=== PATIENT | male | born 1965 | race Caucasian/White ===

== ENCOUNTER 2019-07-12 01:32 | Emergency (ER) | payer SELFPAY ==
[2019-07-12 01:42] VITALS: BP 140/105; PULSE 98; RESP 16; TEMP 36.6; O2SAT 96; BMI 32.9
--- NOTE | 2019-07-12 01:46 | ED_ITS ---
Entered by Le Metzger, acting as scribe for NilsValeriyestefanía Tipton DO Jul 12, 2019 01:32 HPI - Fall General: Chief Complaint: Fall Stated Complaint: FALL Time Seen by Provider: 07/12/19 01:43 Source: patient and family Mode of arrival: wheelchair History of Present Illness: HPI Narrative: 54 y/o male presents to the ED with complaint of pain post fall. states he has had low grade fever, body aches, JAIMES, and cough since Saturday. Tonight he had a syncopal episode and fell in the floor. He was sitting on a bar stool eating a sandwich, when this occurred. states she found him laying on the hardwood floor. Since the fall he reports sharp pains in his left chest that are worsened with deep breaths/ movement. He states he has had broken ribs in the past and this pain feels similar to that. MD complaint: fall Fall from: chair Place fall occurred: home Loss of consciousness: Yes Context: recent illness Location of injury: chest Severity: moderate Quality: sharp Associated symptoms-after fall: Reports chest pain, headache(s) and neck pain; Denies confusion, hematuria or vertigo Review of Systems Const: Reports: fever, chills and body aches Eyes: Denies: change in vision or blurry vision ENMT: Reports: painful swallowing; Denies: swelling of lips/tongue, bleeding gums, dental pain, Change in hearing, nose bleeds, post nasal drip or facial/sinus pain Card: Reports: chest pain; Denies: palpitations, irregular heart rhythm, edema, swelling of feet/ankles or shortness of breath when lying down Resp: Reports: non-productive cough; Denies: productive cough or wheezing GI: Denies: nausea, vomiting, rectal pain, blood in stool or black tarry stool : Denies: difficulty urinating, painful urination, urinary frequency, urinary urgency or blood in urine Musc: Reports: neck pain; Denies: redness or joint warmth Skin/Breast: Denies: rash, itching or redness Neuro: Reports: headache; Denies: dizziness, vertigo, confusion or seizure-like activity Psych: Denies: anxiety, visual hallucinations or auditory hallucinations PFS ED PFSH: Social History Smoking and tobacco status: current every day smoker Physical Exam Const: COMMON NORMALS: alert GENERAL APPEARANCE: well developed ORIENTATION/CONSCIOUSNESS: Yes awake, Yes oriented to person, Yes oriented to place and Yes oriented to time HENMT: COMMON NORMALS: normocephalic, external ears normal, external nose normal and moist oral mucous membranes HEAD & SCALP: normocephalic; no scalp tenderness FACE & SINUS: normal facial exam NOSE: external nose normal and no nasal discharge EXTERNAL EAR: Yes external ears normal MOUTH: tongue normal THROAT: posterior oropharynx not normal and no peritonsillar mass Eye: COMMON NORMALS: PERRL, EOMs intact bilaterally and conjunctivae normal EYELID: eyelids normal CONJUNCTIVA: Yes conjunctivae normal PUPIL: Yes PERRL Neck/C-Spine: COMMON NORMALS: full ROM CERVICAL SPINE: Yes normal cervical lordosis and No cervical spine tenderness Chest: CHEST: Yes tenderness (left) rib Resp: EFFORT & INSPECTION: No tachypneic, No respiratory distress, No retractions, No uses accessory muscles and No tracheal deviation AUSCULTATION: no rhonchi, no wheezes and diminished lung sounds (mild in the bases) Cardio: COMMON NORMALS: regular rate and regular rhythm RATE: regular rate RHYTHM: regular rhythm HEART SOUNDS: no murmurs PERIPHERAL PULSES: radial pulses present GI: INSPECTION: No abdominal distension AUSCULTATION: No hyperactive bowel sounds and No hypoactive bowel sounds PALPATION: No tender, No guarding and No rigid PERCUSSION: no dullness to percussion and no tympanic to percussion : COMMON NORMALS: Yes no CVA tenderness BLADDER/KIDNEY EXAM: Yes no CVA tenderness Back/Pelvis: COMMON NORMALS: no CVA tenderness Neuro: SENSORIUM/ORIENTATION: Yes alert, Yes oriented to person, Yes oriented to place and Yes oriented to time Psych: COMMON NORMALS: mental status grossly normal and speech normal SPEECH: Yes normal speech Skin: COMMON NORMALS: no rashes or lesions noted GENERAL SKIN EXAM: no rashes or lesions noted Course Vital Signs: Vital signs: Vital Signs Temperature 98.4 F 07/12/19 04:44 Pulse Rate 98 07/12/19 04:44 Respiratory Rate 16 07/12/19 04:44 Blood Pressure 102/62 07/12/19 04:44 Pulse Oximetry 98 07/12/19 04:44 MDM - Fall MDM Narrative: Medical decision making narrative: Small anterior rib fracture without displacement. No other lung findings. No leukocytosis. Bicarbonate level was low. Head CT is negative. He is flu a positive. He is feeling much better after 1.5 L of fluid. Lab Data: Labs: Lab Results 07/12/19 07/12/19 07/12/19 Range/Units 02:14 02:14 02:14 WBC 5.1 (4.0-10.0) 10^3/ uL RBC 5.20 (4.1-5.3) 10^6/u L Hgb 15.3 (11.7-16.6) g/dL Hct 46.5 (42.0-52.0) % MCV 89.4 (80-94) fL MCH 29.4 (28.0-34.0) pg MCHC 32.9 (30.0-36.0) g/dL RDW 13.5 (12.1-15.1) % Plt Count 150 (130-400) 10^3/c mm MPV 11.7 H (7.4-10.4) fL Neut % (Auto) 64.1 % Lymph % (Auto) 22.3 % [place] % (Auto) 12.6 % Eos % (Auto) 0.6 % Baso % (Auto) 0.2 % Neut # (Auto) 3.3 (1.8-7.7) 10^3/u L Lymph # (Auto) 1.1 (0.8-4.8) 10^3/u L [place] # (Auto) 0.6 (0.2-0.9) 10^3/u L Eos # (Auto) 0.0 (0.0-0.8) 10^3/u L Baso # (Auto) 0.0 (0.0-0.1) 10^3/u L Nucleated RBC % (a uto) 0 % Nucleated RBCs # 0.0 /100WBC Sodium 129 L (136-145) mmol/L Potassium 4.0 (3.5-5.1) mmol/L Chloride 94 L (98-107) mmol/L Carbon Dioxide 19 L (22-29) mmol/L Anion Gap 20.0 H (5-19) BUN 14 (6-20) mg/dL Creatinine 1.0 (0.7-1.2) mg/dL GFR Calculation 78.2 L (90-130) mL/min Glucose 116 H (65-115) mg/dL Calcium 9.5 (8.5-10.5) mg/dL Magnesium 1.9 (1.7-2.3) mg/dL Total Bilirubin 0.2 (0.15-1.2) mg/dL AST 29 (0-40) U/L ALT 26 (0-41) U/L Alkaline Phosphata se 61 (40-130) IU/L Creatine Kinase 467 H* (39-308) U/L Troponin T Baselin e 7 (0-15) ng/mL Troponin T 120 Min [place] (0-15) ng/mL Delta Troponin T (0-10) ABS# Total Protein 7.4 (6.6-8.7) g/dL Albumin 4.2 (3.5-5.2) g/dL Globulin 3.2 (1.3-4.6) g/dL Influenza Type A A g (Negative) POC Influenza B Ag (Negative) 07/12/19 07/12/19 Range/Units 02: 04:09 WBC (4.0-10.0) 10^3/ uL RBC (4.1-5.3) 10^6/u L Hgb (11.7-16.6) g/dL Hct (42.0-52.0) % MCV (80-94) fL MCH (28.0-34.0) pg MCHC (30.0-36.0) g/dL RDW (12.1-15.1) % Plt Count (130-400) 10^3/c mm MPV (7.4-10.4) fL Neut % (Auto) % Lymph % (Auto) % [place] % (Auto) % Eos % (Auto) % Baso % (Auto) % Neut # (Auto) (1.8-7.7) 10^3/u L Lymph # (Auto) (0.8-4.8) 10^3/u L [place] # (Auto) (0.2-0.9) 10^3/u L Eos # (Auto) (0.0-0.8) 10^3/u L Baso # (Auto) (0.0-0.1) 10^3/u L Nucleated RBC % (a uto) % Nucleated RBCs # /100WBC Sodium (136-145) mmol/L Potassium (3.5-5.1) mmol/L Chloride (98-107) mmol/L Carbon Dioxide (22-29) mmol/L Anion Gap (5-19) BUN (6-20) mg/dL Creatinine (0.7-1.2) mg/dL GFR Calculation (90-130) mL/min Glucose (65-115) mg/dL Calcium (8.5-10.5) mg/dL Magnesium (1.7-2.3) mg/dL Total Bilirubin (0.15-1.2) mg/dL AST (0-40) U/L ALT (0-41) U/L Alkaline Phosphata se (40-130) IU/L Creatine Kinase (39-308) U/L Troponin T Baselin e (0-15) ng/mL Troponin T 120 Min [place] 8.30 (0-15) ng/mL Delta Troponin T 1.30 (0-10) ABS# Total Protein (6.6-8.7) g/dL Albumin (3.5-5.2) g/dL Globulin (1.3-4.6) g/dL Influenza Type A A g Positive H (Negative) POC Influenza B Ag Negative (Negative) Imaging Data^: CT Head: Radiologist's impression: [place] [address] CT Scan Report Signed Patient: Hieu Galvan #: [id number] : 1965Acct#:[id number] Age/Sex: 54 / MADM Date: 07/12/19 Loc: ERRoom/Bed: Attending Dr: Ordering Provider/Ordering MD: Valeriy Wray DO Date of Service: 07/12/19 Procedure(s): CT head wo con* [id number] Accession Number(s): [id number] Report Number: [id number] PROCEDURE INFORMATION: Exam: CT Head Without Contrast Exam date and time: 07/12/2019 2:26 AM Age: 54 years old Clinical indication: Syncope and collapse TECHNIQUE: Imaging protocol: Computed tomography of the head without contrast. Total DLP: 844.38 mGy-cm Radiation optimization: All CT scans at this facility use at least one of these dose optimization techniques: automated exposure control; mA and/or kV adjustment per patient size (includes targeted exams where dose is matched to clinical indication); or iterative reconstruction. COMPARISON: No relevant prior studies available. FINDINGS: Brain: No hemorrhage. No significant white matter disease. No edema. Ventricles: No hydrocephalus. Bones/joints: No acute fracture. Sinuses: Minimal-mild chronic sinusitis. Mastoid air cells: No significant mastoid effusion. Soft tissues: Unremarkable. Discharge Plan Discharge Patient Disposition: Home, Self-Care Clinical Impression: Influenza A Fracture of rib Qualifiers: Encounter type: initial encounter Rib fracture type: single rib Fracture type: closed Laterality: left Qualified Code(s): S22.32XA - Fracture of one rib, left side, initial encounter for closed fracture Condition: Stable Prescriptions: New Tamiflu 75 mg capsule 75 mg PO Q12H 5 Days Qty: 10 RF: 0 [place] 7.5-325 mg tablet 1 tab PO Q6H Qty: 7 RF: 0 Zofran 4 mg tablet 4 mg PO Q6H PRN (Reason: nausea and vomiting) Qty: 7 RF: 0 No Action allopurinol 100 mg tablet 100 mg PO DAILY RF: 0 Discharge Orders: Discharge Order (Routine); Ordered 07/12/19 Ordered By: Valeriy Wray Discharge Diet: Advance as tolerated Discharge Activity: Increase activity as tolerated Patient Instructions: Influenza (ED) Activity Restrictions/Additional Instructions: Return for continued fevers, mental status changes, worsening shortness of breath, other concerning symptoms. 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
--- NOTE | 2019-07-12 02:01 | CTR_ITS ---
PROCEDURE INFORMATION: Exam: CT Head Without Contrast Exam date and time: 07/12/2019 2:26 AM Age: 54 years old Clinical indication: Syncope and collapse TECHNIQUE: Imaging protocol: Computed tomography of the head without contrast. Total DLP: 844.38 mGy-cm Radiation optimization: All CT scans at this facility use at least one of these dose optimization techniques: automated exposure control; mA and/or kV adjustment per patient size (includes targeted exams where dose is matched to clinical indication); or iterative reconstruction. COMPARISON: No relevant prior studies available. FINDINGS: Brain: No hemorrhage. No significant white matter disease. No edema. Ventricles: No hydrocephalus. Bones/joints: No acute fracture. Sinuses: Minimal-mild chronic sinusitis. Mastoid air cells: No significant mastoid effusion. Soft tissues: Unremarkable. CT/CT head wo con* [id number] IMPRESSION: 1. No acute intracranial abnormality. 2. Minimal-mild chronic sinusitis. Radiation Dose CTDIVOL = (mGy): DLP = 844.38 (mGy-cm)
--- NOTE | 2019-07-12 02:01 | XR_ITS ---
WS: [id number] XR chest 1V portable [id number] REASON FOR EXAM: sob FINDINGS: There is evidence of previous resection of the distal right clavicle. The seventh rib shows a fracture not seen on February 02, 2010. The heart mediastinum are normal. The lung mcclain are clear no pneumonia or congestive failure. XR/XR chest 1V portable [id number] IMPRESSION: Remote fracture of the clavicle and the seventh rib on the right.
--- NOTE | 2019-07-12 02:03 | ECG_ITS ---
Measurements Intervals [place] Rate: 98 P: 55 CA: 142 QRS: 115 QRSD: 147 T: 34 QT: 364 QTc: 465 SINUS RHYTHM RIGHT BUNDLE BRANCH BLOCK [120+ ms QRS DURATION, UPRIGHT V1, 40+ ms S IN I/aV I/aVL/V4/V5/V6] LEFT POSTERIOR FASCICULAR BLOCK [QRS AXIS > 109, INFERIOR Q] No previous ECG available for comparison Electronically Signed On 07-12-2019 13:06:06 BRACER by Dania Camacho M.D. [id number]
[2019-07-12] MEDS: sodium chloride 0.9% 1,000 ML 999 ML IV (02:14)
[2019-07-12 02:15] VITALS: RESP 22
[2019-07-12] MEDS: ketorolac 30 mg/mL INJ IVP (02:15)
[2019-07-12] MEDS: ondansetron 2 mg/ML SDV 2 mL 4 MG IVP (02:15)
[2019-07-12] MEDS: HYDROmorphone 1 mg/mL INJ 1 mL IVP ×2 (02:15→02:57)
[2019-07-12 02:36] VITALS: BP 123/70; PULSE 83; O2SAT 96
[2019-07-12 02:47] LABS: Basophils % 0.2 %; Eosinophils % 0.6 %; Hematocrit 46.5 % (42.0-52.0); Hemoglobin 15.3 g/dL (11.7-16.6); Lymphocytes # 1.1 10^3/uL (0.8-4.8); Lymphocytes % 22.3 %; Mean Corpuscular HGB Conc 32.9 g/dL (30.0-36.0); Mean Corpuscular Hemoglobin 29.4 pg (28.0-34.0); Mean Corpuscular Volume 89.4 fL (80-94); Mean Platelet Volume 11.7 fL (7.4-10.4); Monocytes # 0.6 10^3/uL (0.2-0.9); Monocytes % 12.6 %; Neutrophils # 3.3 10^3/uL (1.8-7.7); Neutrophils % 64.1 %; Nucleated Red Blood Cells % 0 %; Platelet Count 150 10^3/cmm (130-400); Red Cell Distribution Width 13.5 % (12.1-15.1); White Blood Count 5.1 10^3/uL (4.0-10.0)
[2019-07-12 02:57] VITALS: RESP 16
[2019-07-12 03:11] LABS: Alanine Aminotransferase 26 U/L (0-41); Albumin Level 4.2 g/dL (3.5-5.2); Alkaline Phosphatase 61 IU/L (40-130); Aspartate Amino Transferase 29 U/L (0-40); Blood Urea Nitrogen 14 mg/dL (6-20); Calcium 9.5 mg/dL (8.5-10.5); Carbon Dioxide 19 mmol/L (22-29); Chloride 94 mmol/L (98-107); Globulin 3.2 g/dL (1.3-4.6); Glomerular Filtration Rate 78.2 mL/min (90-130); Glucose 116 mg/dL (65-115); Magnesium 1.9 mg/dL (1.7-2.3); Sodium 129 mmol/L (136-145); Total Bilirubin 0.2 mg/dL (0.15-1.2); Total Protein 7.4 g/dL (6.6-8.7)
[2019-07-12 03:27] LABS: Creatine Phosphokinase 467 U/L (39-308); Troponin(5th) Baseline 7 ng/mL (0-15)
[2019-07-12 03:33] LABS: Influenza A by IFA Positive (Negative); Influenza B by IFA Negative (Negative)
[2019-07-12] MEDS: sodium chloride 0.9% 500 ML 999 ML IV (04:03)
[2019-07-12 04:06] VITALS: BP 113/73; PULSE 74; RESP 16; O2SAT 93
[2019-07-12] MEDS: oseltamivir phosphate 75 mg Capsule PO (04:17)
[2019-07-12 04:44] VITALS: BP 102/62; PULSE 98; RESP 16; TEMP 36.9; O2SAT 98
== END 2019-07-12 04:56 | disposition home or self-care (01) ==
PROVIDERS: Emergency Provider Emergency Medicine
DX: S22.31XA Fracture of one rib, right side, initial encounter for closed fracture (principal); J09.X2 Influenza due to identified novel influenza A virus with other respiratory manifestations; F17.200 Nicotine dependence, unspecified, uncomplicated; W08.XXXA Fall from other furniture, initial encounter; Y92.009 Unspecified place in unspecified non-institutional (private) residence as the place of occurrence of the external cause
CPT/HCPCS: 36415; 70450; 71045; 80053; 82550; 83735; 84484; 85025; 87040; 87804; 93005; 96360; 96361; 96374; 96375; 96376; 99284; A9270; J1170; J1885; J2405; J7030; J7040

== ENCOUNTER 2020-04-22 17:03 | Emergency (ER) | payer SELFPAY ==
[2020-04-22] VITALS (11 sets, daily range): BP systolic 105–143; BP diastolic 75–93; PULSE 101–116; RESP 16–30; TEMP 36.4; O2SAT 94–98; BMI 32.5
--- NOTE | 2020-04-22 17:12 | ECG_ITS ---
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 Measurements Intervals [place] Rate: 109 P: 41 [place]: 165 QRS: 88 QRSD: 143 T: 1 QT: 349 QTc: 471 Interpretive Statements SINUS TACHYCARDIA RIGHT BUNDLE BRANCH BLOCK [120+ ms QRS DURATION, UPRIGHT V1, 40+ ms S IN I/aVL/V4/V5/V6] Compared to ECG 07/12/2019 01:47:21 Sinus rhythm no longer present Left posterior fascicular block no longer present Electronically Signed On 04-22-2020 19:15:44 TOP INVENTORY CONTROL EXECUTIVE by Bogdan Caruso M.D. [id number] f
[2020-04-22] MEDS: HYDROmorphone 1 mg/mL INJ 1 mL IVP ×3 (17:18→19:17)
--- NOTE | 2020-04-22 17:19 | ECG_ITS ---
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 Measurements Intervals [place] Rate: 113 P: 27 IN: 169 QRS: 70 QRSD: 136 T: -4 QT: 337 QTc: 464 Interpretive Statements SINUS TACHYCARDIA WITH OCCASIONAL VENTRICULAR PREMATURE COMPLEXES RIGHT BUNDLE BRANCH BLOCK [120+ ms QRS DURATION, UPRIGHT V1, 40+ ms S IN I/aVL/V4/V5/V6] Compared to ECG 04/22/2020 17:08:06 Ventricular premature complex(es) now present Electronically Signed On 04-22-2020 19:15:49 DIRECTOR SUMMER SESSIONS by Bogdan Caruso M.D. [id number] f
--- NOTE | 2020-04-22 17:19 | CTR_ITS ---
PROCEDURE INFORMATION: Exam: CT Angiography Chest With Contrast Exam date and time: 04/22/2020 6:18 PM Age: 55 years old Clinical indication: Chest pain; On breathing; Patient HX: C/O cp and SOB; Additional info: Chest pain, SOB, tachycardia TECHNIQUE: Imaging protocol: Computed tomographic angiography of the chest with intravenous contrast. 3D rendering (Not supervised by radiologist): MIP and/or 3D reconstructed images were created by the technologist. Radiation optimization: All CT scans at this facility use at least one of these dose optimization techniques: automated exposure control; mA and/or kV adjustment per patient size (includes targeted exams where dose is matched to clinical indication); or iterative reconstruction. Contrast material: OMNI 350; Contrast volume: 95 ml; Contrast route: INTRAVENOUS (IV); COMPARISON: CR XR chest 1V portable [id number] 04/22/2020 6:05 PM RADIATION DOSE METRICS: Total DLP (mGy-cm): 1123.51 FINDINGS: Pulmonary arteries: There is no pulmonary embolus. Aorta: Unremarkable. No aortic aneurysm. No aortic dissection. Lungs: There is diffuse interstitial and ground-glass opacity in the lungs compatible with mild pneumonitis versus CHF. More prominent bibasilar airspace opacities and air bronchograms are noted concerning for pneumonic infiltrates with atelectasis. There are mild emphysematous changes. Pleural space: There is a small left pleural effusion. Heart: Unremarkable. No cardiomegaly. No pericardial effusion. Mediastinal space: A small hiatal hernia is present. Lymph nodes: Unremarkable. No enlarged lymph nodes. Bones/joints: Old right rib fractures are noted. Soft tissues: Unremarkable. CT/CT angio chest PE protcl [id number] IMPRESSION: 1. There is no pulmonary embolus. 2. There is diffuse interstitial and ground-glass opacity in the lungs compatible with mild pneumonitis versus CHF. 3. More prominent bibasilar airspace opacities and air bronchograms are noted concerning for pneumonic infiltrates with atelectasis. Radiation Dose CTDIVOL = (mGy): DLP = 1123.51 (mGy-cm)
--- NOTE | 2020-04-22 17:19 | XRR_ITS ---
PROCEDURE INFORMATION: Exam: XR Chest, 1 View Exam date and time: 04/22/2020 6:01 PM Age: 55 years old Clinical indication: Chest pain TECHNIQUE: Imaging protocol: XR of the chest Views: 1 view. COMPARISON: CR XR chest 1V portable [id number] 07/12/2019 2:31 AM FINDINGS: Lungs: There is interstitial prominence compatible with bronchitis, viral pneumonitis or mild interstitial edema. Nonspecific bibasilar streaky opacity is present, consistent with atelectasis, edema, or pneumonia. Pleural space: Unremarkable. No pleural effusion. No pneumothorax. Heart/Mediastinum: The heart is enlarged. Bones/joints: Old right rib fracture deformities are noted. Probable postoperative resection of the distal right clavicle is noted. No acute bony abnormality is identified. XR/XR chest 1V portable [id number] IMPRESSION: 1. There is interstitial prominence compatible with bronchitis, viral pneumonitis or mild interstitial edema. 2. Nonspecific bibasilar streaky opacity is present, consistent with atelectasis, edema, or pneumonia.
[2020-04-22 17:24] LABS: ABG PCO2 41.1 mmHg (35-45); ABG PH Result 7.35 (7.35-7.45); Alveolar-Arterial Oxygen Gradi 3.1 mmHg (5-10); Arterial Blood Gas Hematocrit 45.3 % (42-52); Base Excess ABG -3.1 mmol/L (-2.0-2.0); Blood Gas Allen Test Pos; Blood Gas Sample Site Radial, right; Blood Gas Sample Type Arterial; Carboxyhemoglobin 4.2 %THgb (0.4-20.1); HCO3 ABG 22.5 mmol/L (22-26); HGB O2 Sat 90.8 % (95-100); Ionized Calcium Level - ABG 1.2 mmol/L (1.1-1.4); Methemoglobin 0.9 % (0.4-1.5); Oxygen Device NC; Oxygen Saturation ABG 95.8; PO2 ABG 75.4 mmHg (80.0-100.0); Potassium Level - ABG 3.8 mmol/L (3.5-5.0); Total Hemoglobin 14.8 g/dL (14-18)
[2020-04-22] MEDS: nitroglycerin drip 50 MG/250 ML PREMIX IV (18:06)
[2020-04-22 18:34] LABS: Basophils # 0.1 10^3/uL (0.0-0.1); Basophils % 0.4 %; Eosinophils # 0.4 10^3/uL (0.0-0.8); Hematocrit 43.8 % (42.0-52.0); Hemoglobin 14.4 g/dL (11.7-16.6); Lymphocytes # 2.8 10^3/uL (0.8-4.8); Lymphocytes % 14.4 %; Mean Corpuscular HGB Conc 32.9 g/dL (30.0-36.0); Mean Corpuscular Hemoglobin 30.9 pg (28.0-34.0); Mean Platelet Volume 12.7 fL (7.4-10.4); Monocytes # 1.5 10^3/uL (0.2-0.9); Monocytes % 7.6 %; Neutrophils # 14.58 10^3/uL (1.8-7.7); Neutrophils % 75.2 %; Nucleated Red Blood Cells % 0 %; Platelet Count 233 10^3/cmm (130-400); Red Blood Count 4.66 10^6/uL (4.1-5.3); Red Cell Distribution Width 13.9 % (12.1-15.1); White Blood Count 19.4 10^3/uL (4.0-10.0)
[2020-04-22 18:40] LABS: INR 0.91 (0.8-1.2)
[2020-04-22 18:51] LABS: Troponin(5th) Baseline 6 ng/L (0-15)
[2020-04-22 18:56] LABS: Alanine Aminotransferase 23 U/L (0-41); Albumin Level 4.6 g/dL (3.5-5.2); Alkaline Phosphatase 64 IU/L (40-130); Aspartate Amino Transferase 20 U/L (0-40); Blood Urea Nitrogen 16 mg/dL (6-20); Calcium 9.4 mg/dL (8.5-10.5); Carbon Dioxide 24 mmol/L (22-29); Chloride 101 mmol/L (98-107); Creatine Phosphokinase 302 U/L (39-308); Globulin 2.6 g/dL (1.3-4.6); Glomerular Filtration Rate 77.9 mL/min (90-130); Glucose 121 mg/dL (65-115); Lipase 63 U/L (13-60); NT Pro B Type Natriuretic Pept 9 pg/mL (0-125); Osmolality Calculated 286 mOsm/kg (285-295); Sodium 137 mmol/L (136-145); Total Bilirubin 0.2 mg/dL (0.15-1.2); Total Protein 7.2 g/dL (6.6-8.7)
--- NOTE | 2020-04-22 19:08 | ED_ITS ---
HPI - Chest Pain General: Chief Complaint: Chest Pain Stated Complaint: CHEST PAIN Time Seen by Provider: 04/22/20 17:19 Source: patient and EMS Mode of arrival: EMS Limitations: no limitations History of Present Illness: HPI narrative: Patient was driving home from work when he developed sudden onset shortness of breath and chest pain. Symptoms got so severe that he pulled over and called for an ambulance. When the ambulance drivers got there the patient was noted to be cyanotic on his lips. Oxygen saturation was about 89 or 90% on room air. He was started on oxygen, given morphine, then fentanyl, and aspirin. Fentanyl helped with his pain, nothing else needed. He was also given 2 sublingual nitroglycerin tablets. He was then brought in here to be evaluated. The patient smokes cigarettes, and has no prior cardiac history, has no history of pulmonary embolism. MD complaint: chest pain Onset (ago): hour(s) (1) Timing of current episode: constant Prior episodes: No Onset: during rest Pain location: left chest Pain radiation: none Severity: severe Quality: sharp Relieving factors: nothing Exacerbating factors: nothing Associated symptoms: Reports dyspnea; Deny abdominal pain, diaphoresis, fever(s), leg edema, nausea, palpitations, sense of impending doom, syncope or vomiting Treatment prior to arrival: aspirin, nitroglycerin, oxygen and other (fentanyl, morphine) Review of Systems General: Reports: 10 or more systems reviewed and unremarkable except in HPI and below Const: Denies: fever(s) or diaphoresis Eyes: Denies: change in vision or blurry vision ENMT: Denies: throat pain, enlarged tonsils, odynophagia, hoarseness, mouth pain or swelling of lips/tongue Card: Denies: palpitations or syncope Resp: Reports: dyspnea GI: Denies: abdominal pain, nausea or vomiting : Denies: flank pain, dysuria, urinary frequency, urinary urgency or urinary hesitancy Musc: Denies: neck pain, back pain or extremity swelling Skin/Breast: Denies: rash, pruritus or erythema Neuro: Denies: headache(s), numbness in extremities or weakness in extremities Endo: Denies: polyuria, polydipsia or tired all the time [facility] ED PFSH: Social History (Reviewed 04/22/20 @ 19:11 by Christoph Dennis MD[place] [facility] [place] Smoking and tobacco status: current every day smoker Physical Exam Const: COMMON NORMALS: average body habitus, patient oriented x3, no limitations, healthy appearing, alert and well nourished GENERAL APPEARANCE: in distress and anxious HENMT: COMMON NORMALS: normocephalic, atraumatic and moist oral mucous membranes HEAD & SCALP: normocephalic and atraumatic Eye: COMMON NORMALS: Equal, round and reactive pupils present, EOMs intact bilaterally, conjunctivae normal and no scleral icterus CONJUNCTIVA: Yes conjunctivae normal PUPIL: Yes Equal, round and reactive pupils present Neck/C-Spine: COMMON NORMALS: no meningeal signs and no JVD Chest: COMMONS NORMALS: normal inspection of the chest and normal palpation of entire chest wall Resp: COMMON NORMALS: No retractions, No use of accessory muscles, clear to auscultation bilaterally and percussion normal EFFORT & INSPECTION: Yes tachypneic AUSCULTATION: clear to auscultation bilaterally PERCUSSION: percussion normal Cardio: COMMON NORMALS: no JVD, regular rhythm, S1 normal heart sound present, S2 normal heart sound present, No gallops present (Cardio), No clicks present (Cardio), No murmurs present (Cardio), No rub (Cardio) and Peripheral pulses 2+ throughout RATE: tachycardic RHYTHM: regular rhythm HEART SOUNDS: S1 normal heart sound present and S2 normal heart sound present PERIPHERAL PULSES: Peripheral pulses 2+ throughout GI: COMMON NORMALS: Normal to inspection, nondistended, normoactive bowel sounds present, Soft to palpation, non-tender, No hepatosplenomegaly present, no masses and no bruits PALPATION: Yes Soft to palpation and Yes No hepatosplenomegaly present Extremity: COMMON NORMALS: normal to inspection, full ROM, capillary refill normal, no calf tenderness and no pedal edema Neuro: COMMON NORMALS: patient oriented x3 SENSORIUM/ORIENTATION: Yes alert MENINGEAL SIGNS: Yes no meningeal signs Skin: COMMON NORMALS: no rashes or lesions noted, no wounds, turgor normal, no jaundice, no petechiae and no mottling GENERAL SKIN EXAM: no rashes or lesions noted and turgor normal Course ED course: 57-year-old gentleman who presents to the emergency department with sudden onset of shortness of breath and chest pain. Evaluation in the emergency department showed negative high sensitivity troponin x 2, CTA negative for a PE but showed consolidation and ground glass appearance. He also had leucocytosis and was managed as a case of pneumonia. He informed me that he has a history of lung disease and always has groundglass opacities. He will follow-up with his primary care provider. Vital Signs: Vital signs: Vital Signs Temperature 97.6 F 04/22/20 17:29 Pulse Rate 108 H 04/22/20 22:05 Respiratory Rate 16 04/22/20 22:05 Blood Pressure 133/88 04/22/20 22:05 Pulse Oximetry 98 04/22/20 22:05 MDM - Chest Pain MDM Narrative: Medical decision making narrative: 55-year-old male with pneumonia. He presented to the emergency department in significant distress and there are concerns for a PE or ACS. Evaluation was negative for pulmonary embolism and acute coronary syndrome. He had leukocytosis and pneumonia. He was also tachycardic. He however did not want to stay in the hospital and agreed to be discharged home on oral medications. With the tachycardia, pneumonia, leukocytosis, meets the sepsis criteria, however he declined to stay in the hospital and insisted on being discharged home. He will return for any concerns. Medical Records: Attestation: I reviewed the patient's medical records. Lab Data: Attestation: I reviewed the patient's lab results. Labs: Lab Results 04/22/20 04/22/20 04/22/20 Range/Units 17:10 17:14 17:14 WBC 19.4 H (4.0-10.0) 10^3/ uL RBC 4.66 (4.1-5.3) 10^6/u L Hgb 14.4 (11.7-16.6) g/dL Hct 43.8 (42.0-52.0) % MCV 94.0 (80-94) fL MCH 30.9 (28.0-34.0) pg MCHC 32.9 (30.0-36.0) g/dL RDW 13.9 (12.1-15.1) % Plt Count 233 (130-400) 10^3/c mm MPV 12.7 H (7.4-10.4) fL Neut % (Auto) 75.2 % Lymph % (Auto) 14.4 % [place] % (Auto) 7.6 % Eos % (Auto) 2.0 % Baso % (Auto) 0.4 % Neut # (Auto) 14.58 H (1.8-7.7) 10^3/u L Lymph # (Auto) 2.8 (0.8-4.8) 10^3/u L [place] # (Auto) 1.5 H (0.2-0.9) 10^3/u L Eos # (Auto) 0.4 (0.0-0.8) 10^3/u L Baso # (Auto) 0.1 (0.0-0.1) 10^3/u L Nucleated RBC % (a uto) 0 % Nucleated RBCs # 0.0 /100WBC PT 12.50 (12.1-14.9) SECO NDS INR 0.91 (0.8-1.2) D-Dimer 1.50 H (0-0.59) ug/mIFE U Specimen Type Arterial Sample Site Radial, right ABG pH 7.35 (7.35-7.45) ABG pCO2 41.1 (35-45) mmHg ABG pO2 75.4 L (80.0-100.0) mmH g ABG HCO3 22.5 (22-26) mmol/L ABG O2 Saturation 95.8 ABG Base Excess -3.1 L (-2.0-2.0) mmol/ L Mason Test Pos A-a O2 Gradient 3.1 L (5-10) mmHg Hematocrit 45.3 (42-52) % Hgb O2 Saturation 90.8 L (95-100) % Carboxyhemoglobin 4.2 (0.4-20.1) %THgb Methemoglobin 0.9 (0.4-1.5) % Total Hemoglobin 14.8 (14-18) g/dL Sodium 141.0 (131-143) mmol/L Potassium 3.8 (3.5-5.0) mmol/L Glucose 125.0 H (70-115) mg/dL Ionized Calcium 1.2 (1.1-1.4) mmol/L O2 Delivery Device Nc O2 Liters/Min 3.0 % Computer Processing Scheduler ID Jlg Chloride (98-107) mmol/L Carbon Dioxide (22-29) mmol/L Anion Gap (5-19) BUN (6-20) mg/dL Creatinine (0.7-1.2) mg/dL GFR Calculation (90-130) mL/min Calculated Osmolal ity (285-295) mOsm/k g Calcium (8.5-10.5) mg/dL Total Bilirubin (0.15-1.2) mg/dL AST (0-40) U/L ALT (0-41) U/L Alkaline Phosphata se (40-130) IU/L Creatine Kinase (39-308) U/L Troponin T Baselin e (0-15) ng/L Troponin T 120 Min [place] (0-15) ng/L Delta Troponin T (0-10) ABS# NT-Pro-B Natriuret Pep (0-125) pg/mL Total Protein (6.6-8.7) g/dL Albumin (3.5-5.2) g/dL Globulin (1.3-4.6) g/dL Lipase (13-60) U/L SARS-CoV-2 Ag (Rap id) (Negative) 04/22/20 04/22/20 04/22/20 Range/Units 17:14 17:14 19:15 WBC (4.0-10.0) 10^3/ uL RBC (4.1-5.3) 10^6/u L Hgb (11.7-16.6) g/dL Hct (42.0-52.0) % MCV (80-94) fL MCH (28.0-34.0) pg MCHC (30.0-36.0) g/dL RDW (12.1-15.1) % Plt Count (130-400) 10^3/c mm MPV (7.4-10.4) fL Neut % (Auto) % Lymph % (Auto) % [place] % (Auto) % Eos % (Auto) % Baso % (Auto) % Neut # (Auto) (1.8-7.7) 10^3/u L Lymph # (Auto) (0.8-4.8) 10^3/u L [place] # (Auto) (0.2-0.9) 10^3/u L Eos # (Auto) (0.0-0.8) 10^3/u L Baso # (Auto) (0.0-0.1) 10^3/u L Nucleated RBC % (a uto) % Nucleated RBCs # /100WBC PT (12.1-14.9) SECO NDS INR (0.8-1.2) D-Dimer (0-0.59) ug/mIFE U Specimen Type Sample Site ABG pH (7.35-7.45) ABG pCO2 (35-45) mmHg ABG pO2 (80.0-100.0) mmH g ABG HCO3 (22-26) mmol/L ABG O2 Saturation ABG Base Excess (-2.0-2.0) mmol/ L Mason Test A-a O2 Gradient (5-10) mmHg Hematocrit (42-52) % Hgb O2 Saturation (95-100) % Carboxyhemoglobin (0.4-20.1) %THgb Methemoglobin (0.4-1.5) % Total Hemoglobin (14-18) g/dL Sodium 137 (131-143) mmol/L Potassium 4.0 (3.5-5.0) mmol/L Glucose 121 H (70-115) mg/dL Ionized Calcium (1.1-1.4) mmol/L O2 Delivery Device O2 Liters/Min % Computer Processing Scheduler ID Chloride 101 (98-107) mmol/L Carbon Dioxide 24 (22-29) mmol/L Anion Gap 16.0 (5-19) BUN 16 (6-20) mg/dL Creatinine 1.0 (0.7-1.2) mg/dL GFR Calculation 77.9 L (90-130) mL/min Calculated Osmolal ity 286 (285-295) mOsm/k g Calcium 9.4 (8.5-10.5) mg/dL Total Bilirubin 0.2 (0.15-1.2) mg/dL AST 20 (0-40) U/L ALT 23 (0-41) U/L Alkaline Phosphata se 64 (40-130) IU/L Creatine Kinase 302 (39-308) U/L Troponin T Baselin e 6 (0-15) ng/L Troponin T 120 Min [place] 6.76 (0-15) ng/L Delta Troponin T 0.76 (0-10) ABS# NT-Pro-B Natriuret Pep 9 (0-125) pg/mL Total Protein 7.2 (6.6-8.7) g/dL Albumin 4.6 (3.5-5.2) g/dL Globulin 2.6 (1.3-4.6) g/dL Lipase 63 H (13-60) U/L SARS-CoV-2 Ag (Rap id) (Negative) 04/22/20 Range/Units 20:55 WBC (4.0-10.0) 10^3/ uL RBC (4.1-5.3) 10^6/u L Hgb (11.7-16.6) g/dL Hct (42.0-52.0) % MCV (80-94) fL MCH (28.0-34.0) pg MCHC (30.0-36.0) g/dL RDW (12.1-15.1) % Plt Count (130-400) 10^3/c mm MPV (7.4-10.4) fL Neut % (Auto) % Lymph % (Auto) % [place] % (Auto) % Eos % (Auto) % Baso % (Auto) % Neut # (Auto) (1.8-7.7) 10^3/u L Lymph # (Auto) (0.8-4.8) 10^3/u L [place] # (Auto) (0.2-0.9) 10^3/u L Eos # (Auto) (0.0-0.8) 10^3/u L Baso # (Auto) (0.0-0.1) 10^3/u L Nucleated RBC % (a uto) % Nucleated RBCs # /100WBC PT (12.1-14.9) SECO NDS INR (0.8-1.2) D-Dimer (0-0.59) ug/mIFE U Specimen Type Sample Site ABG pH (7.35-7.45) ABG pCO2 (35-45) mmHg ABG pO2 (80.0-100.0) mmH g ABG HCO3 (22-26) mmol/L ABG O2 Saturation ABG Base Excess (-2.0-2.0) mmol/ L Mason Test A-a O2 Gradient (5-10) mmHg Hematocrit (42-52) % Hgb O2 Saturation (95-100) % Carboxyhemoglobin (0.4-20.1) %THgb Methemoglobin (0.4-1.5) % Total Hemoglobin (14-18) g/dL Sodium (131-143) mmol/L Potassium (3.5-5.0) mmol/L Glucose (70-115) mg/dL Ionized Calcium (1.1-1.4) mmol/L O2 Delivery Device O2 Liters/Min % Computer Processing Scheduler ID Chloride (98-107) mmol/L Carbon Dioxide (22-29) mmol/L Anion Gap (5-19) BUN (6-20) mg/dL Creatinine (0.7-1.2) mg/dL GFR Calculation (90-130) mL/min Calculated Osmolal ity (285-295) mOsm/k g Calcium (8.5-10.5) mg/dL Total Bilirubin (0.15-1.2) mg/dL AST (0-40) U/L ALT (0-41) U/L Alkaline Phosphata se (40-130) IU/L Creatine Kinase (39-308) U/L Troponin T Baselin e (0-15) ng/L Troponin T 120 Min [place] (0-15) ng/L Delta Troponin T (0-10) ABS# NT-Pro-B Natriuret Pep (0-125) pg/mL Total Protein (6.6-8.7) g/dL Albumin (3.5-5.2) g/dL Globulin (1.3-4.6) g/dL Lipase (13-60) U/L SARS-CoV-2 Ag (Rap id) Negative (Negative) Imaging Data^: CXR: Attestation: I personally reviewed and interpreted this imaging study as follows: Radiologist's impression: [address] [address] XRay Report Signed Patient: Hieu Galvan LUnkwan #: [id number] : 1965Acct#:[id number] Age/Sex: 55 / MADM Date: 04/22/20 Loc: ERRoom/Bed: Attending Dr: Ordering Provider/Ordering MD: Christoph Dennis MD, [facility] of Service: 04/22/20 Procedure(s): XR chest 1V portable [id number] Accession Number(s): [id number] Report Number: [id number] PROCEDURE INFORMATION: Exam: XR Chest, 1 View Exam date and time: 04/22/2020 6:01 PM Age: 55 years old Clinical indication: Chest pain TECHNIQUE: Imaging protocol: XR of the chest Views: 1 view. COMPARISON: CR XR chest 1V portable [id number] 07/12/2019 2:31 AM FINDINGS: Lungs: There is interstitial prominence compatible with bronchitis, viral pneumonitis or mild interstitial edema. Nonspecific bibasilar streaky opacity is present, consistent with atelectasis, edema, or pneumonia. Pleural space: Unremarkable. No pleural effusion. No pneumothorax. Heart/Mediastinum: The heart is enlarged. Bones/joints: Old right rib fracture deformities are noted. Probable postoperative resection of the distal right clavicle is noted. No acute bony abnormality is identified. XR/XR chest 1V portable [id number] IMPRESSION: 1. There is interstitial prominence compatible with bronchitis, viral pneumonitis or mild interstitial edema. 2. Nonspecific bibasilar streaky opacity is present, consistent with atelectasis, edema, or pneumonia. Dictated By:Amanda Villa Signed By:Kami Villa Date/Time:04/22/201918 DD/ 17 CTA Chest: Radiologist's impression: [address] [address] [address] Scan Report Signed Patient: Hieu Galvan #: [id number] : 1965Acct#:[id number] Age/Sex: 55 / MADM Date: 04/22/20 Loc: ERRoom/Bed: Attending Dr: Ordering Provider/Ordering MD: Christoph Dennis MD, [facility] [place] of Service: 04/22/20 Procedure(s): CT angio chest PE protcl [id number] Accession Number(s): [id number] Report Number: [id number] PROCEDURE INFORMATION: Exam: CT Angiography Chest With Contrast Exam date and time: 04/22/2020 6:18 PM Age: 55 years old Clinical indication: Chest pain; On breathing; Patient HX: C/O cp and SOB; Additional info: Chest pain, SOB, tachycardia TECHNIQUE: Imaging protocol: Computed tomographic angiography of the chest with intravenous contrast. 3D rendering (Not supervised by radiologist): MIP and/or 3D reconstructed images were created by the technologist. Radiation optimization: All CT scans at this facility use at least one of these dose optimization techniques: automated exposure control; mA and/or kV adjustment per patient size (includes targeted exams where dose is matched to clinical indication); or iterative reconstruction. Contrast material: OMNI 350; Contrast volume: 95 ml; Contrast route: INTRAVENOUS (IV); COMPARISON: CR XR chest 1V portable [id number] 04/22/2020 6:05 PM RADIATION DOSE METRICS: Total DLP (mGy-cm): 1123.51 FINDINGS: Pulmonary arteries: There is no pulmonary embolus. Aorta: Unremarkable. No aortic aneurysm. No aortic dissection. Lungs: There is diffuse interstitial and ground-glass opacity in the lungs compatible with mild pneumonitis versus CHF. More prominent bibasilar airspace opacities and air bronchograms are noted concerning for pneumonic infiltrates with atelectasis. There are mild emphysematous changes. Pleural space: There is a small left pleural effusion. Heart: Unremarkable. No cardiomegaly. No pericardial effusion. Mediastinal space: A small hiatal hernia is present. Lymph nodes: Unremarkable. No enlarged lymph nodes. Bones/joints: Old right rib fractures are noted. Soft tissues: Unremarkable. CT/CT angio chest PE protcl [id number] IMPRESSION: 1. There is no pulmonary embolus. 2. There is diffuse interstitial and ground-glass opacity in the lungs compatible with mild pneumonitis versus CHF. 3. More prominent bibasilar airspace opacities and air bronchograms are noted concerning for pneumonic infiltrates with atelectasis. Radiation Dose CTDIVOL = (mGy): DLP = 1123.51 (mGy-cm) Dictated By:Amanda Villa Signed By:Kami Villa Date/Time:04/22/201921 DD/ 20 EKG Data^: EKG 1: Attestation: I personally reviewed and interpreted this EKG as follows: EKG interpretation date: 04/22/20 EKG interpretation time: 17:08 Prior EKG tracings: not available for review Interpretation: Sinus tachycardia. Heart rate 109 bpm. Right bundle branch block. No ST changes. EKG 2: Attestation: I personally reviewed and interpreted this EKG as follows: EKG interpretation date: 04/22/20 EKG interpretation time: 17:17 Prior EKG tracings: available for review Interpretation: Sinus tachycardia. Heart rate 113 bpm. Right bundle branch block. Patient was having increased chest pain at this time so a repeat EKG was done. No significant change from earlier EKG 3: Attestation: I personally reviewed and interpreted this EKG as follows: EKG interpretation date: 04/22/20 EKG interpretation time: 19:16 Prior EKG tracings: available for review Interpretation: Sinus tachycardia. Heart rate 110 bpm. Right bundle branch block. No ST changes. Unchanged from earlier Discharge Plan Discharge Patient Disposition: Home Clinical Impression: Pneumonia Qualifiers: Pneumonia type: due to unspecified organism Laterality: bilateral Lung location: lower lobe of lung Qualified Code(s): J18.9 - Pneumonia, unspecified organism Chest pain Qualifiers: Chest pain type: other chest pain Qualified Code(s): R07.89 - Other chest pain Condition: Stable Prescriptions: New azithromycin 250 mg tablet See Rx Instructions .ROUTE .COMPLEX Qty: 6 RF: 0 amoxicillin 500 mg capsule 1,000 mg PO TID 7 Days Qty: 42 RF: 0 Continued allopurinol 100 mg tablet 100 mg PO DAILY@05 RF: 0 Colcrys 0.6 mg tablet 0.6 mg PO Q1H PRN (Reason: gout pain) RF: 0 Discharge Orders: Discharge ED (Routine); Ordered 04/22/20 Ordered By: Christoph Dennis Referrals: Kassie Flannery TICKET PRINTER [Primary Care Provider] - 1-3 days Discharge Diet: Usual diet Discharge Activity: Increase activity as tolerated Patient Instructions: Pneumonia (ED) Activity Restrictions/Additional Instructions: Return for any new or worsening symptoms. Follow-up with your primary care provider within 2 days. If you have concerns for COVID-19 please self quarantine for 14 days. Coding Level of Care Code ED Ball Fringe Machine Operator for Chg Fwd Exam Comprehensive
[2020-04-22] MEDS: iohexol 350 mg/mL 100 mL Btl IV (19:10)
--- NOTE | 2020-04-22 19:19 | ECG_ITS ---
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 Measurements Intervals [place] Rate: 110 P: 32 OR: 169 QRS: 84 QRSD: 138 T: 5 QT: 340 QTc: 460 Interpretive Statements SINUS TACHYCARDIA RIGHT BUNDLE BRANCH BLOCK [120+ ms QRS DURATION, UPRIGHT V1, 40+ ms S IN I/aVL/V4/V5/V6] Compared to ECG 04/22/2020 17:17:30 Ventricular premature complex(es) no longer present Electronically Signed On 04-22-2020 19:35:18 ENVIRONMENTAL PLANNER by Bogdan Caruso M.D. [id number] f
[2020-04-22 20:11] LABS: Troponin 5 2HR 6.76 ng/L (0-15); Troponin 5 2HR Delta 0.76 ABS# (0-10)
[2020-04-22] MEDS: cefTRIAXone 2,000 MG in sodium chloride 0.9% (plus) 50 ML 100 MG IV (21:01)
[2020-04-22 22:31] LABS: SARS Covid-2 Antigen Negative (Negative)
== END 2020-04-22 22:07 | disposition home or self-care (01) ==
PROVIDERS: Emergency Provider Family Medicine; PCP Nurse Practitioner
DX: J18.9 Pneumonia, unspecified organism (principal); R07.89 Other chest pain; F17.210 Nicotine dependence, cigarettes, uncomplicated
CPT/HCPCS: 12345; 36600; 71045; 71275; 80051; 80053; 82330; 82550; 82805; 83605; 83690; 83880; 84484; 85025; 85378; 85610; 87426; 93005; 96365; 96366; 96367; 96375; 96376; 99282; 99284; J0696; J1170; J3490; Q9967

== ENCOUNTER 2020-04-24 08:32 | Inpatient (IN) | payer SELFPAY ==
[2020-04-24] VITALS (91 sets, daily range): BP systolic 116–155; BP diastolic 65–96; PULSE 75–113; RESP 13–37; TEMP 36.6–37.7; O2SAT 90–99; BMI 33.0
--- NOTE | 2020-04-24 08:39 | XRR_ITS ---
PROCEDURE INFORMATION: Exam: XR Chest, 1 View Exam date and time: 04/24/2020 8:42 AM Age: 55 years old Clinical indication: Chest pain; Additional info: Syncope TECHNIQUE: Imaging protocol: XR of the chest Views: 1 view. COMPARISON: CR XR chest 1V portable [id number] 04/22/2020 6:05 PM FINDINGS: Lungs: The lower left hemithorax is opacified. This has developed since the previous chest x-ray. This is consistent with left lower lobe atelectasis consolidation and pleural effusion. Patchy infiltrate and atelectasis in the right base. Pleural space: A left pleural effusion has developed since the previous chest x-ray. Heart/Mediastinum: Unremarkable. No cardiomegaly. Bones/joints: Unremarkable. XR/XR chest 1V portable [id number] IMPRESSION: Dense opacification of the left base consistent with basilar pneumonia and atelectasis with a new pleural effusion.
--- NOTE | 2020-04-24 09:00 | ED_ITS ---
HPI - SOB/Dyspnea General: Chief Complaint: Shortness of Breath/Dyspnea Stated Complaint: SOB, AWAITING COVID TEST Time Seen by Provider: 04/24/20 08:38 Source: patient and family (spouse) Mode of arrival: ambulatory Limitations: no limitations History of Present Illness: HPI Narrative: Pleasant 55-year-old ill-appearing male presents to the emergency department with increased shortness of breath, abdominal pain and continued shortness of breath. He reports feeling much worse, has declined since his visit here on 04/22/2020. On 04/22/2020, he was seen in the emergency department for sudden onset of chest pain and shortness of breath, oxygen saturation noted to be 89 to 90% on room air. He was diagnosed with pneumonia, placed on amoxicillin and azithromycin. He reports decreased appetite, loss of smell, diarrhea which started yesterday. He denies nausea vomiting. Reports intense left lower chest and left upper abdominal pain. He states is unable to lay flat due to shortness of breath and pain in his chest, upper abdomen. CTA chest, 04/22/2020, bibasilar opacities concerning for pneumonic infiltrates with atelectasis, diffuse interstitial and groundglass opacity in the lungs compatible with mild pneumonitis versus congestive heart failure. He denies fever, denies chills, reports no history of coronary artery disease or PE. He reports previous lung biopsy [address] Bhatt for lung infection. Associated symptoms: Reports abdominal pain, chest congestion, chest pain (LLL) and orthopnea; Deny diaphoresis, extremity pain, fever(s), nausea, palpitations or vomiting Review of Systems General: Reports: 10 or more systems reviewed and unremarkable except in HPI and below Const: Reports: change in appetite, fatigue and malaise; Denies: fever(s), chills or diaphoresis Eyes: Denies: change in vision, blurry vision, eye discomfort or eye redness ENMT: Reports: nasal discharge and nasal congestion; Denies: throat pain, dental pain, disequilibrium, nasal obstruction or post nasal drip Card: Reports: chest pain (LLL), dyspnea on exertion and orthopnea; Denies: palpitations, irregular heart rhythm, edema, swelling of feet/ankles or leg pain with exertion Resp: Reports: dyspnea, productive cough (states not able to descibe sputum), pain on inspiration and chest congestion; Denies: non-productive cough or wheezing GI: Reports: abdominal pain, diarrhea and mucus in stool; Denies: nausea, vomiting, hematemesis, constipation, excessive flatus, hematochezia or melena : Denies: difficulty urinating, dysuria, urinary urgency or urinary incontinence Musc: Reports: muscle weakness; Denies: neck pain, back pain, extremity pain or limited range of motion Skin/Breast: Denies: rash, pruritus, changing lesions or changes in skin color Neuro: Reports: difficulty walking; Denies: headache(s), weakness in extremities, lack of coordination, confusion or behavioral changes Psych: Reports: change in appetite; Denies: anxiety or depression Silas/Lymph: Denies: easy bruising PFSH ED PFSH: Medical History (Updated 04/24/20 @ 15:27 by Mica Guerra MD) Pulmonary alveolar proteinosis Social History Smoking and tobacco status: current every day smoker Physical Exam Const: COMMON NORMALS: patient oriented x3, alert and well nourished GENERAL APPEARANCE: cooperative, in distress (pain) and ill appearing NUTRITIONAL APPEARANCE: obese ORIENTATION/CONSCIOUSNESS: Yes awake, Yes oriented to person, Yes oriented to place and Yes oriented to time HENMT: COMMON NORMALS: normocephalic, atraumatic, Normal external nose present and moist oral mucous membranes HEAD & SCALP: normocephalic and atraumatic FACE & SINUS: normal facial exam, face symmetric and other (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) NOSE: Normal external nose present THROAT: posterior oropharynx normal Eye: COMMON NORMALS: Equal, round and reactive pupils present and EOMs intact bilaterally GENERAL EYE: appearance normal, both eyes and all related structures SCLERA: sclerae normal PUPIL: Yes Equal, round and reactive pupils present Neck/C-Spine: COMMON NORMALS: full ROM and no lymphadenopathy GENERAL: Yes normal visual inspection and Yes trachea midline CERVICAL SPINE: Yes cervical ROM normal Lymph: LYMPHATIC: no lymphadenopathy noted Chest: COMMONS NORMALS: normal inspection of the chest CHEST: Yes abnormal inspection of the chest barrel chest and swelling (Left lower chest wall), Yes localized rib tenderness with anteroposterior compression (left) Location: 9th rib, 10th rib, 11th rib and 12th rib and Yes tenderness (left lower anterior wall) Resp: COMMON NORMALS: normal respiratory effort and clear to auscultation shadi aterally AUSCULTATION: clear to auscultation bilaterally Cardio: COMMON NORMALS: regular rhythm, S1 normal heart sound present, S2 normal heart sound present and Peripheral pulses 2+ throughout RATE: tachycardic RHYTHM: regular rhythm HEART SOUNDS: S1 normal heart sound present and S2 normal heart sound present PERIPHERAL PULSES: Peripheral pulses 2+ throughout GI: COMMON NORMALS: Soft to palpation and No hepatosplenomegaly present INSPECTION: Yes normal to inspection, No abdominal wall ecchymosis, No Abdominal wall edema, No abdominal distension, Yes central obesity and No Fluid wave present PALPATION: Yes Soft to palpation, Yes Tenderness to palpation present (GI) Details: LLQ and LUQ and Yes No hepatosplenomegaly present PERCUSSION: no fluid wave : COMMON NORMALS: Yes no CVA tenderness BLADDER/KIDNEY EXAM: Yes no CVA tenderness Back/Pelvis: COMMON NORMALS: no CVA tenderness, thoracic and lumbar spine normal to inspection, no thoracic nor lumbar tenderness and thoraco-lumbar ROM normal GENERAL BACK: Yes CVA tenderness CVA tenderness: left Extremity: COMMON NORMALS: normal to inspection, full ROM, capillary refill normal and no pedal edema GENERAL: Yes normal exam except as noted Neuro: COMMON NORMALS: patient oriented x3 and no focal motor deficits SENSORIUM/ORIENTATION: Yes alert, Yes oriented to person, Yes oriented to place and Yes oriented to time Psych: COMMON NORMALS: mental status grossly normal, Normal thought process present and cooperative ACTIVITY/MOTOR BEHAVIOR: Yes appropriate eye contact THOUGHT PROCESS: Normal thought process present Skin: COMMON NORMALS: no rashes or lesions noted and turgor normal GENERAL SKIN EXAM: no rashes or lesions noted and turgor normal Course ED course: 55-year-old male patient presents to the emergency room with continued shortness of breath, left side CP and left side abdominal pain, ABGs revealed PO2 56.6, left lower lobe infiltrate worsened on today's exam, transfer of care to Dr. Dennis as patient will need hospitalization. Receive Rocephin in the ED, patient agrees with need for admission. He has failed OP therapy for pneumonia, COVID PTC pending. Vital Signs: Vital signs: Vital Signs Temperature 98.4 F 04/24/20 17:00 Pulse Rate 101 H 04/24/20 17:00 Respiratory Rate 29 H 04/24/20 17:00 Blood Pressure 141/67 04/24/20 17:00 Pulse Oximetry 95 04/24/20 17:28 MDM - SOB/Dyspnea Lab Data: Labs: Lab Results 04/24/20 04/24/20 04/24/20 Range/Units 09:17 09:24 09:32 WBC 16.8 H (4.0-10.0) 10^3/ uL RBC 4.82 (4.1-5.3) 10^6/u L Hgb 14.6 (11.7-16.6) g/dL Hct 43.1 (42.0-52.0) % MCV 89.4 (80-94) fL MCH 30.3 (28.0-34.0) pg MCHC 33.9 (30.0-36.0) g/dL RDW 13.6 (12.1-15.1) % Plt Count 234 (130-400) 10^3/c mm MPV 11.9 H (7.4-10.4) fL Neut % (Auto) 80.9 % Lymph % (Auto) 8.2 % [place] % (Auto) 9.0 % Eos % (Auto) 1.1 % Baso % (Auto) 0.3 % Neut # (Auto) 13.60 H (1.8-7.7) 10^3/u L Lymph # (Auto) 1.4 (0.8-4.8) 10^3/u L [place] # (Auto) 1.5 H (0.2-0.9) 10^3/u L Eos # (Auto) 0.2 (0.0-0.8) 10^3/u L Baso # (Auto) 0.1 (0.0-0.1) 10^3/u L Nucleated RBC % (a uto) 0 % Nucleated RBCs # 0.0 /100WBC ESR (0-10) mm/hr PT (12.1-14.9) SECO NDS INR (0.8-1.2) APTT (23.9-36.7) SECO NDS D-Dimer (0-0.59) ug/mIFE U Specimen Type Arterial Sample Site Radial, left ABG pH 7.44 (7.35-7.45) ABG pCO2 33.3 L (35-45) mmHg ABG pO2 56.6 L (80.0-100.0) mmH g ABG HCO3 22.5 (22-26) mmol/L ABG O2 Saturation 91.8 ABG Base Excess -0.9 (-2.0-2.0) mmol/ L Mason Test Pos A-a O2 Gradient 6.7 (5-10) mmHg Hematocrit 46.8 (42-52) % Hgb O2 Saturation 89.1 L (95-100) % Carboxyhemoglobin 2.1 (0.4-20.1) %THgb Methemoglobin 0.9 (0.4-1.5) % Total Hemoglobin 15.3 (14-18) g/dL Sodium 134.0 (131-143) mmol/L Potassium 3.8 (3.5-5.0) mmol/L Glucose 129.0 H (70-115) mg/dL Ionized Calcium 1.2 (1.1-1.4) mmol/L O2 Delivery Device Room air FiO2 21.0 % Technical Account Manager ID Cak Chloride (98-107) mmol/L Carbon Dioxide (22-29) mmol/L Anion Gap (5-19) BUN (6-20) mg/dL Creatinine (0.7-1.2) mg/dL GFR Calculation (90-130) mL/min Calculated Osmolal ity (285-295) mOsm/k g Lactate (0.5-2.2) mmol/L Calcium (8.5-10.5) mg/dL Total Bilirubin (0.15-1.2) mg/dL AST (0-40) U/L ALT (0-41) U/L Alkaline Phosphata se (40-130) IU/L Troponin T Baselin e (0-15) ng/L Troponin T 120 Min [place] (0-15) ng/L Delta Troponin T (0-10) ABS# C-Reactive Protein (0.0-4.9) mg/L Total Protein (6.6-8.7) g/dL Albumin (3.5-5.2) g/dL Globulin (1.3-4.6) g/dL Procalcitonin (0-0.5) ng/mL Urine Color (Yellow) Urine Appearance (CLEAR) Urine pH (5-7) Ur Specific Gravit y (1.005-1.030) Urine Protein (Negative) Urine Glucose (UA) (Normal) Urine Ketones (Negative) Urine Blood (Negative) Urine Nitrate (Negative) Urine Bilirubin (Negative) Urine Urobilinogen (Negative) mg/dL Ur Leukocyte Beryl ase (Negative) Rheumatoid Factor (0-14) IU/mL Influenza Type A A g Negative (Negative) Influenza Type B A g Negative (Negative) 04/24/20 04/24/20 04/24/20 Range/Units 09:32 09:32 09:32 WBC (4.0-10.0) 10^3/ uL RBC (4.1-5.3) 10^6/u L Hgb (11.7-16.6) g/dL Hct (42.0-52.0) % MCV (80-94) fL MCH (28.0-34.0) pg MCHC (30.0-36.0) g/dL RDW (12.1-15.1) % Plt Count (130-400) 10^3/c mm MPV (7.4-10.4) fL Neut % (Auto) % Lymph % (Auto) % [place] % (Auto) % Eos % (Auto) % Baso % (Auto) % Neut # (Auto) (1.8-7.7) 10^3/u L Lymph # (Auto) (0.8-4.8) 10^3/u L [place] # (Auto) (0.2-0.9) 10^3/u L Eos # (Auto) (0.0-0.8) 10^3/u L Baso # (Auto) (0.0-0.1) 10^3/u L Nucleated RBC % (a uto) % Nucleated RBCs # /100WBC ESR (0-10) mm/hr PT 14.90 (12.1-14.9) SECO NDS INR 1.14 (0.8-1.2) APTT 41.7 H (23.9-36.7) SECO NDS D-Dimer 1.54 H (0-0.59) ug/mIFE U Specimen Type Sample Site ABG pH (7.35-7.45) ABG pCO2 (35-45) mmHg ABG pO2 (80.0-100.0) mmH g ABG HCO3 (22-26) mmol/L ABG O2 Saturation ABG Base Excess (-2.0-2.0) mmol/ L Mason Test A-a O2 Gradient (5-10) mmHg Hematocrit (42-52) % Hgb O2 Saturation (95-100) % Carboxyhemoglobin (0.4-20.1) %THgb Methemoglobin (0.4-1.5) % Total Hemoglobin (14-18) g/dL Sodium 132 L (131-143) mmol/L Potassium 4.1 (3.5-5.0) mmol/L Glucose 128 H (70-115) mg/dL Ionized Calcium (1.1-1.4) mmol/L O2 Delivery Device FiO2 % Technical Account Manager ID Chloride 97 L (98-107) mmol/L Carbon Dioxide 20 L (22-29) mmol/L Anion Gap 19.1 H (5-19) BUN 10 (6-20) mg/dL Creatinine 0.8 (0.7-1.2) mg/dL GFR Calculation 100.7 (90-130) mL/min Calculated Osmolal ity 275 L (285-295) mOsm/k g Lactate 0.8 (0.5-2.2) mmol/L Calcium 9.4 (8.5-10.5) mg/dL Total Bilirubin 0.4 (0.15-1.2) mg/dL AST 15 (0-40) U/L ALT 19 (0-41) U/L Alkaline Phosphata se 72 (40-130) IU/L Troponin T Baselin e (0-15) ng/L Troponin T 120 Min [place] (0-15) ng/L Delta Troponin T (0-10) ABS# C-Reactive Protein 262.1 H (0.0-4.9) mg/L Total Protein 7.0 (6.6-8.7) g/dL Albumin 4.2 (3.5-5.2) g/dL Globulin 2.8 (1.3-4.6) g/dL Procalcitonin 0.86 H (0-0.5) ng/mL Urine Color (Yellow) Urine Appearance (CLEAR) Urine pH (5-7) Ur Specific Gravit y (1.005-1.030) Urine Protein (Negative) Urine Glucose (UA) (Normal) Urine Ketones (Negative) Urine Blood (Negative) Urine Nitrate (Negative) Urine Bilirubin (Negative) Urine Urobilinogen (Negative) mg/dL Ur Leukocyte Beryl ase (Negative) Rheumatoid Factor (0-14) IU/mL Influenza Type A A g (Negative) Influenza Type B A g (Negative) 04/24/20 04/24/20 04/24/20 Range/Units 09:32 09:32 09:32 WBC (4.0-10.0) 10^3/ uL RBC (4.1-5.3) 10^6/u L Hgb (11.7-16.6) g/dL Hct (42.0-52.0) % MCV (80-94) fL MCH (28.0-34.0) pg MCHC (30.0-36.0) g/dL RDW (12.1-15.1) % Plt Count (130-400) 10^3/c mm MPV (7.4-10.4) fL Neut % (Auto) % Lymph % (Auto) % [place] % (Auto) % Eos % (Auto) % Baso % (Auto) % Neut # (Auto) (1.8-7.7) 10^3/u L Lymph # (Auto) (0.8-4.8) 10^3/u L [place] # (Auto) (0.2-0.9) 10^3/u L Eos # (Auto) (0.0-0.8) 10^3/u L Baso # (Auto) (0.0-0.1) 10^3/u L Nucleated RBC % (a uto) % Nucleated RBCs # /100WBC ESR 77 H (0-10) mm/hr PT (12.1-14.9) SECO NDS INR (0.8-1.2) APTT (23.9-36.7) SECO NDS D-Dimer (0-0.59) ug/mIFE U Specimen Type Sample Site ABG pH (7.35-7.45) ABG pCO2 (35-45) mmHg ABG pO2 (80.0-100.0) mmH g ABG HCO3 (22-26) mmol/L ABG O2 Saturation ABG Base Excess (-2.0-2.0) mmol/ L Mason Test A-a O2 Gradient (5-10) mmHg Hematocrit (42-52) % Hgb O2 Saturation (95-100) % Carboxyhemoglobin (0.4-20.1) %THgb Methemoglobin (0.4-1.5) % Total Hemoglobin (14-18) g/dL Sodium (131-143) mmol/L Potassium (3.5-5.0) mmol/L Glucose (70-115) mg/dL Ionized Calcium (1.1-1.4) mmol/L O2 Delivery Device FiO2 % Technical Account Manager ID Chloride (98-107) mmol/L Carbon Dioxide (22-29) mmol/L Anion Gap (5-19) BUN (6-20) mg/dL Creatinine (0.7-1.2) mg/dL GFR Calculation (90-130) mL/min Calculated Osmolal ity (285-295) mOsm/k g Lactate (0.5-2.2) mmol/L Calcium (8.5-10.5) mg/dL Total Bilirubin (0.15-1.2) mg/dL AST (0-40) U/L ALT (0-41) U/L Alkaline Phosphata se (40-130) IU/L Troponin T Baselin e 7 (0-15) ng/L Troponin T 120 Min [place] (0-15) ng/L Delta Troponin T (0-10) ABS# C-Reactive Protein (0.0-4.9) mg/L Total Protein (6.6-8.7) g/dL Albumin (3.5-5.2) g/dL Globulin (1.3-4.6) g/dL Procalcitonin (0-0.5) ng/mL Urine Color (Yellow) Urine Appearance (CLEAR) Urine pH (5-7) Ur Specific Gravit y (1.005-1.030) Urine Protein (Negative) Urine Glucose (UA) (Normal) Urine Ketones (Negative) Urine Blood (Negative) Urine Nitrate (Negative) Urine Bilirubin (Negative) Urine Urobilinogen (Negative) mg/dL Ur Leukocyte Beryl ase (Negative) Rheumatoid Factor 46.0 H (0-14) IU/mL Influenza Type A A g (Negative) Influenza Type B A g (Negative) 04/24/20 04/24/20 Range/Units 11:18 13:14 WBC (4.0-10.0) 10^3/ uL RBC (4.1-5.3) 10^6/u L Hgb (11.7-16.6) g/dL Hct (42.0-52.0) % MCV (80-94) fL MCH (28.0-34.0) pg MCHC (30.0-36.0) g/dL RDW (12.1-15.1) % Plt Count (130-400) 10^3/c mm MPV (7.4-10.4) fL Neut % (Auto) % Lymph % (Auto) % [place] % (Auto) % Eos % (Auto) % Baso % (Auto) % Neut # (Auto) (1.8-7.7) 10^3/u L Lymph # (Auto) (0.8-4.8) 10^3/u L [place] # (Auto) (0.2-0.9) 10^3/u L Eos # (Auto) (0.0-0.8) 10^3/u L Baso # (Auto) (0.0-0.1) 10^3/u L Nucleated RBC % (a uto) % Nucleated RBCs # /100WBC ESR (0-10) mm/hr PT (12.1-14.9) SECO NDS INR (0.8-1.2) APTT (23.9-36.7) SECO NDS D-Dimer (0-0.59) ug/mIFE U Specimen Type Sample Site ABG pH (7.35-7.45) ABG pCO2 (35-45) mmHg ABG pO2 (80.0-100.0) mmH g ABG HCO3 (22-26) mmol/L ABG O2 Saturation ABG Base Excess (-2.0-2.0) mmol/ L Mason Test A-a O2 Gradient (5-10) mmHg Hematocrit (42-52) % Hgb O2 Saturation (95-100) % Carboxyhemoglobin (0.4-20.1) %THgb Methemoglobin (0.4-1.5) % Total Hemoglobin (14-18) g/dL Sodium (131-143) mmol/L Potassium (3.5-5.0) mmol/L Glucose (70-115) mg/dL Ionized Calcium (1.1-1.4) mmol/L O2 Delivery Device FiO2 % Technical Account Manager ID Chloride (98-107) mmol/L Carbon Dioxide (22-29) mmol/L Anion Gap (5-19) BUN (6-20) mg/dL Creatinine (0.7-1.2) mg/dL GFR Calculation (90-130) mL/min Calculated Osmolal ity (285-295) mOsm/k g Lactate (0.5-2.2) mmol/L Calcium (8.5-10.5) mg/dL Total Bilirubin (0.15-1.2) mg/dL AST (0-40) U/L ALT (0-41) U/L Alkaline Phosphata se (40-130) IU/L Troponin T Baselin e (0-15) ng/L Troponin T 120 Min [place] 6.86 (0-15) ng/L Delta Troponin T -0.14 L (0-10) ABS# C-Reactive Protein (0.0-4.9) mg/L Total Protein (6.6-8.7) g/dL Albumin (3.5-5.2) g/dL Globulin (1.3-4.6) g/dL Procalcitonin (0-0.5) ng/mL Urine Color Yellow (Yellow) Urine Appearance Clear (CLEAR) Urine pH 5 (5-7) Ur Specific Gravit y 1.020 (1.005-1.030) Urine Protein Neg (Negative) Urine Glucose (UA) Norm (Normal) Urine Ketones Negative (Negative) Urine Blood Neg (Negative) Urine Nitrate Negative (Negative) Urine Bilirubin Neg (Negative) Urine Urobilinogen Norm (Negative) mg/dL Ur Leukocyte Beryl ase Negative (Negative) Rheumatoid Factor (0-14) IU/mL Influenza Type A A g (Negative) Influenza Type B A g (Negative) Imaging Data^: CT Chest: Radiologist's impression: [address] [address] [address] Scan Report Signed Patient: Hieu Galvan Unit #: [id number] : 1965 Age/Sex: 55 / M ADM Date: 04/24/20 Loc: ER Room/Bed: Attending Dr: Ordering Provider/Ordering MD: Sakina Juan Date of Service: 04/24/20 Procedure(s): CT angio chest w abd pel w con Accession Number(s): [id number] Report Number: [id number] PROCEDURE INFORMATION: Exam: CT Angiography Chest With Contrast Exam date and time: 04/24/2020 11:57 AM Age: 55 years old Clinical indication: Abdominal pain; Generalized; Chest pain; Type not specified; Additional info: Left lower lobe effusion/pneumonia TECHNIQUE: Imaging protocol: Computed tomographic angiography of the chest with intravenous contrast. 3D rendering (Not supervised by radiologist): MIP and/or 3D reconstructed images were created by the technologist. Radiation optimization: All CT scans at this facility use at least one of these dose optimization techniques: automated exposure control; mA and/or kV adjustment per patient size (includes targeted exams where dose is matched to clinical indication); or iterative reconstruction. Contrast material: OMNIPAQUE 350; Contrast volume: 95 ml; Contrast route: INTRAVENOUS (IV); COMPARISON: CT angio chest PE protcl [id number] 04/22/2020 6:50 PM RADIATION DOSE METRICS: Total DLP (mGy-cm): 1694.41 FINDINGS: Pulmonary arteries: Normal. No pulmonary emboli. Aorta: Unremarkable. No aortic aneurysm. No aortic dissection. Lungs: There is prominent left lower lobe and left lingular atelectasis with hazy infiltration of the left upper lobe. This has significantly worsened since the previous scan from 04/22/2020. There also worsening areas of atelectasis in the right middle and lower lobes with scattered interstitial infiltrate. Pleural space: There is a left pleural effusion which is loculated in the left base and in the fissures. There is no pneumothorax. Heart: The heart is not significantly enlarged. There is a small pericardial effusion. The coronary arteries are calcified. Lymph nodes: There are multiple mildly enlarged lymph nodes in the mediastinum which may be reactive in nature. Bones/joints: Unremarkable. No acute fracture. Soft tissues: Unremarkable. IMPRESSION: 1. No evidence of pulmonary embolus or aortic dissection. 2. Worsening atelectasis of the left lower lobe and lingula with increasing interstitial infiltrates in the upper lobe. 3. Worsening atelectasis in the right middle lobe with scattered right lung interstitial infiltrates. 4. Increasing loculated left pleural effusion. 5. Small pericardial effusion.. PROCEDURE INFORMATION: Exam: CT Abdomen And Pelvis With Contrast Exam date and time: 04/24/2020 11:57 AM Age: 55 years old Clinical indication: Abdominal pain; Generalized; Chest pain; Type not specified; Additional info: Left lower lobe effusion/pneumonia TECHNIQUE: Imaging protocol: Computed tomography of the abdomen and pelvis with intravenous contrast. Radiation optimization: All CT scans at this facility use at least one of these dose optimization techniques: automated exposure control; mA and/or kV adjustment per patient size (includes targeted exams where dose is matched to clinical indication); or iterative reconstruction. Contrast material: OMNIPAQUE 350; Contrast volume: 95 ml; Contrast route: INTRAVENOUS (IV); COMPARISON: CT angio chest PE protcl [id number] 04/22/2020 6:50 PM RADIATION DOSE METRICS: Total DLP (mGy-cm): 1694.41 FINDINGS: Liver: Normal. No mass. Gallbladder and bile ducts: Normal. No calcified stones. No ductal dilation. Pancreas: Normal. No ductal dilation. Spleen: Normal. No splenomegaly. Adrenal glands: Normal. No mass. Kidneys and ureters: Tiny benign appearing cysts are present in both kidneys. There is no hydronephrosis or renal calcification. Stomach and bowel: There is sigmoid diverticulosis but no evidence of acute diverticulitis. There is no bowel obstruction or dilatation. Appendix: No evidence of appendicitis. Intraperitoneal space: Unremarkable. No free air. No significant fluid collection. Vasculature: The aorta is calcified but there is no aneurysm. Lymph nodes: Unremarkable. No enlarged lymph nodes. Urinary bladder: Unremarkable as visualized. Reproductive: Unremarkable as visualized. Bones/joints: Unremarkable. No acute fracture. Soft tissues: Unremarkable. CT/CT angio chest w abd pel w con IMPRESSION: 1. No acute abnormalities are seen in the abdomen and pelvis. 2. Sigmoid diverticulosis. COMMENTS: Consistent with the [place]'s Incidental Findings Committee white paper (J Am Melia Radiol 2018): Any incidental renal lesion less than 1 cm or classified as too small to characterize, or any incidental cystic renal lesion characterized as simple-appearing, is likely benign. No follow-up imaging is recommended for these lesions per consensus recommendations based on imaging criteria. Radiation Dose CTDIVOL = (mGy): DLP = 1694.41 1694.41 (mGy-cm) Dictated By: Jomar Quinn Signed By: Jomar Quinn Signed Date/Time: 04/24/20 1233 DD/ 1231 EKG Data^: EKG 1: EKG Interpretation Date: 04/24/20 EKG interpretation time: 09:22 Prior EKG tracings: available for review Other EKG Comments: Sinus tachycardia, right axis deviation, abnormal ECG, ventricular rate 104, unchanged from previous EKG 04/22/2020. Discharge Plan Discharge Patient Disposition: Admitted As Inpatient Admit Provider: Mica Guerra Coding Level of Care Code ED Flight Attendant for Chg Fwd Exam Comprehensive
--- NOTE | 2020-04-24 09:00 | ECG_ITS ---
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: : 1965 Requested By: Sakina Drew Order Number: [id number] Reading MD: DEBORAH MCKEON Measurements Intervals [place] Rate: 104 P: 24 [place]: 149 QRS: 103 QRSD: 146 T: 16 QT: 354 QTc: 468 Interpretive Statements SINUS TACHYCARDIA RIGHT AXIS DEVIATION [QRS AXIS > 100] RIGHT BUNDLE BRANCH BLOCK [120+ ms QRS DURATION, UPRIGHT V1, 40+ ms S IN I/aVL/V4/V5/V6] Compared to ECG 04/22/2020 19:16:46 Right-axis deviation now present Electronically Signed On 04-24-2020 15:47:19 PARACHUTE OFFICER by DEBORAH MCKEON [id number]
[2020-04-24 09:28] LABS: ABG PCO2 33.3 mmHg (35-45); ABG PH Result 7.44 (7.35-7.45); Alveolar-Arterial Oxygen Gradi 6.7 mmHg (5-10); Arterial Blood Gas Hematocrit 46.8 % (42-52); Base Excess ABG -0.9 mmol/L (-2.0-2.0); Blood Gas Allen Test Pos; Blood Gas Operator Identificat CAK; Blood Gas Sample Site Radial, left; Blood Gas Sample Type Arterial; Carboxyhemoglobin 2.1 %THgb (0.4-20.1); HCO3 ABG 22.5 mmol/L (22-26); HGB O2 Sat 89.1 % (95-100); Ionized Calcium Level - ABG 1.2 mmol/L (1.1-1.4); Methemoglobin 0.9 % (0.4-1.5); Oxygen Device ROOM AIR; Oxygen Saturation ABG 91.8; PO2 ABG 56.6 mmHg (80.0-100.0); Potassium Level - ABG 3.8 mmol/L (3.5-5.0); Total Hemoglobin 15.3 g/dL (14-18)
[2020-04-24] MEDS: ondansetron 2 mg/ML SDV 2 mL 4 MG IVP (09:43)
[2020-04-24] MEDS: HYDROmorphone 1 mg/mL INJ 1 mL 0.5 MG IVP ×2 (09:43→10:54)
[2020-04-24] MEDS: sodium chloride 0.9% 500 ML 999 ML IV (09:44)
[2020-04-24 10:08] LABS: Basophils # 0.1 10^3/uL (0.0-0.1); Basophils % 0.3 %; Eosinophils # 0.2 10^3/uL (0.0-0.8); Eosinophils % 1.1 %; Hematocrit 43.1 % (42.0-52.0); Hemoglobin 14.6 g/dL (11.7-16.6); Lymphocytes # 1.4 10^3/uL (0.8-4.8); Lymphocytes % 8.2 %; Mean Corpuscular HGB Conc 33.9 g/dL (30.0-36.0); Mean Corpuscular Hemoglobin 30.3 pg (28.0-34.0); Mean Corpuscular Volume 89.4 fL (80-94); Mean Platelet Volume 11.9 fL (7.4-10.4); Monocytes # 1.5 10^3/uL (0.2-0.9); Neutrophils % 80.9 %; Nucleated Red Blood Cells % 0 %; Platelet Count 234 10^3/cmm (130-400); Red Blood Count 4.82 10^6/uL (4.1-5.3); Red Cell Distribution Width 13.6 % (12.1-15.1); White Blood Count 16.8 10^3/uL (4.0-10.0)
[2020-04-24 10:26] LABS: Lactate (Lactic Acid level) 0.8 mmol/L (0.5-2.2)
[2020-04-24 10:28] LABS: Troponin(5th) Baseline 7 ng/L (0-15)
[2020-04-24 10:43] LABS: Influenza A by IFA Negative (Negative); Influenza B by IFA Negative (Negative)
[2020-04-24 10:44] LABS: INR 1.14 (0.8-1.2)
[2020-04-24 10:45] LABS: Partial Thromboplastin Time 41.7 SECONDS (23.9-36.7)
[2020-04-24 10:47] LABS: Alanine Aminotransferase 19 U/L (0-41); Albumin Level 4.2 g/dL (3.5-5.2); Alkaline Phosphatase 72 IU/L (40-130); Anion Gap 19.1 (5-19); Aspartate Amino Transferase 15 U/L (0-40); Blood Urea Nitrogen 10 mg/dL (6-20); C Reactive Protein 262.1 mg/L (0.0-4.9); Calcium 9.4 mg/dL (8.5-10.5); Carbon Dioxide 20 mmol/L (22-29); Chloride 97 mmol/L (98-107); D Dimer 1.54 ug/mIFEU (0-0.59); Globulin 2.8 g/dL (1.3-4.6); Glomerular Filtration Rate 100.7 mL/min (90-130); Glucose 128 mg/dL (65-115); Osmolality Calculated 275 mOsm/kg (285-295); Potassium 4.1 mmol/L (3.5-5.1); Sodium 132 mmol/L (136-145); Total Bilirubin 0.4 mg/dL (0.15-1.2)
[2020-04-24 10:51] LABS: Procalcitonin 0.86 ng/mL (0-0.5)
[2020-04-24] MEDS: acetaminophen 500 mg Tablet 1000 MG PO (10:53)
--- NOTE | 2020-04-24 11:00 | ECG_ITS ---
[facility] Test Date: 2020-04-24 Pat Name: Hieu Galvan Department: Room: Gender: Male Research Fellow: : 1965 Requested By: Sakina Drew Order Number: [id number] Kingsley MD: DEBORAH MCKEON Measurements Intervals [place] Rate: 90 P: 30 NE: 161 QRS: 93 QRSD: 146 T: 18 QT: 374 QTc: 458 Interpretive Statements SINUS RHYTHM RIGHT BUNDLE BRANCH BLOCK [120+ ms QRS DURATION, UPRIGHT V1, 40+ ms S IN I/aVL/V4/V5/V6] Compared to ECG 04/24/2020 09:20:32 Sinus tachycardia no longer present Right-axis deviation no longer present Electronically Signed On 04-24-2020 15:47:52 SEQUINS SPOOLER by DEBORAH MCKEON [id number]
[2020-04-24 11:09] LABS: Erythrocyte Sedimentation Rate 77 mm/hr (0-10)
--- NOTE | 2020-04-24 11:21 | CTR_ITS ---
PROCEDURE INFORMATION: Exam: CT Angiography Chest With Contrast Exam date and time: 04/24/2020 11:57 AM Age: 55 years old Clinical indication: Abdominal pain; Generalized; Chest pain; Type not specified; Additional info: Left lower lobe effusion/pneumonia TECHNIQUE: Imaging protocol: Computed tomographic angiography of the chest with intravenous contrast. 3D rendering (Not supervised by radiologist): MIP and/or 3D reconstructed images were created by the technologist. Radiation optimization: All CT scans at this facility use at least one of these dose optimization techniques: automated exposure control; mA and/or kV adjustment per patient size (includes targeted exams where dose is matched to clinical indication); or iterative reconstruction. Contrast material: OMNIPAQUE 350; Contrast volume: 95 ml; Contrast route: INTRAVENOUS (IV); COMPARISON: CT angio chest PE protcl [id number] 04/22/2020 6:50 PM RADIATION DOSE METRICS: Total DLP (mGy-cm): 1694.41 FINDINGS: Pulmonary arteries: Normal. No pulmonary emboli. Aorta: Unremarkable. No aortic aneurysm. No aortic dissection. Lungs: There is prominent left lower lobe and left lingular atelectasis with hazy infiltration of the left upper lobe. This has significantly worsened since the previous scan from 04/22/2020. There also worsening areas of atelectasis in the right middle and lower lobes with scattered interstitial infiltrate. Pleural space: There is a left pleural effusion which is loculated in the left base and in the fissures. There is no pneumothorax. Heart: The heart is not significantly enlarged. There is a small pericardial effusion. The coronary arteries are calcified. Lymph nodes: There are multiple mildly enlarged lymph nodes in the mediastinum which may be reactive in nature. Bones/joints: Unremarkable. No acute fracture. Soft tissues: Unremarkable. IMPRESSION: 1. No evidence of pulmonary embolus or aortic dissection. 2. Worsening atelectasis of the left lower lobe and lingula with increasing interstitial infiltrates in the upper lobe. 3. Worsening atelectasis in the right middle lobe with scattered right lung interstitial infiltrates. 4. Increasing loculated left pleural effusion. 5. Small pericardial effusion.. PROCEDURE INFORMATION: Exam: CT Abdomen And Pelvis With Contrast Exam date and time: 04/24/2020 11:57 AM Age: 55 years old Clinical indication: Abdominal pain; Generalized; Chest pain; Type not specified; Additional info: Left lower lobe effusion/pneumonia TECHNIQUE: Imaging protocol: Computed tomography of the abdomen and pelvis with intravenous contrast. Radiation optimization: All CT scans at this facility use at least one of these dose optimization techniques: automated exposure control; mA and/or kV adjustment per patient size (includes targeted exams where dose is matched to clinical indication); or iterative reconstruction. Contrast material: OMNIPAQUE 350; Contrast volume: 95 ml; Contrast route: INTRAVENOUS (IV); COMPARISON: CT angio chest PE protcl [id number] 04/22/2020 6:50 PM RADIATION DOSE METRICS: Total DLP (mGy-cm): 1694.41 FINDINGS: Liver: Normal. No mass. Gallbladder and bile ducts: Normal. No calcified stones. No ductal dilation. Pancreas: Normal. No ductal dilation. Spleen: Normal. No splenomegaly. Adrenal glands: Normal. No mass. Kidneys and ureters: Tiny benign appearing cysts are present in both kidneys. There is no hydronephrosis or renal calcification. Stomach and bowel: There is sigmoid diverticulosis but no evidence of acute diverticulitis. There is no bowel obstruction or dilatation. Appendix: No evidence of appendicitis. Intraperitoneal space: Unremarkable. No free air. No significant fluid collection. Vasculature: The aorta is calcified but there is no aneurysm. Lymph nodes: Unremarkable. No enlarged lymph nodes. Urinary bladder: Unremarkable as visualized. Reproductive: Unremarkable as visualized. Bones/joints: Unremarkable. No acute fracture. Soft tissues: Unremarkable. CT/CT angio chest w abd pel w con IMPRESSION: 1. No acute abnormalities are seen in the abdomen and pelvis. 2. Sigmoid diverticulosis. COMMENTS: Consistent with the [employer]'s Incidental Findings Committee white paper (J Am Melia Radiol 2018): Any incidental renal lesion less than 1 cm or classified as too small to characterize, or any incidental cystic renal lesion characterized as simple-appearing, is likely benign. No follow-up imaging is recommended for these lesions per consensus recommendations based on imaging criteria. Radiation Dose CTDIVOL = (mGy): DLP = 1694.41~1694.41 (mGy-cm)
[2020-04-24 11:59] LABS: Troponin 5 2HR 6.86 ng/L (0-15)
[2020-04-24] MEDS: iohexol 350 mg/mL 100 mL Btl IV (11:59)
--- NOTE | 2020-04-24 12:17 | PC.NURSE ---
Has not given a urine.
[2020-04-24 12:19] LABS: Troponin 5 2HR Delta -0.14 ABS# (0-10)
[2020-04-24] MEDS: cefTRIAXone 1,000 MG in sodium chloride 0.9% (plus) 50 ML 100 MG IV (13:07)
[2020-04-24 13:40] LABS: Add Urine Microscopic? NO
[2020-04-24 13:44] LABS: Bilirubin Urine Neg (Negative); Blood Urine Neg (Negative); Glucose Urine UA Norm (Normal); Ketones Urine Negative (Negative); Nitrate Urine Negative (Negative); Protein Urine Neg (Negative); Urine Appearance Clear (CLEAR); Urine Color Yellow (Yellow); pH Urine 5 (5-7)
[2020-04-24 13:45] LABS: Leukocyte Esterase Urine Negative (Negative); Urobilinogen Urine Norm (Negative)
--- NOTE | 2020-04-24 15:00 | ECG_ITS ---
[facility] Test Date: 2020-04-24 Pat Name: Hieu Galvan Department: Room: ICU04 Gender: Male Global Mobility Specialist: : 1965 Requested By: Sakina Drew Order Number: [id number] Kingsley MD: Dania Camacho M.D. Measurements Intervals [place] Rate: 97 P: 29 KS: 164 QRS: 102 QRSD: 144 T: 15 QT: 358 QTc: 455 Interpretive Statements SINUS RHYTHM RIGHT AXIS DEVIATION [QRS AXIS > 100] RIGHT BUNDLE BRANCH BLOCK [120+ ms QRS DURATION, UPRIGHT V1, 40+ ms S IN I/aVL/V4/V5/V6] Compared to ECG 04/24/2020 11:31:01 Right-axis deviation now present Electronically Signed On 04-26-2020 17:18:58 DIGITAL COMMUNITY MANAGER by Dania Camacho M.D. [email or web address]
--- NOTE | 2020-04-24 15:18 | P.HP_ITS ---
Providers/Chief Complaint Primary Care Provider: Kassie Flannery APN Chief Complaint: SOB, AWAITING COVID TEST History of Present Illness Hieu Galvan is a 55 year old male This is a 55-year-old male who presented to the ER with complaints of shortness of breath abdominal pain and chest pain. The patient was seen in the ER [facility] 4. At that visit he was noted to be hypoxic. He was diagnosed with pneumonia and discharged with amoxicillin and azithromycin. Since his discharge he reports increased shortness of breath and discomfort. The patient was noted to have elevated D-dimers both visit. He was also hypoxic today. The patient had a CTA which showed a loculated pleural effusion. Patient also has suspected pericardial effusion. He has no known previous autoimmune disease. The patient does have a history of gout. In the ED he has been given IV pain medications. Patient also has a history of interstitial lung disease. Details regarding that are not clear. It is also reported having a previous lung biopsy in 2008 for lung infection. Pertinent labs: WBC 16.8 ESR 77 ABG pH 7.44 Covid PCR pending CTA chest IMPRESSION: 1. No evidence of pulmonary embolus or aortic dissection. 2. Worsening atelectasis of the left lower lobe and lingula with increasing interstitial infiltrates in the upper lobe. 3. Worsening atelectasis in the right middle lobe with scattered right lung interstitial infiltrates. 4. Increasing loculated left pleural effusion. 5. Small pericardial effusion.. Review of Systems General: Reports: 10 or more systems reviewed and unremarkable except in HPI and below Const: Reports: body aches; Denies: fever(s) or chills Eyes: Denies: change in vision or blurry vision Card: Reports: chest pain Resp: Reports: dyspnea; Denies: stridor GI: Reports: abdominal pain Musc: Denies: neck pain or back pain Skin/Breast: Denies: rash or pruritus Neuro: Denies: headache(s) or numbness in extremities Medications/Allergies Home Medications Medication Instructions Recorded Confirmed Last Taken Type allopurinol 100 mg PO DAILY@05 07/12/19 04/24/20 04/22/20 History colchicine [Colcrys] 0.6 mg PO Q1H PRN 04/22/20 04/24/20 Unknown History amoxicillin-pot clavulanate 1 tab PO BID #14 tab 04/30/20 Unknown Rx [Augmentin] oxycodone-acetaminophen [Percocet] 1 tab PO Q6H #14 tab 04/30/20 Unknown Rx Allergies Allergy/AdvReac Type Severity Reaction Status Date / Time codeine Allergy ADR-Nausea Verified 07/12/19 01:50 PFSH Acute PFSH: Medical History (Updated 05/01/20 @ 00:00 by ) Pulmonary alveolar proteinosis Surgical History (Updated 04/25/20 @ 18:27 by Dionte Youngblood MD) History of lung biopsy Social History Smoking and tobacco status: current every day smoker Vitals/I&O/Wt Last Vital Signs Temp 98.6 F 04/24/20 11:00 Pulse 88 04/24/20 14:00 Resp 20 H 04/24/20 14:00 BP 119/83 04/24/20 14:00 Pulse Ox 95 04/24/20 14:00 Weight last 48 hrs Weight 230 lb Physical Exam Const: COMMON NORMALS: average body habitus and patient oriented x3 GENERAL APPEARANCE: cooperative Chest: COMMONS NORMALS: normal inspection of the chest Resp: COMMON NORMALS: normal respiratory effort and No retractions AUSCULTATION: no wheezes and lung sounds not diminished Cardio: RATE: regular rate RHYTHM: regular rhythm GI: PALPATION: Yes Soft to palpation and No Tenderness to palpation present (GI) Extremity: GENERAL: Yes normal exam except as noted Neuro: COMMON NORMALS: patient oriented x3 and CN's II-XII intact bilaterally Psych: COMMON NORMALS: mental status grossly normal Data : 04/30/20 03:44 04/30/20 03:44 Micro: Microbiology 04/24/20 11:18 Blood Culture - Preliminary Blood SPECIMEN COLLECTED 04/24/20 09:32 Blood Culture - Preliminary Blood SPECIMEN COLLECTED A&P Assessment and plan (1) Pleural effusion: Status: Acute (2) Empyema: Status: Acute (3) Pericardial effusion: Status: Acute (4) Gout: Status: Acute (5) Pneumonia: Status: Inactive Qualifiers: Laterality: bilateral Lung location: lower lobe of lung Pneumonia type: due to unspecified organism Qualified Code(s): J18.9 - Pneumonia, unspecified organism (6) Chest pain: Status: Inactive Qualifiers: Chest pain type: other chest pain Qualified Code(s): R07.89 - Other chest pain Additional A&P Information This is a 55-year-old male with history of recent diagnosis of pneumonia, interstitial lung disease, gout who presented with chest pain, abdominal pain and hypoxemia. He was diagnosed with pericardial and pleural effusion. Suspected loculated in left lung. He has very high inflammatory markers. He does not have a previous diagnosis of a systemic autoimmune disease. The patient is being admitted to the ICU for pneumonia. He does have a Covid test pending. 1. Admit to ICU continue oxygen treatments 2. RT and pulmonary consulted, 3. Check echocardiogram 4. The patient may need chest tube for drainage of loculated fluid 5. Rheumatoid factor CCP FADI panel ANCA sent 6. Home medications continued including colchicine and allopurinol Attestations Medical Necessity Statement*: Hieu Galvan's hospital stay will require greater than 2 midnights for pneumonia Coding Level of Care Code Acute Data Integrity Analyst for g Fwd Exam Comprehensive Diagnoses Pleural effusion J90 Empyema J86.9 Pericardial effusion I31.3 Gout M10.9 Pneumonia J18.9 Laterality: bilateral Lung location: lower lobe of lung Pneumonia type: due to unspecified organism Chest pain R07.89 Chest pain type: other chest pain
[2020-04-24 16:21] LABS: Troponin 5 6HR 6.52 ng/L (0-15)
[2020-04-24 16:26] LABS: Troponin 5 6HR Delta -0.48 ng/L (0-12)
[2020-04-24] MEDS: enoxaparin 40 mg/0.4 mL Syringe SUBCUT (17:28)
[2020-04-24] MEDS: HYDROcodone-acetaminophen 5-325 mg Tablet 1 TAB PO ×2 (17:28→21:26)
[2020-04-24] MEDS: vancomycin 1,250 MG/250 ML PIGGYBACK 250 MG IV (17:35)
--- NOTE | 2020-04-24 17:50 | PC.NURSE ---
ADMISSION Patient was able to get self off ER bed and onto ICU bed. Once hooked up to ICU monitor o2 showed saturation of 89% on 2L with patient breathing approximately 30times per min. nurse increased oxygen to 5L. took patient approximately 30 min to relax and start breathing easier. oxygen saturation increased to 95% with 20RR. Heart rate noted to be tachy throughout episode. patient educated instructor of education light, bed settings, and urinal. patient requesting pain medication upon admission for left sided pain. see MAR for pain medication administration. called and updated on patient status.
[2020-04-24] MEDS: piperacillin-tazobactam 3.375 GM in sodium chloride 0.9% (plus) 50 ML IV (18:20)
[2020-04-24] MEDS: ibuprofen 200 mg Tablet 400 MG PO (19:29)
--- NOTE | 2020-04-24 20:13 | PC.NURSE ---
Pt c/o 10/10 pain upon initial assessment. MD notified and to room to assess patient. Ibuprofen ordered and given. Pt currently sleeping. Will continue to monitor for pain and notify MD as needed.
[2020-04-24] MEDS: albuterol 8 gm MDI 2 PUFF INHALATION ×2 (20:35→23:32)
[2020-04-25] VITALS (293 sets, daily range): BP systolic 92–137; BP diastolic 62–85; PULSE 70–117; RESP 12–48; TEMP 36.6–37.3; O2SAT 89–98
[2020-04-25] MEDS: vancomycin 1,250 MG/250 ML PIGGYBACK 250 MG IV ×3 (01:36→17:04)
[2020-04-25] MEDS: piperacillin-tazobactam 3.375 GM in sodium chloride 0.9% (plus) 50 ML IV ×3 (03:14→18:23)
[2020-04-25 05:21] LABS: Basophils % 0.3 %; Eosinophils # 0.4 10^3/uL (0.0-0.8); Eosinophils % 3.1 %; Hematocrit 41.6 % (42.0-52.0); Hemoglobin 13.4 g/dL (11.7-16.6); Lymphocytes # 1.3 10^3/uL (0.8-4.8); Lymphocytes % 9.9 %; Mean Corpuscular HGB Conc 32.2 g/dL (30.0-36.0); Mean Corpuscular Hemoglobin 30.2 pg (28.0-34.0); Mean Corpuscular Volume 93.9 fL (80-94); Mean Platelet Volume 12.2 fL (7.4-10.4); Monocytes # 1.3 10^3/uL (0.2-0.9); Monocytes % 10.1 %; Neutrophils % 76.1 %; Nucleated Red Blood Cells % 0 %; Platelet Count 229 10^3/cmm (130-400); Red Blood Count 4.43 10^6/uL (4.1-5.3); Red Cell Distribution Width 13.8 % (12.1-15.1); White Blood Count 12.7 10^3/uL (4.0-10.0)
[2020-04-25] MEDS: allopurinol 100 mg Tablet PO (05:48)
[2020-04-25 05:51] LABS: Anion Gap 18.1 (5-19); Blood Urea Nitrogen 11 mg/dL (6-20); Calcium 9.4 mg/dL (8.5-10.5); Carbon Dioxide 25 mmol/L (22-29); Chloride 98 mmol/L (98-107); Glomerular Filtration Rate 87.9 mL/min (90-130); Glucose 121 mg/dL (65-115); Osmolality Calculated 285 mOsm/kg (285-295); Potassium 4.1 mmol/L (3.5-5.1); Sodium 137 mmol/L (136-145)
[2020-04-25 05:59] LABS: NT Pro B Type Natriuretic Pept 8 pg/mL (0-125)
--- NOTE | 2020-04-25 06:00 | USCV_ITS ---
Hieu Galvan Age: 55 Gender: M : 1965 Exam Date: 04/25/2020 13:40 Ordering Phys: Mica Guerra MD Technologist: Tiffanie Winn [place]am [place] [facility] [place] [facility] [place] Indication: SEVERE CHEST PAIN. ?PERICARDIAL EFFUSION BP: 119 / 73 HR: 110 Rhythm: Sinus Technical Quality: Adequate MEASUREMENTS (Male / Female) Normal Values 2D ECHO LV Diastolic Diameter PLAX 3.2 cm 4.2 - 5.9 / 3.9 - 5.3 cm LV Systolic Diameter PLAX 2.3 cm LV Chamber Size 3.6 cm IVS Diastolic Thickness 1.0 cm 0.6 - 1.0 / 0.6 - 0.9 cm IVS Systolic Thickness 1.6 cm LVPW Diastolic Thickness 1.4 cm 0.6 - 1.0 / 0.6 - 0.9 cm LVPW Systolic Thickness 2.1 cm RV Chamber Size 3.6 cm LVOT Diameter 2.0 cm LV Ejection Fraction 2D Teich 55.8 % LV Ejection Fraction MOD 2C 68.2 % LV Ejection Fraction 2C AL 69.8 % LA Diameter 3.4 cm LA Width 2.9 cm LA Height 5.6 cm RA Width 3.9 cm RA Height 4.5 cm Aorta at Sinotubular Diameter 3.1 cm M-MODE LV Diastolic Diameter MM 3.4 cm 4.2 - 5.9 / 3.9 - 5.3 cm LV Systolic Diameter MM 1.8 cm LV Ejection Fraction MM Teich 78.5 % IVS Diastolic Thickness MM 1.4 cm 0.6 - 1.0 / 0.6 - 0.9 cm IVS Systolic Thickness MM 1.8 cm LVPW Diastolic Thickness MM 1.1 cm 0.6 - 1.0 / 0.6 - 0.9 cm LVPW Systolic Thickness MM 1.6 cm RV Diastolic Diameter MM 1.9 cm Aortic Annulus Diameter 3.7 cm LA Ao Ratio MM 1.2 MV E Point Septal Separation 0.7 cm DOPPLER AV Peak Velocity 219.2 cm/s LVOT Peak Velocity 117.0 cm/s AV Area Cont Eq vti 1.7 cm squared AV Area Cont Eq pk 1.8 cm squared MV Area PHT 5.9 cm squared Mitral E to A Ratio 1.3 MV E' Velocity 47.5 cm/s Mitral E to MV E' Ratio 7.5 Mitral E to LV E' Lateral Ratio 7.6 Mitral E to LV E' Septal Ratio 7.5 TR Peak Velocity 307.0 cm/s TR Peak Gradient 37.7 mmHg TR Mean Velocity 199.9 cm/s TR Mean Gradient 20.0 mmHg TR Velocity Time Integral 79.1 cm TV Peak E Velocity 65.0 cm/s Right Atrial Pressure 3.0 mmHg Pulmonary Artery Systolic Pressu 40.7 mmHg PV Peak Velocity 89.0 cm/s RV Acceleration Time 0.1 s RV Ejection Time 0.3 s RV AcT/ET 0.5 FINDINGS Left Ventricle Normal left ventricular cavity size. Normal left ventricular systolic function. Left ventricular ejection fraction is estimated at 60-65 %. No diagnostic regional wall motion abnormality. Abnormal septal motion consistent with conduction abnormality. Right Ventricle Normal right ventricular size and systolic function. Right ventricular systolic pressure 40.7 mmHg. Right Atrium Normal right atrial size. Left Atrium Normal left atrial size. Mitral Valve Mitral valve not well visualized. No mitral valve stenosis. No significant mitral valve regurgitation. Aortic Valve Aortic valve not well visualized. Probably tricuspid aortic valve. No aortic valve stenosis. Tricuspid Valve Structurally normal tricuspid valve. Trace tricuspid valve regurgitation. Pulmonic Valve Pulmonic valve not well visualized. Pericardium No pericardial effusion. Aorta Aorta not well visualized. CONCLUSIONS 1. This is a technically difficult study. 2. Normal left ventricular cavity size and systolic function. Left ventricular ejection fraction is estimated at 60-65 %. No diagnostic regional wall motion abnormality. 3. No significant valvular abnormality. 4. Pulmonary artery pressure estimated at 41 mmHg. 5. No prior similar studies to compare. Dania Camacho MD (Electronically Signed) Final Date: 25 April 2020 17:50 S
[2020-04-25 08:01] LABS: Procalcitonin 0.61 ng/mL (0-0.5)
--- NOTE | 2020-04-25 08:52 | PC.CHAP ---
Pastoral Care Encounter/Spiritual Assessment Type of Contact [] Declined drywall sander visit [] Patient/Family/Request visit [] Outpatient visit [] Follow-up visit [] Physician referral [] Code/Alert [] Routine visit [] Staff referral [] Actively dying [] Patient sleeping [] Family support [] [] Out of room [] Palliative care [] [] Receiving care in room [] Pre-surgical visit [] Trauma [] Long length of stay [] ICU visit [] Other: Relational/Emotional Strength [] Patient feels connected with others/family/visitors/staff [] Distress [] Loneliness/isolation [] Abandonment Spirituality of Patient [] Person of Andree [] Attends Roman Catholic of their Andree [] Believes in Prayer [] Reads Bible or Synagogue materials [] There are Spiritual issues to be addressed Commodities Clerk Interventions [x] Prayer [] Active listening [] Non-anxious presence [] Spiritual/emotional support [] Crisis/trauma care [] Spiritual counseling [] Bereavement support [] Provided bereavement packet [] Provided Bible/devotional materials [] Provided toy/stuffed animal, coloring book to patient or family member [] Provided Communion [] Anointing/[place] [] Salvation [x] Completed spiritual assessment [] Other: Impact on Illness or Injury [] Angry [] Fearful [] Anxious [] Often cries [] Exhaustion [] Unable to work [] Unable to attend sabianist [] Unable to walk/stand [] Unable to read [] Unable to drive [] Unable to eat/drink [] Unable to sleep [] Unable to be with family [] Patient intubated [] Other: Summary Time spent with patient
--- NOTE | 2020-04-25 09:12 | PC.RESP ---
Smoking Cessation information sent to patient.
[2020-04-25] MEDS: HYDROmorphone 1 mg/mL INJ 1 mL 0.5 MG IVP ×4 (09:33→22:21)
--- NOTE | 2020-04-25 15:37 | XR_ITS ---
WS: [id number] XR chest 1V portable [id number] REASON FOR EXAM: post thoracentesis FINDINGS: Compared to the previous examination of 04/24/2020 opacification of the left lower hemithorax persists . Presumably this represents lung consolidation/atelectasis and some remaining pleural fluid postthor acentesis. New findings are 2 sharply marginated, presumably extrapulmonary, mass densities projected over the l ateral chest at the level of the left posterior third rib and the fifth and sixth left posterior ribs . Atelectasis in the right lower lobe again noted. Partial resolution compared to the previous study. XR/XR chest 1V portable [id number] IMPRESSION: Persistent density over the lower left hemithorax as above. New findings as noted above. Possibly this represents some overlying artifact. Otherwise hemorrhage must be considered. Recommend follow-up chest x-ray VASQUEZ.
--- NOTE | 2020-04-25 15:44 | P.OP_ITS ---
Operative Report Date of procedure: April 25, 2020 Pre-op Diagnosis: Left-sided pleural effusion Post-op diagnosis: same Brief History: Is a 55 gentleman with loculated left-sided pleural effusion with concern for empyema. Procedure: Name of the procedure: Left thoracentesis. Indication: Suspicion for empyema Anesthetics: Local anesthesia with 1% lidocaine. IV pain medication: None. Description of the procedure: The procedure was explained to the patient in detail including the risks and a consent was obtained. The left hemithorax was scanned with ultrasound. Loculated pleural if was identified. There was small amount of fluid with pleural thickening noted. Following identification of the fluid pocket the site was marked. The site was cleaned using sterile technique. Lidocaine 1% was injected into the skin and the subcutaneous tissue. Subsequently, the periosteum in the parietal pleural was also anesthetized using lidocaine. The pleural space was entered in the l eft paraspinal area. With lifetime ultrasound guidance no fluid could be aspirated. Sample: The procedure was aborted after 2 attempts. Postprocedure chest x-ray is pending.
--- NOTE | 2020-04-25 15:49 | P.CONIM_ITS ---
Providers/Reason For Consult Consulting Physican/Specialty*: Pulmonary and critical care medicine Reason for Consult*: Left-sided loculated pleural effusion Attending Physician: Guillermo King Primary Care Provider: Kassie Flannery APN History of Present Illness History of Present Illness Hieu Galvan is a 55 year old male who presented to the hospital yesterday with worsening left-sided chest pain. The patient seems to have an interesting story. The patient was diagnosed with pulmonary alveolar proteinosis in 2008 after undergoing a surgical lung biopsy of the right lung. The patient is an active smoker and smokes about a pack a day and has been smoking for significant duration of time. The patient was completely functional. 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 4 days ago, after work done the patient experienced sudden onset of left-sided chest pain and shortness of breath. The patient at the time presented to the emergency department and underwent a CT angiogram of the chest. The CT angiogram on April 22 did not reveal any pulmonary embolism. There was groundglass opacity involving both lungs and bibasilar consolidation with air bronchograms. The patient was treated with amoxicillin and azithromycin and sent home. The patient presented on April 24 with worsening left-sided chest pain and underwent CT scan of chest abdomen and pelvis. There was no evidence of pulmonary embolism. There was worsening left-sided lower lobe atelectasis with loculated pleural effusion, pleural thickening and distortion of the lung tissue. There is also a small amount of pericardial effusion noted. No abdominal abnormalities were identified. The patient was seen and examined. He denies any fever, complains of frothy sputum, occasional wheezing, left-sided chest pain and worsening shortness of breath. The patient is in visible pain and tachypneic. A bedside ultrasound revealed loculated small amount of pleural effusion with pleural thickening. There is no pleural effusion on the right. Thoracentesis was attempted but no fluid was aspirated. Postprocedure chest x-ray revealed significant worsening of the loculated effusion, volume loss on the left side compared to yesterday. Review of Systems Narrative: General: No fevers or chills Skin: No rash HEENT: No nasal congestion, rhinitis, sinusitis, sneezing, hoarseness of voice Neck: There is no neck swelling, mass or swollen glands. Respiratory: Please see my HPI. Cardiovascular: shortness of breath with exertion, no orthopnea, proximal nocturnal dyspnea, palpitation or lower extremity edema. Gastrointestinal: No abdominal pain, nausea, vomiting, melena Musculoskeletal: No joint pain or swelling, muscle weakness, morning stiffness, numbness or tingling. Neurological: Patient is awake alert and oriented x3, no paralysis, gross motor function is normal. Psychiatric: No anxiety or depression. Meds/Allergies Home Medications and Allergies Home Medications Medication Instructions Recorded Confirmed Last Taken Type allopurinol 100 mg PO DAILY@05 07/12/19 04/24/20 04/22/20 History azithromycin See Rx Instructions .ROUTE 04/22/20 04/24/20 04/23/20 Rx .COMPLEX #6 tab colchicine [Colcrys] 0.6 mg PO Q1H PRN 04/22/20 04/24/20 Unknown History amoxicillin 1,000 mg PO TID@04/24/20 04/24/20 04/23/20 History diphenhydramine HCl [Benadryl] 50 mg PO Q6H PRN 04/24/20 04/24/20 Unknown History ibuprofen 200 mg PO Q6H PRN 04/24/20 04/24/20 04/22/20 History Allergies Allergy/AdvReac Type Severity Reaction Status Date / Time codeine Allergy ADR-Nausea Verified 07/12/19 01:50 Current Medications Current Medications Generic Name Dose Route Start Last Admin Trade Name Freq PRN Reason Stop Dose Admin Hydrocodone Bitart/Acetaminophen 1 tab 04/24/20 16:45 04/24/20 21:26 Hydrocodone-Acetaminophen 5-325 Mg Tablet PO 1 tab Q4H PRN Administration MODERATE TO SEVERE PAIN Albuterol Sulfate 2 puff 04/24/20 20:22 04/24/20 23:32 Albuterol 8 Gm Mdi INHALATION 2 puff Q4H.RESPIRATORY PRN Administration SHORTNESS OF BREATH Allopurinol 100 mg 04/25/20 05:00 04/25/20 05:48 Allopurinol 100 Mg Tablet PO 100 mg DAILY@05 MIGNON Administration Enoxaparin Sodium 40 mg 04/24/20 18:00 04/24/20 17:28 Enoxaparin 40 Mg/0.4 Ml Syringe SUBCUT 40 mg Q24H MIGNON Administration Hydromorphone HCl 2 mg 04/25/20 02:27 04/25/20 06:03 Hydromorphone 4 Mg Tablet PO 2 mg Q6H PRN Administration PAIN Hydromorphone HCl 0.5 mg 04/25/20 09:08 04/25/20 13:54 Hydromorphone 1 Mg/Ml Inj 1 Ml IVP 0.5 mg Q4H PRN Administration SEVERE PAIN Piperacillin Sod/Tazobactam 50 mls @ 12.5 mls/hr 04/24/20 19:00 04/25/20 11:51 Sod 3.375 gm/ Sodium Chloride IV 12.5 mls/hr Q8H MIGNON Administration Protocol Vancomycin/PEG/NADA/Lysine/Water 1,250 mg in 250 mls @ 250 mls/hr 04/24/20 18:00 04/25/20 11:51 Vancocin IV Infused Q8H MIGNON Infusion PFSH Acute PFSH: Medical History Pulmonary alveolar proteinosis Social History Smoking and tobacco status: current every day smoker Vitals/I&O/Wt Last Vital Signs Temp 99.0 F 04/25/20 14:00 Pulse 98 04/25/20 14:25 Resp 22 H 04/25/20 14:25 BP 126/80 04/25/20 14:25 Pulse Ox 93 04/25/20 14:25 04/25/20 04/25/20 04/25/20 06:59 14:59 22:59 Intake Total 370 / 1270 800 / 800 Output Total 1300 / 1300 425 / 425 Balance -930 / -30 375 / 375 Weight last 48 hrs Weight 230 lb Physical Exam Narrative: EXAM NARRATIVE: General: Patient is awake alert and oriented, in mild to moderate distress from left-sided chest pain HEENT: Pupil bilateral symmetric, light and accommodation reflex present, extraocular muscle movement intact, no deformity of the nose Neck: No JVD, no cervical or supraclavicular lymphadenopathy. Respiratory: Inspection: No visible deformity of the chest wall, scar in the right posterior chest from previous thoracotomy Palpation: Trachea is mildly deviated to the left, reduced expansion in the left chest, reduced vocal fremitus in the same area Percussion: Dull percussion note in the left posterior thorax Auscultation: Reduced breath sound in the posterior hemithorax on the left side, occasional crackles at the right lower lung base, no wheezing or rhonchi Cardiovascular: Regular rate and rhythm, S1-S2 present, no murmur,no peripheral edema. Abdomen: Soft, nontender, nondistended, positive bowel sound Musculoskeletal: No obvious joint deformity Skin: No rash, no evidence of erythema nodosum or multiforme. Neuro: Mental status is normal, no gross cranial nerve deficit, normal motor and coordination. Data Micro: Micro: Microbiology 04/24/20 11:18 Blood Culture - Pr eliminary Blood NEGATIVE TO SEVERIANO E 04/24/20 09:32 Blood Culture - Pr eliminary Blood NEGATIVE TO SEVERIANO E Other Data: Attestation for Other Data: I personally reviewed and interpreted the following: Other data: I have reviewed the patient's laboratory, microbiologic and radiologic data. The white count is coming down. However there is significant progression of the loculated pleural effusion with significant loss of lung volume on the left side with mild shift in the trachea towards the left. A&P Assessment and plan (1) Empyema: The patient most likely has complex parapneumonic effusion or empyema. Unfortunately, I was unable to obtain in pleural fluid. Looking at the chest x- ray, the patient likely has explosive pleuritis with significant increase in pleural effusion, loculation, loss of lung volume and mild midsternal shift to the left. At this point, the patient will need a decortication procedure. I have discussed this with the patient and the primary team. Status: Acute (2) Pneumonia: The patient most likely had community-acquired pneumonia complicated by parapneumonic pleural effusion and/or empyema. Currently he is broadly covered with Zosyn and vancomycin. Once the patient undergoes decortication, appropriate microbiologic samples can be obtained and antibiotic can be modified based on that. Thank you for the consultation. 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
--- NOTE | 2020-04-25 15:52 | P.PN_ITS ---
Subjective Subjective: Interval history: 55 year old with past medical history of gasteroesophageal reflux disease, anxiety, depression, MRSA cellulites, and pulmonary alveolar proteinosis who presented to hospital with worsening dyspnea as well as left sided chest pain. Patient was initially seen on 04/22/2020 during this time he did have a CTA chest which showed diffuse interstitial and groundglass opacities in the lung compatible with mild pneumonitis. More prominent basilar airspace opacities and air bronchograms were noted concerning for pneumonic infiltrates. Patient did not want to be admitted during which time he was discharged on amoxicillin 500 mg PO TID and Z-pack. He returned to the hospital on 04/24 as he did not show any improvement. Laboratory work up on return to ER showed a WBC of 16.8, hemoglobin of 14.6, hematocrit of 43.1 and a platelet count of 234. Sodium of 132, potassium of 4.1, chloride of 97, bicarbonate of 20, BUN of 10 and a creatinine of 0.8. Procalcitonin of 0.86. Patient was started of Vancomycin and zosyn. CT chest/abdomen/pelvis was performed which showed worsening atelectasis of the left lower lobe/lingual with increasing interstitial infiltrates in the upper lobes. Also noted to have worsening atelectasis in the right middle lobe with scattered right lung interstitial infiltrates. Increasing loculated left pleural effusion was also seen. Subjective 04/25/2020 Patient was continued on supplemental o2 at 3L via NC. Did have significant desaturation with exertion. No fever or chills, Denied nausea, vomiting or abdominal pain. Patient did have attempted thoracentesis with pulmonary medicine however due to significant effusion with loculation CTS was consulted. Vitals/I&O/Wt Last Vital Signs Temp 99.0 F 04/25/20 14:00 Pulse 98 04/25/20 14:25 Resp 22 H 04/25/20 14:25 BP 126/80 04/25/20 14:25 Pulse Ox 93 04/25/20 14:25 04/25/20 04/25/20 04/25/20 06:59 14:59 22:59 Intake Total 370 / 1270 800 / 800 Output Total 1300 / 1300 425 / 425 Balance -930 / -30 375 / 375 Weight last 48 hrs Weight 104.326 kg Physical Exam Narrative: EXAM NARRATIVE: General : alert, awake in mild distress due left sided pleurtic cp HEENT : Grossly unremarkable CVS: NSR CHEST : non-labored respiration on 3L of o2 via NC ABD : Nondistedned Ext : no edema Data : 04/25/20 04:46 04/25/20 04:46 Micro: Microbiology 04/24/20 11:18 Blood Culture - Preliminary Blood NEGATIVE TO DATE 04/24/20 09:32 Blood Culture - Preliminary Blood NEGATIVE TO DATE A&P Assessment and plan (1) Acute respiratory failure with hypoxia: Status: Acute (2) Loculated pleural effusion: Status: Acute (3) Pneumonia: Status: Acute Qualifiers: Laterality: bilateral Lung location: lower lobe of lung Pneumonia type: due to unspecified organism Qualified Code(s): J18.9 - Pneumonia, unspecified organism (4) Gout: Status: Acute Acute hypoxic respiratory failure due to multi-focal pneumonia with increasing loculated pleural effusion - Continue supplemental o2 as needed. - Pulmonary on board - Attempted thoracentesis - CTS consulted for extensive effusion - likely to require decortication - Will continue broad specturm antibiotics including vancomycin pharmacy to dose and Zosyn 3.375g IV q8hr - Continue albuterol/atrovent - Follow up on COVID-19 PCR sent out - Droplet precautions until covid 19 resulted. - Follow up on culture - NGTD - RF positive - Will follow on additional rheum work up - Repeat Chest x-ray in AM - Pain control Additional medical history Pulmonary alveolar proteonosis Anxiety/ Depression Gout GERD DVT ppx - SCDS only due to planned invasive procedure. Attestations Medical Necessity Statement*: Will require further hospitalization for IV abx and anticipated decortication. Time Spent in Patient Care: Greater than 35 minutes (>than 50% of time spent in counselling and/or direct pt care on unit) . 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
[2020-04-25] MEDS: ketorolac 30 mg/mL INJ IVP ×2 (16:04→22:20)
[2020-04-25] MEDS: enoxaparin 40 mg/0.4 mL Syringe SUBCUT (17:04)
--- NOTE | 2020-04-25 18:22 | P.CONIM_ITS ---
Providers/Reason For Consult Consulting Physican/Specialty*: Dr. Youngblood, cardiothoracic surgery Reason for Consult*: Empyema left hemithorax Attending Physician: Guillermo King Primary Care Provider: Kassie Flannery APN History of Present Illness History of Present Illness Hieu Galvan is a 55 year old male who is been hospitalized since yesterday, presenting with a sudden acute onset of left-sided chest discomfort along with dyspnea. He had recently been in the emergency department 2 days prior, on April 22, with left-sided chest discomfort and shortness of breath. CT at that time was negative for pulmonary embolism and he was treated with amoxicillin and azithromycin and discharged. He was also noted to have groundglass opacity involving both lungs and bibasilar consolidation with bronchograms. Upon his representation of April 24 the left-sided chest discomfort had substantially worsened and CT scan of the chest, abdomen, and pelvis at that time revealed consolidation of the left lower lobe with atelectasis, loculated pleural effusion, pleural thickening, and lung tissue distortion. Small pericardial effusion was also noted. There were no abdominal findings of concern. Dr. Murphy saw the gentleman earlier today in consultation and attempted n ultrasound-guided thoracentesis but without recovery of fluid. I have been consulted at Dr. Murphy's recommendation to consider thoracotomy and decortication. At the time of my visit review of Mr. Galvan chart and current condition, he was having dinner and appear to be in no distress. It is noted that he does have a decreasing white count. He does note substantial left-sided discomfort and dyspnea with only modest activity. He currently is on Zosyn and vancomycin. He remains an active smoker. Review of Systems Const: Reports: change in appetite and fatigue; Denies: fever(s), chills, change in weight or night sweats Eyes: Denies: change in vision or blurry vision ENMT: Denies: odynophagia or hoarseness Card: Denies: chest pain, palpitations, irregular heart rhythm or edema Resp: Reports: dyspnea; Denies: productive cough or hemoptysis GI: Denies: abdominal pain, nausea, vomiting, dysphagia, heartburn or change in bowel habits : Denies: difficulty urinating, dysuria, urinary frequency, urinary urgency or urinary hesitancy Musc: Denies: extremity pain or extremity swelling Skin/Breast: Denies: rash Neuro: Denies: headache(s), numbness in extremities, weakness in extremities or sensory changes Psych: Denies: anxiety, depression or change in appetite Endo: Denies: polyuria, polydipsia or cold intolerance Silas/Lymph: Denies: easy bruising, easy bleeding, petechiae or enlarged lymph nodes Meds/Allergies Home Medications and Allergies Home Medications Medication Instructions Recorded Confirmed Last Taken Type allopurinol 100 mg PO DAILY@05 07/12/19 04/24/20 04/22/20 History azithromycin See Rx Instructions .ROUTE 04/22/20 04/24/20 04/23/20 Rx .COMPLEX #6 tab colchicine [Colcrys] 0.6 mg PO Q1H PRN 04/22/20 04/24/20 Unknown History amoxicillin 1,000 mg PO TID@04/24/20 04/24/20 04/23/20 History diphenhydramine HCl [Benadryl] 50 mg PO Q6H PRN 04/24/20 04/24/20 Unknown History ibuprofen 200 mg PO Q6H PRN 04/24/20 04/24/20 04/22/20 History Allergies Allergy/AdvReac Type Severity Reaction Status Date / Time codeine Allergy ADR-Nausea Verified 07/12/19 01:50 Current Medications Current Medications Generic Name Dose Route Start Last Admin Trade Name Freq PRN Reason Stop Dose Admin Hydrocodone Bitart/Acetaminophen 1 tab 04/24/20 16:45 04/24/20 21:26 Hydrocodone-Acetaminophen 5-325 Mg Tablet PO 1 tab Q4H PRN Administration MODERATE TO SEVERE PAIN Albuterol Sulfate 2 puff 04/24/20 20:22 04/24/20 23:32 Albuterol 8 Gm Mdi INHALATION 2 puff Q4H.RESPIRATORY PRN Administration SHORTNESS OF BREATH Allopurinol 100 mg 04/25/20 05:00 04/25/20 05:48 Allopurinol 100 Mg Tablet PO 100 mg DAILY@05 MIGNON Administration Hydromorphone HCl 2 mg 04/25/20 02:27 04/25/20 06:03 Hydromorphone 4 Mg Tablet PO 2 mg Q6H PRN Administration PAIN Hydromorphone HCl 0.5 mg 04/25/20 09:08 04/25/20 13:54 Hydromorphone 1 Mg/Ml Inj 1 Ml IVP 0.5 mg Q4H PRN Administration SEVERE PAIN Piperacillin Sod/Tazobactam 50 mls @ 12.5 mls/hr 04/24/20 19:00 04/25/20 17:04 Sod 3.375 gm/ Sodium Chloride IV Infused Q8H MIGNON Infusion Protocol Vancomycin/PEG/NADA/Lysine/Water 1,250 mg in 250 mls @ 250 mls/hr 04/24/20 18:00 04/25/20 17:04 Vancocin IV 250 mls/hr Q8H MIGNON Administration Ketorolac Tromethamine 30 mg 04/25/20 16:00 04/25/20 16:04 Ketorolac 30 Mg/Ml Inj IVP 04/28/20 15:59 30 mg Q6H MIGNON Administration PFSH Acute PFSH: Medical History (Updated 04/25/20 @ 19:55 by Guillermo King MD) Pulmonary alveolar proteinosis Surgical History (Updated 04/25/20 @ 18:27 by Dionte Youngblood MD) History of lung biopsy Social History Smoking and tobacco status: current every day smoker Vitals/I&O/Wt Last Vital Signs Temp 98.9 F 04/25/20 18:00 Pulse 88 04/25/20 18:00 Resp 29 H 04/25/20 18:00 BP 121/77 04/25/20 18:00 Pulse Ox 96 04/25/20 18:00 04/25/20 04/25/20 04/25/20 06:59 14:59 22:59 Intake Total 370 / 1270 800 / 800 400 / 1200 Output Total 1300 / 1300 425 / 425 400 / 825 Balance -930 / -30 375 / 375 0 / 375 Weight last 48 hrs Weight 230 lb Physical Exam Const: COMMON NORMALS: patient oriented x3 and alert ORIENTATION/CONSCIOUSNESS: Yes oriented to person, Yes oriented to place and Yes oriented to time HENMT: COMMON NORMALS: normocephalic HEAD & SCALP: normocephalic; no cranial bruits Neck/C-Spine: COMMON NORMALS: full ROM, supple, no JVD and No carotid bruits GENERAL: Yes trachea midline CERVICAL SPINE: Yes cervical ROM normal Chest: COMMONS NORMALS: normal inspection of the chest and normal palpation of entire chest wall Resp: COMMON NORMALS: normal respiratory effort and No use of accessory muscles; negative for clear to auscultation bilaterally and negative for percussion normal EFFORT & INSPECTION: Yes able to speak in complete sentences AUSCULTATION: not clear to auscultation bilaterally and diminished lung sounds on the left in the lower lung mcclain PERCUSSION: percussion abnormal and dullness Lower: left Cardio: COMMON NORMALS: no JVD, regular rate, regular rhythm, S1 normal heart sound present, S2 normal heart sound present, No gallops present (Cardio), No murmurs present (Cardio), No rub (Cardio) and Peripheral pulses 2+ throughout JUGULAR VENOUS DISTENTION: no JVD RATE: regular rate RHYTHM: regular rhyt hm HEART SOUNDS: S1 normal heart sound present and S2 normal heart sound present PERIPHERAL PULSES: Peripheral pulses 2+ throughout Neuro: COMMON NORMALS: patient oriented x3, no focal motor deficits and no sensory deficits noted SENSORIUM/ORIENTATION: Yes alert, Yes oriented to person, Yes oriented to place and Yes oriented to time GAIT: Yes Normal gait present Data Micro: Micro: Microbiology 04/24/20 11:18 Blood Culture - Pr eliminary Blood NEGATIVE TO SEVERIANO E 04/24/20 09:32 Blood Culture - Pr eliminary Blood NEGATIVE TO SEVERIANO E A&P Assessment and plan (1) Empyema: This 55-year-old gentleman has developed a parapneumonic left-sided effusion with subsequent consolidation consistent with empyema with lung entrapment, involving the left lower lobe. Unsuccessful attempt at thoracentesis for fluid recovery, necessitates consideration for thoracotomy and decortication for adequate clearing of the left hemothorax. Rationale for this was carefully and frankly discussed with Latanya Cole. Details and risk of the procedure reviewed. Potential for increased pain, lung injury, injury to major vascular structures, pneumothorax requiring prolonged need for chest tube, as well as additional further procedures are certainly possible and carefully discussed. He stated understanding and wished to proceed. We will tentatively plan for surgery the afternoon of April 26. 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
--- NOTE | 2020-04-25 20:00 | PC.NURSE ---
Received bed side shift report from off going nurse. Pt's plan of care reviewed. Pt was sleeping upon entering the room. Respirations are even and unlabored. No s/sx of distress noted at this time. Pt is saturating 94% on 3LPM/NC. Pt was easily woken. Pt c/o mild pain in his left chest. Pt has prn and scheduled pain medication for pain management. Pt states that his pain is being managed at this time. Pt denies any other pains or concerns at this time. Bed in lowest and locked position, call light and water within reach, x's 2 rails up. Pt was educated that he has to be NPO after midnight for an AM procedure. Pt verbally stated he understood. Will continue to monitor pt.
[2020-04-26] VITALS (80 sets, daily range): BP systolic 110–176; BP diastolic 70–114; PULSE 73–114; RESP 11–40; TEMP 36.2–37.3; O2SAT 93–100
[2020-04-26] MEDS: HYDROmorphone 1 mg/mL INJ 1 mL 0.5 MG IVP ×5 (02:31→23:49)
[2020-04-26 02:47] LABS: Basophils # 0.1 10^3/uL (0.0-0.1); Basophils % 0.5 %; Eosinophils # 0.4 10^3/uL (0.0-0.8); Eosinophils % 3.5 %; Hematocrit 41.6 % (42.0-52.0); Lymphocytes # 1.5 10^3/uL (0.8-4.8); Lymphocytes % 14.5 %; Mean Corpuscular HGB Conc 31.3 g/dL (30.0-36.0); Mean Corpuscular Hemoglobin 30.6 pg (28.0-34.0); Mean Corpuscular Volume 97.9 fL (80-94); Mean Platelet Volume 10.7 fL (7.4-10.4); Monocytes # 1.2 10^3/uL (0.2-0.9); Monocytes % 11.6 %; Neutrophils # 7.04 10^3/uL (1.8-7.7); Neutrophils % 69.5 %; Nucleated Red Blood Cells % 0 %; Platelet Count 245 10^3/cmm (130-400); Red Blood Count 4.25 10^6/uL (4.1-5.3); Red Cell Distribution Width 13.7 % (12.1-15.1); White Blood Count 10.1 10^3/uL (4.0-10.0)
[2020-04-26 03:07] LABS: Alanine Aminotransferase 24 U/L (0-41); Albumin Level 3.5 g/dL (3.5-5.2); Alkaline Phosphatase 73 IU/L (40-130); Anion Gap 15.1 (5-19); Aspartate Amino Transferase 16 U/L (0-40); Blood Urea Nitrogen 15 mg/dL (6-20); Calcium 9.2 mg/dL (8.5-10.5); Carbon Dioxide 25 mmol/L (22-29); Chloride 97 mmol/L (98-107); Globulin 3.3 g/dL (1.3-4.6); Glomerular Filtration Rate 87.9 mL/min (90-130); Glucose 112 mg/dL (65-115); Osmolality Calculated 278 mOsm/kg (285-295); Potassium 4.1 mmol/L (3.5-5.1); Sodium 133 mmol/L (136-145); Total Bilirubin 0.3 mg/dL (0.15-1.2); Total Protein 6.8 g/dL (6.6-8.7)
[2020-04-26 03:17] LABS: Vancomycin Trough 11.1 ug/mL (10-15)
[2020-04-26] MEDS: vancomycin 1,250 MG/250 ML PIGGYBACK 250 MG IV (03:44)
[2020-04-26] MEDS: piperacillin-tazobactam 3.375 GM in sodium chloride 0.9% (plus) 50 ML IV ×3 (03:48→20:09)
[2020-04-26] MEDS: allopurinol 100 mg Tablet PO (05:01)
[2020-04-26] MEDS: ketorolac 30 mg/mL INJ IVP ×3 (05:01→19:39)
--- NOTE | 2020-04-26 06:25 | XR_ITS ---
WS: [id number] PORTABLE CHEST HISTORY: Pre-op COMPARISON: 04/25/2020, CT 04/24/2020 Increasing consolidation throughout the LEFT thorax. On a recent CT the increasing density was a comb ination of atelectasis and pleural fluid. Very little aerated lung in the LEFT upper lung field. The extent of the effusion and atelectasis has increased since 04/24/2020. Minimal atelectasis at the RIGH T lung base. No pneumothorax. Cardiac size: Mildly enlarged but partially obscured by the adjacent consolidation in the LEFT lung. Mediastinum/Aorta: Normal mediastinum. No osseous abnormality seen. XR/XR chest 1V portable [id number] IMPRESSION: 1. Increasing consolidation of the LEFT thorax from a combination of atelectas is and pleural fluid. 2. Minimal subsegmental atelectasis RIGHT lung base.
[2020-04-26] MEDS: lactated ringers 1,000 ML 125 ML IV (06:54)
--- NOTE | 2020-04-26 07:25 | P.PN_ITS ---
Subjective Subjective: Interval history: Cole had uneventful night. Vital signs are stable. Vitals/I&O/Wt Last Vital Signs Temp 98.0 F 04/26/20 07:11 Pulse 76 04/26/20 07:11 Resp 20 H 04/26/20 07:11 BP 116/72 04/26/20 07:11 Pulse Ox 97 04/26/20 07:11 04/25/20 04/26/20 04/26/20 22:59 06:59 14:59 Intake Total 1179 250 / 250 Output Total 700 / 1125 500 / 1625 Balance 480 / 855 -500 / 355 250 / 250 Weight last 48 hrs Weight 230 lb Physical Exam Resp: COMMON NORMALS: normal respiratory effort AUSCULTATION: diminished lung sounds on the left in the lower lung mcclain Cardio: COMMON NORMALS: regular rate, regular rhythm, S1 normal heart sound present, No gallops present (Cardio) and No murmurs present (Cardio) RATE: regular rate RHYTHM: regular rhythm HEART SOUNDS: S1 normal heart sound present Extremity: COMMON NORMALS: no clubbing, cyanosis or edema Data : 04/26/20 02:27 04/26/20 02:27 Micro: Microbiology 04/24/20 11:18 Blood Culture - Preliminary Blood NEGATIVE TO DATE 04/24/20 09:32 Blood Culture - Preliminary Blood NEGATIVE TO DATE A&P Assessment and plan (1) Empyema: We will plan to proceed with left thoracotomy and decortication this afternoon. Rationale again carefully discussed with Mr. Galvan. Details and risk of procedure reviewed. Appropriate consents have been provided for review and signature. 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
--- NOTE | 2020-04-26 08:18 | PC.CHAP ---
Pastoral Care Encounter/Spiritual Assessment Type of Contact [] Declined lay out inspector visit [] Patient/Family/Request visit [] Outpatient visit [] Follow-up visit [] Physician referral [] Code/Alert [] Routine visit [] Staff referral [] Actively dying [] Patient sleeping [] Family support [] [] Out of room [] Palliative care [] [] Receiving care in room [] Pre-surgical visit [] Trauma [] Long length of stay [] ICU visit [] Other: Relational/Emotional Strength [] Patient feels connected with others/family/visitors/staff [] Distress [] Loneliness/isolation [] Abandonment Spirituality of Patient [] Person of Andree [] Attends Scientologist of their Andree [] Believes in Prayer [] Reads Bible or Sikhism materials [] There are Spiritual issues to be addressed Wood [employer] Interventions [x] Prayer [] Active listening [] Non-anxious presence [] Spiritual/emotional support [] Crisis/trauma care [] Spiritual counseling [] Bereavement support [] Provided bereavement packet [] Provided Bible/devotional materials [] Provided toy/stuffed animal, coloring book to patient or family member [] Provided Communion [] Anointing/Oblong [] Salvation [x] Completed spiritual assessment [] Other: Impact on Illness or Injury [] Angry [] Fearful [] Anxious [] Often cries [] Exhaustion [] Unable to work [] Unable to attend buddhism [] Unable to walk/stand [] Unable to read [] Unable to drive [] Unable to eat/drink [] Unable to sleep [] Unable to be with family [] Patient intubated [] Other: Summary Time spent with patient
[2020-04-26] MEDS: albuterol 8 gm MDI 2 PUFF INHALATION ×2 (08:35→20:50)
--- NOTE | 2020-04-26 09:11 | PM.PN ---
Subjective Subjective: Interval history: 55 year old with past medical history of gasteroesophageal reflux disease, anxiety, depression, MRSA cellulites, and pulmonary alveolar proteinosis who presented to hospital with worsening dyspnea as well as left sided chest pain. Patient was initially seen on 04/22/2020 during this time he did have a CTA chest which showed diffuse interstitial and groundglass opacities in the lung compatible with mild pneumonitis. More prominent basilar airspace opacities and air bronchograms were noted concerning for pneumonic infiltrates. Patient did not want to be admitted during which time he was discharged on amoxicillin 500 mg PO TID and Z-pack. He returned to the hospital on 04/24 as he did not show any improvement. Laboratory work up on return to ER showed a WBC of 16.8, hemoglobin of 14.6, hematocrit of 43.1 and a platelet count of 234. Sodium of 132, potassium of 4.1, chloride of 97, bicarbonate of 20, BUN of 10 and a creatinine of 0.8. Procalcitonin of 0.86. Patient was started of Vancomycin and zosyn. CT chest/abdomen/pelvis was performed which showed worsening atelectasis of the left lower lobe/lingual with increasing interstitial infiltrates in the upper lobes. Also noted to have worsening atelectasis in the right middle lobe with scattered right lung interstitial infiltrates. Increasing loculated left pleural effusion was also seen. Subjective 04/25/2020 Patient was continued on supplemental o2 at 3L via NC. Did have significant desaturation with exertion. No fever or chills, Denied nausea, vomiting or abdominal pain. Patient did have attempted thoracentesis with pulmonary medicine however due to significant effusion with loculation CTS was consulted. 04/26/2020 No new clinical events overnight. No fever, or chills, no nausea or vomiting. Awaiting surgery Vitals/I&O/Wt Last Vital Signs Temp 98.3 F 04/26/20 13:00 Pulse 83 04/26/20 13:00 Resp 19 H 04/26/20 13:00 BP 119/77 04/26/20 13:00 Pulse Ox 97 04/26/20 13:00 04/25/20 04/26/20 04/26/20 22:59 06:59 14:59 Intake Total 118 / 1979 300 / 300 Output Total 700 / 1125 500 / 1625 550 / 550 Balance 480 / 855 -500 / 355 -250 / -250 Physical Exam Narrative: EXAM NARRATIVE: General : alert, awake, no distress. HEENT : Grossly unremarkable CVS: NSR CHEST : non-labored respiration on 3L of o2 via NC ABD : Nondistended. Ext : no edema Data : 04/26/20 02:27 04/26/20 02:27 Micro: Microbiology 04/24/20 11:18 Blood Culture - Preliminary Blood NEGATIVE TO DATE 04/24/20 09:32 Blood Culture - Preliminary Blood NEGATIVE TO DATE A&P Assessment and plan (1) Acute respiratory failure with hypoxia: Status: Acute (2) Loculated pleural effusion: Status: Acute (3) Pneumonia: Status: Acute Qualifiers: Laterality: bilateral Lung location: lower lobe of lung Pneumonia type: due to unspecified organism Qualified Code(s): J18.9 - Pneumonia, unspecified organism (4) Gout: Status: Acute Acute hypoxic respiratory failure due to multi-focal pneumonia with increasing loculated pleural effusion - Continue supplemental o2 as needed. - Pulmonary on board - Attempted thoracentesis - Will continue broad specturm antibiotics including vancomycin pharmacy to dose and Zosyn 3.375g IV q8hr - Continue albuterol/atrovent - Follow up on COVID-19 PCR sent out - Droplet precautions until covid 19 resulted. - Follow up on culture - NGTD - RF positive - Will follow on additional rheum work up - Pain control - CTS consulted - Plan to go to OR today Additional medical history Pulmonary alveolar proteonosis Anxiety/ Depression Gout GERD DVT ppx - SCDS only due to planned invasive procedure. Attestations Medical Necessity Statement*: Patient will require further hospitalization for management of respiratory distress, pleural effusion, decortication and IV abx. Time Spent in Patient Care: Greater than 35 minutes (>than 50% of time spent in counselling and/or direct pt care on unit). Coding Level of Care Code Acute Process Development Associate for Pam Fwd Diagnoses Acute respiratory failure with hypoxia J96.01 Loculated pleural effusion J90 Pneumonia J18.9 Laterality: bilateral Lung location: lower lobe of lung Pneumonia type: due to unspecified organism Gout M10.9
[2020-04-26 09:46] LABS: Coronavirus Lab Test PTC Negative
[2020-04-26 09:51] LABS: Vancomycin Trough 16.9 ug/mL (10-15)
[2020-04-26] MEDS: chlorhexidine gluconate 4% Btl 118 mL 1 APPLIC TOPICAL (10:07)
[2020-04-26] MEDS: vancomycin 1,250 MG/250 ML PIGGYBACK 200 MG IV ×2 (10:23→20:12)
--- NOTE | 2020-04-26 10:35 | PC.NURSE ---
1015 Received Neg covid results, so removed from isolation and informed patient and .
--- NOTE | 2020-04-26 10:37 | PC.NURSE ---
1030 patient had breakfast at 0800 and changed status to NPO after eating it for surgery at 4pm today.
--- NOTE | 2020-04-26 12:08 | P.ANESASSM_ITS ---
Pre-Anesthetic Assessment Pre-Anesthetic Assessment: Height/Weight: Height 1.78 m Weight 104.326 kg Temp Pulse Resp BP Pulse Ox 97.1 F L 95 25 H 127/78 94 04/26/20 10:00 04/26/20 10:00 04/26/20 10:00 04/26/20 10:00 04/26/20 10:00 Preop Diagnosis: Left-sided pleural effusion Proposed Procedure: Operation Date: 04/26/20 16:00 Proposed Procedures p Thoracotomy with decortication(Left) - Dionte Youngblood MD Was Beta Vance taken within 24 hours: N/A Social: Social History: Tobacco and No alcohol Exam: Pre-Anes Outpt Exam: alert, oriented x 3 and regular rate & rhythm Additional Exam Findings (including area of procedure): Absent BS left anterior chest, rhonchi on right Airway: Submandibular: WNL Cervical ROM: WNL MP: 2 Dentition: Loose Additional comments: Poor dentition, several missing and loose Pulmonary: Pulmonary: COPD CV/HEM: CV/HEM: None reported : : None reported Hepatic: Hepatic: None reported GI: GI: None reported Metabolic: Metabolic: Morbid obesity [place] [facility] [place] reported Neuropsych: Neuropsych: None reported Anesthetic Plan: ASA status: 3 Anesthesia: General Other: A.line, DLETT Risk of > 500 ml blood loss (7ml/kg in children): Yes, adequate IV access and fluids planned Meds/Allergies Current Medications: Current Medications Generic Name Dose Route Start Last Admin Trade Name Freq PRN Reason Stop Dose Admin Hydrocodone Bitart /Acetaminophen 1 tab 04/24/20 16:45 04/24/20 21:26 Hydrocodone-Acet aminophen 5-325 Mg Tablet PO 1 tab Q4H PRN Administration MODERATE TO SEVER E PAIN Albuterol Sulfate 2 puff 04/24/20 20:22 04/26/20 08:35 Albuterol 8 Gm M di INHALATION 2 puff Q4H.RESPIRATORY P RN Administration SHORTNESS OF YARA TH Allopurinol 100 mg 04/25/20 05:00 04/26/20 05:01 Allopurinol 100 Mg Tablet PO 100 mg DAILY@05 MIGNON Administration Chlorhexidine Gluc chelsie 1 applic 04/26/20 09:00 04/26/20 10:07 Chlorhexidine Gl uconate 4% Btl 118 Ml TOPICAL 1 applic BID MIGNON Administration Hydromorphone HCl 2 mg 04/25/20 02:27 04/25/20 06:03 Hydromorphone 4 Mg Tablet PO 2 mg Q6H PRN Administration PAIN Hydromorphone HCl 0.5 mg 04/25/20 09:08 04/26/20 06:37 Hydromorphone 1 Mg/Ml Inj 1 Ml IVP 0.5 mg Q4H PRN Administration SEVERE PAIN Piperacillin Sod/T azobactam 50 mls @ 12.5 mls /hr 04/24/20 19:00 04/26/20 11:55 Sod 3.375 gm/ So dium Chloride IV 12.5 mls/hr Q8H MIGNON Administration Protocol Vancomycin/PEG/NAD A/Lysine/Water 1,250 mg in 250 m ls @ 250 mls/hr 04/24/20 18:00 04/26/20 10:23 Vancocin IV 200 mls/hr Q8H MIGNON Administration Lactated Ringer's 1,000 mls @ 125 m ls/hr 04/26/20 06:30 04/26/20 06:54 Lactated Ringers IV 125 mls/hr .Q8H MIGNON Administration Ketorolac Trometha mine 30 mg 04/25/20 16:00 04/26/20 10:12 Ketorolac 30 Mg/ Ml Inj IVP 04/28/20 15:59 30 mg Q6H MIGNON Administration PFSH Anesthesia PFSH: Medical History (Updated 04/25/20 @ 19:55 by Guillermo King MD) Pulmonary alveolar proteinosis Surgical History (Updated 04/25/20 @ 18:27 by Dionte Youngblood MD) History of lung biopsy Social History Smoking and tobacco status: current every day smoker Data Anesthesia CBC & Chem 7: 04/26/20 02:27 04/26/20 02:27 Other Labs: Laboratory Results - last 48 hr 04/24/20 04/24/20 04/24/20 09:24 09:32 11:18 WBC RBC Hgb Hct MCV MCH MCHC RDW Plt Count MPV Neut % (Auto) Lymph % (Auto) Mills % (Auto) Eos % (Auto) Baso % (Auto) Neut # (Auto) Lymph # (Auto) Mills # (Auto) Eos # (Auto) Baso # (Auto) Nucleated RBC % (auto) Nucleated RBCs # Sodium Potassium Chloride Carbon Dioxide Anion Gap BUN Creatinine GFR Calculation Glucose Calculated Osmolality Calcium Total Bilirubin AST ALT Alkaline Phosphatase Delta Troponin T -0.14 L Troponin T Hi Sens 6Hr Troponin T Hi Sens 6Hr Delta NT-Pro-B Natriuret Pep Total Protein Albumin Globulin Procalcitonin Urine Color Urine Appearance Urine pH Ur Specific [place] Urine Protein Urine Glucose (UA) Urine Ketones Urine Blood Urine Nitrate Urine Bilirubin Urine Urobilinogen Ur Leukocyte Esterase Vancomycin Trough Rheumatoid Factor 46.0 H Nasal/Oral COVID-19 PCR Negative Blood Type Rho(D) Type Antibody Screen Crossmatch 04/24/20 04/24/20 04/25/20 13:14 15:40 04:46 WBC 12.7 H RBC 4.43 Hgb 13.4 Hct 41.6 L MCV 93.9 D MCH 30.2 MCHC 32.2 D RDW 13.8 Plt Count 229 MPV 12.2 H Neut % (Auto) 76.1 Lymph % (Auto) 9.9 Mills % (Auto) 10.1 Eos % (Auto) 3.1 Baso % (Auto) 0.3 Neut # (Auto) 9.70 H Lymph # (Auto) 1.3 Mills # (Auto) 1.3 H Eos # (Auto) 0.4 Baso # (Auto) 0.0 Nucleated RBC % (auto) 0 Nucleated RBCs # 0.0 Sodium Potassium Chloride Carbon Dioxide Anion Gap BUN Creatinine GFR Calculation Glucose Calculated Osmolality Calcium Total Bilirubin AST ALT Alkaline Phosphatase Delta Troponin T Troponin T Hi Sens 6Hr 6.52 Troponin T Hi Sens 6Hr Delta -0.48 L NT-Pro-B Natriuret Pep Total Protein Albumin Globulin Procalcitonin Urine Color Yellow Urine Appearance Clear Urine pH 5 Ur Specific [place] 1.020 Urine Protein Neg Urine Glucose (UA) Norm Urine Ketones Negative Urine Blood Neg Urine Nitrate Negative Urine Bilirubin Neg Urine Urobilinogen Norm Ur Leukocyte Esterase Negative Vancomycin Trough Rheumatoid Factor Nasal/Oral COVID-19 PCR Blood Type Rho(D) Type Antibody Screen Crossmatch 04/25/20 04/25/20 04/26/20 04:46 04:46 02:27 WBC RBC Hgb Hct MCV MCH MCHC RDW Plt Count MPV Neut % (Auto) Lymph % (Auto) Mills % (Auto) Eos % (Auto) Baso % (Auto) Neut # (Auto) Lymph # (Auto) Mills # (Auto) Eos # (Auto) Baso # (Auto) Nucleated RBC % (auto) Nucleated RBCs # Sodium 137 Potassium 4.1 Chloride 98 Carbon Dioxide 25 Anion Gap 18.1 BUN 11 Creatinine 0.9 GFR Calculation 87.9 L Glucose 121 H Calculated Osmolality 285 Calcium 9.4 Total Bilirubin AST ALT Alkaline Phosphatase Delta Troponin T Troponin T Hi Sens 6Hr Troponin T Hi Sens 6Hr Delta NT-Pro-B Natriuret Pep 8 Total Protein Albumin Globulin Procalcitonin 0.61 H Urine Color Urine Appearance Urine pH Ur Specific [place] Urine Protein Urine Glucose (UA) Urine Ketones Urine Blood Urine Nitrate Urine Bilirubin Urine Urobilinogen Ur Leukocyte Esterase Vancomycin Trough 11.1 Rheumatoid Factor Nasal/Oral COVID-19 PCR Blood Type Rho(D) Type Antibody Screen Crossmatch 04/26/20 04/26/20 04/26/20 02:27 02:27 02:27 WBC 10.1 H RBC 4.25 Hgb 13.0 Hct 41.6 L MCV 97.9 H MCH 30.6 MCHC 31.3 RDW 13.7 Plt Count 245 MPV 10.7 H Neut % (Auto) 69.5 Lymph % (Auto) 14.5 Mills % (Auto) 11.6 Eos % (Auto) 3.5 Baso % (Auto) 0.5 Neut # (Auto) 7.04 Lymph # (Auto) 1.5 Mills # (Auto) 1.2 H Eos # (Auto) 0.4 Baso # (Auto) 0.1 Nucleated RBC % (auto) 0 Nucleated RBCs # 0.0 Sodium 133 L Potassium 4.1 Chloride 97 L Carbon Dioxide 25 Anion Gap 15.1 BUN 15 Creatinine 0.9 GFR Calculation 87.9 L Glucose 112 Calculated Osmolality 278 L Calcium 9.2 Total Bilirubin 0.3 AST 16 ALT 24 Alkaline Phosphatase 73 Delta Troponin T Troponin T Hi Sens 6Hr Troponin T Hi Sens 6Hr Delta NT-Pro-B Natriuret Pep Total Protein 6.8 Albumin 3.5 Globulin 3.3 Procalcitonin Urine Color Urine Appearance Urine pH Ur Specific [place] Urine Protein Urine Glucose (UA) Urine Ketones Urine Blood Urine Nitrate Urine Bilirubin Urine Urobilinogen Ur Leukocyte Esterase Vancomycin Trough Rheumatoid Factor Nasal/Oral COVID-19 PCR Blood Type O Positive Rho(D) Type Positive Antibody Screen Negative Crossmatch See Detail 04/26/20 09:07 WBC RBC Hgb Hct MCV MCH MCHC RDW Plt Count MPV Neut % (Auto) Lymph % (Auto) Mills % (Auto) Eos % (Auto) Baso % (Auto) Neut # (Auto) Lymph # (Auto) Mills # (Auto) Eos # (Auto) Baso # (Auto) Nucleated RBC % (auto) Nucleated RBCs # Sodium Potassium Chloride Carbon Dioxide Anion Gap BUN Creatinine GFR Calculation Glucose Calculated Osmolality Calcium Total Bilirubin AST ALT Alkaline Phosphatase Delta Troponin T Troponin T Hi Sens 6Hr Troponin T Hi Sens 6Hr Delta NT-Pro-B Natriuret Pep Total Protein Albumin Globulin Procalcitonin Urine Color Urine Appearance Urine pH Ur Specific [place] Urine Protein Urine Glucose (UA) Urine Ketones Urine Blood Urine Nitrate Urine Bilirubin Urine Urobilinogen Ur Leukocyte Esterase Vancomycin Trough 16.9 H Rheumatoid Factor Nasal/Oral COVID-19 PCR Blood Type Rho(D) Type Antibody Screen Crossmatch Micro: Microbiology 04/24/20 11:18 Blood Culture - Preliminary Blood NEGATIVE TO DATE 04/24/20 09:32 Blood Culture - Preliminary Blood NEGATIVE TO DATE Cardiac Studies: No Data to Display
[2020-04-26 12:52] LABS: Cyclic Citrullinated Peptide <16 UNITS
--- NOTE | 2020-04-26 14:03 | PM.PN ---
Subjective Subjective: Interval history: The patient was seen and examined. He was sitting in a chair. Reports improved chest pain with ketorolac. Chest x-ray obtained this morning revealed worsening loculation and lung entrapment on the left side. The patient is scheduled to undergo decortication 4 PM today. Vitals/I&O/Wt Last Vital Signs Temp 98.3 F 04/26/20 13:00 Pulse 83 04/26/20 13:00 Resp 19 H 04/26/20 13:00 BP 119/77 04/26/20 13:00 Pulse Ox 97 04/26/20 13:00 04/25/20 04/26/20 04/26/20 22:59 06:59 14:59 Intake Total 1180 / 1980 / 1979 300 / 300 Output Total 700 / 1125 500 / 1625 550 / 550 Balance 480 / 855 -500 / 355 -250 / -250 Physical Exam Narrative: EXAM NARRATIVE: General: Patient is awake alert and oriented, in no distress Neck: No JVD Respiratory: Inspection: No visible deformity of the chest wall, scar in the right posterior chest from previous thoracotomy Palpation: Trachea is mildly deviated to the left, reduced expansion in the left chest, reduced vocal fremitus in the same area Percussion: Dull percussion note in the most of the left posterior thorax Auscultation: Reduced breath sound in the posterior hemithorax on the left side, occasional crackles at the right lower lung base, no wheezing or rhonchi Cardiovascular: Regular rate and rhythm, S1-S2 present, no murmur,no peripheral edema. Abdomen: Soft, nontender, nondistended, positive bowel sound Musculoskeletal: No obvious joint deformity Skin: No rash, no evidence of erythema nodosum or multiforme. Neuro: Mental status is normal, no gross cranial nerve deficit, normal motor and coordination. Data : 04/26/20 02:27 04/26/20 02:27 Micro: Microbiology 04/24/20 11:18 Blood Culture - Preliminary Blood NEGATIVE TO DATE 04/24/20 09:32 Blood Culture - Preliminary Blood NEGATIVE TO DATE Attestation for Other Data: I personally reviewed and interpreted the following: Other data: I have reviewed the patient laboratory, microbiologic and radiologic data. All microbiologic studies are negative. The chest x-ray obtained this morning showed worsening lung entrapment, mediastinal shift and loculation. A&P Assessment and plan (1) Empyema: The patient is undergoing decortication today. I have discussed the plan in detail with the patient and his and answered all their questions. Status: Acute (2) Pneumonia: The patient is currently on broad-spectrum antibiotic including anaerobic coverage. Once the patient leaves the hospital, I will follow-up with him. He will need a pulmonary function test. I have also counseled him on using this opportunity to quit smoking completely. Status: Acute Qualifiers: Laterality: bilateral Lung location: lower lobe of lung Pneumonia type: due to unspecified organism Qualified Code(s): J18.9 - Pneumonia, unspecified organism Attestations Medical Necessity Statement*: Will defer to the primary team Coding Level of Care Code Acute Blood Bank Technologist for Pam Zabala Diagnoses Empyema J86.9 Pneumonia J18.9 Laterality: bilateral Lung location: lower lobe of lung Pneumonia type: due to unspecified organism
--- NOTE | 2020-04-26 15:59 | PC.NURSE ---
Surgery personnel here taking patient to surgery. I ask if I should give the 1600 Toradol, they said NO, that they would or it could be given later.
[2020-04-26] MEDS: vancomycin 1,000 MG SDV 2000 MG IRRIGATION (16:44)
--- NOTE | 2020-04-26 18:07 | SUR.OPER ---
164 - Pt's Allison notified of surgery start via her cell phone. 180 - Allison updated on surgery progress and pt status via her cell phone.
--- NOTE | 2020-04-26 18:11 | PC.NURSE ---
1555 To Surgery via bed. waiting in icu waiting room.
--- NOTE | 2020-04-26 18:52 | PC.NURSE ---
1853 Pt still in surgery
--- NOTE | 2020-04-26 18:55 | ANE.PACU2 ---
Inpatient post-anesthesia follow up: Airway intact: Yes Vital signs: Temperature 98.3 F Pulse Rate [Monito r] 101 Pulse Rate 106 Respiratory Rate 18 Blood Pressure [Ri ght Arm] 118/87 Blood Pressure 132/72 Pulse Oximetry 100 Oxygen Delivery Me thod Oxymask Oxygen Flow Rate 3 Fraction of Inspir ed Oxygen Hydration adequate: Yes Nausea and vomiting: No Pain level: 6 Mental status: Altered Additional Comments: Sedated, to ICU on non-rebreather, splinting.
--- NOTE | 2020-04-26 19:35 | P.OP_ITS ---
Operative Report Date of procedure: April 26, 2020 Pre-op Diagnosis: Left-sided pleural effusion with empyema Post-op diagnosis: same Procedure Done: Left thoracotomy with decortication Specimens removed/disposition: Empyema and pleural fluid for microbiology Surgeon: Dionte Youngblood Anesthesia: General Complications: None Findings: Loculated posterior inferior effusion and dense empyema peel over much of the lower lobe anteriorly laterally and inferiorly as well over the diaphragm service and portions of the inferior portion of the left upper lobe Condition: stable Disposition: ICU Brief History: 85-year-old gentleman admitted with a parapneumonic effusion which worsens after admission with subsequent loculated effusion and radiographic evidence of empyema with entrapment of the left lower lobe. Procedure: Mr. Galavn was taken operating room and carefully positioned. Appropriate invasive lines were placed. Double-lumen endotracheal intubation was then performed and confirmed in position. He was placed in the right lateral decubitus position over axillary roll and protective padding. His entire left chest was sterilely prepped and draped. Standard posterior lateral thoracotomy incision was made carried down through subcutaneous tissue down the chest wall with intercostal space was entered. As expected, loculated areas of effusion were identified along with a substantial thick peel encompassing much of the lung, particularly trapping the left lower lobe. In a systematic fa shion, this empyema was removed, initially beginning superiorly and posteriorly and then extending down inferiorly into the fissure and then systematically across the entire lower lobe. There were small parenchymal tears, but these appear to be limited. Empyema was then removed from much of the parietal pleura as well. The diaphragm appeared the bulk of this empyema, particularly posteriorly. Once completed, the entire hemithorax irrigated with large amounts of antibiotic laden solution. Bovie cautery and clips were utilized as required to control bleeding points. Once completed, an anterior and posterior tubes were directed over the diaphragm were then placed. Sponge and needle count were then confirmed to be correct. Chest wall was then reapproximated with interrupted #1 Vicryl suture. Fascia was closed in 2 layers of 0 Vicryl suture. Subtends layer were closed with 2-0 Vicryl suture. Skin was reapproximated in a subcuticular manner with 3-0 Monocryl suture. Sterile dressings were applied. Mr. Galvan was awakened from anesthesia and extubated. He was then transferred to the ICU bed and then taken to ICU for continued recovery. His was counseled at completion of the procedure. We will continue with antibiotic therapy and aggressive pulmonary toilet.
[2020-04-26] MEDS: oxyCODONE-APAP 5-325 mg Tablet PO (20:47)
[2020-04-26] MEDS: diphenhydrAMINE 25 mg Capsule PO (21:39)
[2020-04-27] VITALS (36 sets, daily range): BP systolic 100–185; BP diastolic 61–123; PULSE 84–110; RESP 11–26; TEMP 36.3–36.8; O2SAT 93–99
[2020-04-27] MEDS: lactated ringers 1,000 ML 125 ML IV ×2 (02:11→08:06)
[2020-04-27] MEDS: oxyCODONE-APAP 5-325 mg Tablet PO ×4 (02:12→22:02)
[2020-04-27] MEDS: docusate sodium 100 mg Capsule PO ×2 (02:12→11:04)
[2020-04-27] MEDS: piperacillin-tazobactam 3.375 GM in sodium chloride 0.9% (plus) 50 ML IV ×3 (02:17→19:21)
[2020-04-27] MEDS: vancomycin 1,250 MG/250 ML PIGGYBACK 200 MG IV (03:09)
[2020-04-27 03:40] LABS: Basophils % 0.3 %; Eosinophils # 0.2 10^3/uL (0.0-0.8); Eosinophils % 2.1 %; Hematocrit 35.3 % (42.0-52.0); Hemoglobin 11.6 g/dL (11.7-16.6); Lymphocytes # 1.3 10^3/uL (0.8-4.8); Lymphocytes % 11.4 %; Mean Corpuscular HGB Conc 32.9 g/dL (30.0-36.0); Mean Corpuscular Hemoglobin 30.4 pg (28.0-34.0); Mean Corpuscular Volume 92.4 fL (80-94); Mean Platelet Volume 11.5 fL (7.4-10.4); Monocytes # 0.9 10^3/uL (0.2-0.9); Neutrophils % 77.8 %; Nucleated Red Blood Cells % 0 %; Platelet Count 280 10^3/cmm (130-400); Red Blood Count 3.82 10^6/uL (4.1-5.3); Red Cell Distribution Width 13.5 % (12.1-15.1); White Blood Count 11.5 10^3/uL (4.0-10.0)
[2020-04-27] MEDS: allopurinol 100 mg Tablet PO (04:02)
[2020-04-27] MEDS: ketorolac 30 mg/mL INJ IVP ×4 (04:03→22:08)
[2020-04-27 04:04] LABS: Alanine Aminotransferase 26 U/L (0-41); Alkaline Phosphatase 81 IU/L (40-130); Aspartate Amino Transferase 27 U/L (0-40); Blood Urea Nitrogen 13 mg/dL (6-20); Calcium 8.5 mg/dL (8.5-10.5); Carbon Dioxide 24 mmol/L (22-29); Chloride 99 mmol/L (98-107); Glomerular Filtration Rate 100.7 mL/min (90-130); Glucose 208 mg/dL (65-115); Osmolality Calculated 282 mOsm/kg (285-295); Sodium 133 mmol/L (136-145); Total Bilirubin 0.2 mg/dL (0.15-1.2)
[2020-04-27] MEDS: HYDROmorphone 1 mg/mL INJ 1 mL 0.5 MG IVP ×4 (05:50→19:21)
--- NOTE | 2020-04-27 06:00 | XR_ITS ---
WS: [id number] PORTABLE CHEST HISTORY: POD #1 status post left thoracotomy with decortication COMPARISON: 04/26/2020 2 left-sided chest tubes are identified. One tip terminates over the superior LEFT hilum and a second terminates inferior to the hilum. Better aeration throughout the LEFT lung. Pleural effusion has dec reased. There is still small amount of pleural fluid. No pneumothorax identified. There is a small am ount of subcutaneous air over the LEFT chest wall. Subsegmental atelectasis at the RIGHT lung base. Cardiac size: Moderately enlarged cardiac silhouette. Mediastinum/Aorta: Normal mediastinum. Healed rib fracture in the posterior mid RIGHT thorax. XR/XR chest 1V portable [id number] IMPRESSION: 1. Status post LEFT thoracotomy. 2. 2 left-sided chest tubes are present. No pneumothorax. 3. Moderate improvement in the LEFT pleural effusion.
--- NOTE | 2020-04-27 06:36 | PM.PN ---
Subjective Subjective: Interval history: Postop day #1 status post left thoracotomy decortication. Uneventful night. Reasonable cough effort though does need improvement. Vitals/I&O/Wt Last Vital Signs Temp 97.9 F 04/27/20 05:41 Pulse 92 04/27/20 05:44 Resp 21 H 04/27/20 05:50 BP 110/61 04/27/20 05:41 Pulse Ox 95 04/27/20 05:50 04/26/20 04/26/20 04/27/20 14:59 22:59 06:59 Intake Total 550 / 550 3100 / 3650 1260 / 4910 Output Total 550 / 550 200 / 750 2150 / 2900 Balance 0 / 0 2900 / 2900 -890 2009 Physical Exam Chest: COMMONS NORMALS: normal inspection of the chest (Chest tubes in position. Surgical dressing dry.) and normal palpation of entire chest wall Resp: AUSCULTATION: diminished lung sounds on the left Cardio: COMMON NORMALS: regular rate, regular rhythm, S1 normal heart sound present, No gallops present (Cardio) and No rub (Cardio) RATE: regular rate RHYTHM: regular rhythm HEART SOUNDS: S1 normal heart sound present Extremity: COMMON NORMALS: no clubbing, cyanosis or edema Urinary Catheter Management^: Cannon: Cath Placed During This Visit: yes Reason for Continuing Indwelling Catheter: Perioperative Use in Selected Surgeries Urinary Catheter Date of Insertion: 04/26/20 Urinary Catheter Time of Insertion: 16:20 Data : 04/27/20 02:55 04/27/20 02:55 Micro: Microbiology 04/26/20 17:05 Gram Stain - Final Chest A&P Assessment and plan (1) Empyema: Postop day #1 status post left thoracotomy decortication Plan: Out of bed in chair. Pulmonary toilet. Chest x-ray in a.m. SHAUNA Cannon. Status: Acute Attestations Medical Necessity Statement*: Status post thoracotomy with decortication Time Spent in Patient Care: less than 15 minutes Coding Level of Care Code Acute Disk And Tape Machine Tender for Pam Zabala Diagnoses Empyema J86.9
--- NOTE | 2020-04-27 06:51 | PC.NURSE ---
Removed arterial line from right radial. Applied 10 mins of manual pressure. Pt tolerated well. Dressing clean, dry, and intact before leaving the room.
[2020-04-27] MEDS: pantoprazole DR 40 mg Tablet PO (08:07)
--- NOTE | 2020-04-27 09:04 | PC.NURSE ---
Air leak in [facility] Patient ambulated with PT and nurse. tolerated well. Patient having severe left shoulder pain this AM. patient not able to bear weight on arm. After settling down in chair, nurse noted small air leak in atrium chamber. this was not present earlier this morning upon assessment. Call to physician and updated on patient pain and air leak. no new orders received. Will continue to monitor closely. Pain medication given to patient for pain, see MAR for details.
[2020-04-27] MEDS: lactated ringers 1,000 ML 50 ML IV (09:26)
[2020-04-27] MEDS: vancomycin 1,250 MG/250 ML PIGGYBACK 250 MG IV ×2 (09:34→19:17)
[2020-04-27 13:09] LABS: CENTROMERE B ANTIBODY <1.0 NEG AI (<1.0 NEG); COMPLEMENT COMPONENT C3C 200 mg/dL (82-185); COMPLEMENT COMPONENT C4C 39 mg/dL (15-53); JO-1 ANTIBODY <1.0 NEG AI (<1.0 NEG); RNP ANTIBODY <1.0 NEG AI (<1.0 NEG); SCL-70 ANTIBODY <1.0 NEG AI (<1.0 NEG); SJOGREN'S ANTIBODY (SS-A) <1.0 NEG AI (<1.0 NEG); SM ANTIBODY <1.0 NEG AI (<1.0 NEG); SS-B <1.0 NEG AI (<1.0 NEG)
--- NOTE | 2020-04-27 13:48 | PC.OT ---
OT EVALUATION ATTEMPTED THIS P.M. PATIENT HAS RETURNED TO BE 1 HOUR PRIOR TO ATTEMPT PER NURSING. PATIENT REPORTS UNCOMFORTABLENESS/PAIN DUE TO CHEST TUBE PLACEMENT. PATIENT IS ASKED TO PERFORM SHOULDER SHRUGS AND DECLINES DUE TO PAIN. HE IS ABLE TO USE HIS RIGHT UE TO ASSIST WITH SHOULDER FLEXION ON LEFT. HE REPORTS, I'M NOT JUST GOING TO LIE HERE AND NOT MOVE IT AGREEABLE TO ATTEMPT AT OT EVALUATION TOMORROW.
[2020-04-27 15:14] LABS: COMPLEMENT, TOTAL (CH50) >60 U/mL (31-60)
[2020-04-27] MEDS: bisacodyl 5 mg Tablet PO (15:19)
--- NOTE | 2020-04-27 15:28 | P.PN_ITS ---
Subjective Subjective: Interval history: 55 year old with past medical history of gasteroesophageal reflux disease, anxiety, depression, MRSA cellulites, and pulmonary alveolar proteinosis who presented to hospital with worsening dyspnea as well as left sided chest pain. Patient was initially seen on 04/22/2020 during this time he did have a CTA chest which showed diffuse interstitial and groundglass opacities in the lung compatible with mild pneumonitis. More prominent basilar airspace opacities and air bronchograms were noted concerning for pneumonic infiltrates. Patient did not want to be admitted during which time he was discharged on amoxicillin 500 mg PO TID and Z-pack. He returned to the hospital on 04/24 as he did not show any improvement. Laboratory work up on return to ER showed a WBC of 16.8, hemoglobin of 14.6, hematocrit of 43.1 and a platelet count of 234. Sodium of 132, potassium of 4.1, chloride of 97, bicarbonate of 20, BUN of 10 and a creatinine of 0.8. Procalcitonin of 0.86. Patient was started of Vancomycin and zosyn. CT chest/abdomen/pelvis was performed which showed worsening atelectasis of the left lower lobe/lingual with increasing interstitial infiltrates in the upper lobes. Also noted to have worsening atelectasis in the right middle lobe with scattered right lung interstitial infiltrates. Increasing loculated left pleural effusion was also seen. Subjective 04/25/2020 Patient was continued on supplemental o2 at 3L via NC. Did have significant desaturation with exertion. No fever or chills, Denied nausea, vomiting or abdominal pain. Patient did have attempted thoracentesis with pulmonary medicine however due to significant effusion with loculation CTS was consulted. 04/26/2020 No new clinical events overnight. No fever, or chills, no nausea or vomiting. Awaiting surgery 04/27/2020 Complaining of left chest wall and shoulder pain. Chest tube in place. Afebrile, no nausea or vomiting. Vitals/I&O/Wt Last Vital Signs Temp 97.9 F 04/27/20 14:00 Pulse 85 04/27/20 14:00 Resp 23 H 04/27/20 15:19 BP 124/91 04/27/20 14:00 Pulse Ox 98 04/27/20 15:19 04/27/20 04/27/20 04/27/20 06:59 14:59 22:59 Intake Total 1310 / 4960 1900.583 / 1900.583 50 / 1950.583 Output Total 2150 / 2900 240 / 240 Balance -840 / 2060 1660.583 / 1660.583 50 / 1710.583 Physical Exam Narrative: EXAM NARRATIVE: General : alert, awake, no distress. HEENT : Grossly unremarkable CVS: NSR CHEST : non-labored respiration on 5L of o2 via NC, Left sided chest tube in place. ABD : Nondistended. Ext : no edema Urinary Catheter Management^: Cannon: Cath Placed During This Visit: yes Reason for Continuing Indwelling Catheter: Perioperative Use in Selected Surgeries Urinary Catheter Date of Insertion: 04/26/20 Urinary Catheter Time of Insertion: 16:20 Data : 04/27/20 02:55 04/27/20 02:55 Micro: Microbiology 04/26/20 17:05 Gram Stain - Final Chest A&P Assessment and plan (1) Acute respiratory failure with hypoxia: Status: Acute (2) Loculated pleural effusion: Status: Acute (3) Pneumonia: Status: Acute Qualifiers: Laterality: bilateral Lung location: lower lobe of lung Pneumonia type: due to unspecified organism Qualified Code(s): J18.9 - Pneumonia, unspecified organism (4) Gout: Status: Acute Acute hypoxic respiratory failure due to multi-focal pneumonia with increasing loculated pleural effusion - POD# 1 status post left thoracotomy decortication - Continue supplemental o2 as needed. - Pulmonary on board / CTS on board - Vancomycin pharmacy to dose - Zosyn 3.375g IV q8hr - Follow up on final OR cultures - ngtd - Continue albuterol/atrovent - COVID-19 PCR negative - RF positive - Will follow on additional rheum work up - Pain control - Chest tube in place to suction - Management per CTS Additional medical history Pulmonary alveolar proteonosis Anxiety/ Depression Gout GERD DVT ppx - SCDS only due to planned invasive procedure. Attestations Medical Necessity Statement*: patient require further hospitalization for management of pneumonia, parapneumonic effusion status post decortication and ch est tube. Time Spent in Patient Care: Greater than 35 minutes (>than 50% of time spent in counselling and/or direct pt care on unit) . Coding Level of Care Code Acute Masonry Installer for Pam Zabala Diagnoses Acute respiratory failure with hypoxia J96.01 Loculated pleural effusion J90 Pneumonia J18.9 Laterality: bilateral Lung location: lower lobe of lung Pneumonia type: due to unspecified organism Gout M10.9
--- NOTE | 2020-04-27 17:30 | PC.NURSE ---
attempted to have BM patient felt the need to have BM. bedside commode brought in room. patient attempted to go but was not successful. patient ambulated to chair after attempt. significantly much better movement made by patient than earlier this morning. patient stating that he is feeling a little better on his feet. oxygen decreased to 2L.
[2020-04-27] MEDS: labetalol 5 mg/mL SDV 20mL IVP (22:15)
[2020-04-28] VITALS (33 sets, daily range): BP systolic 125–161; BP diastolic 79–105; PULSE 82–103; RESP 11–22; TEMP 36.2–37.1; O2SAT 92–98
[2020-04-28] MEDS: piperacillin-tazobactam 3.375 GM in sodium chloride 0.9% (plus) 50 ML IV ×3 (02:41→19:26)
[2020-04-28] MEDS: vancomycin 1,250 MG/250 ML PIGGYBACK 250 MG IV ×2 (02:41→11:55)
[2020-04-28 04:00] LABS: Basophils # 0.1 10^3/uL (0.0-0.1); Basophils % 0.7 %; Eosinophils # 0.7 10^3/uL (0.0-0.8); Eosinophils % 6.6 %; Hematocrit 34.2 % (42.0-52.0); Lymphocytes # 1.7 10^3/uL (0.8-4.8); Lymphocytes % 14.9 %; Mean Corpuscular HGB Conc 32.2 g/dL (30.0-36.0); Mean Corpuscular Hemoglobin 30.1 pg (28.0-34.0); Mean Corpuscular Volume 93.7 fL (80-94); Mean Platelet Volume 11.6 fL (7.4-10.4); Monocytes # 1.1 10^3/uL (0.2-0.9); Monocytes % 9.7 %; Neutrophils # 7.48 10^3/uL (1.8-7.7); Neutrophils % 67.8 %; Nucleated Red Blood Cells % 0 %; Platelet Count 299 10^3/cmm (130-400); Red Blood Count 3.65 10^6/uL (4.1-5.3); Red Cell Distribution Width 13.7 % (12.1-15.1)
[2020-04-28 04:17] LABS: Alanine Aminotransferase 28 U/L (0-41); Albumin Level 2.9 g/dL (3.5-5.2); Alkaline Phosphatase 85 IU/L (40-130); Aspartate Amino Transferase 29 U/L (0-40); Blood Urea Nitrogen 11 mg/dL (6-20); Calcium 8.8 mg/dL (8.5-10.5); Carbon Dioxide 27 mmol/L (22-29); Chloride 101 mmol/L (98-107); Globulin 3.2 g/dL (1.3-4.6); Glomerular Filtration Rate 100.7 mL/min (90-130); Glucose 124 mg/dL (65-115); Osmolality Calculated 283 mOsm/kg (285-295); Sodium 136 mmol/L (136-145); Total Bilirubin 0.2 mg/dL (0.15-1.2); Total Protein 6.1 g/dL (6.6-8.7)
[2020-04-28] MEDS: ketorolac 30 mg/mL INJ IVP ×2 (04:39→09:12)
[2020-04-28] MEDS: lactated ringers 1,000 ML 50 ML IV (04:39)
--- NOTE | 2020-04-28 06:00 | XR_ITS ---
WS: [id number] XR chest 1V portable [id number] REASON FOR EXAM: POD #2 status post decortication FINDINGS: The chest is relatively unchanged compared to the previous day. There are 2 large bore chest tubes in place in the left hemithorax. The left lung appears fully inflated. There are atelectatic and consol idative changes in both lung bases. XR/XR chest 1V portable [id number] IMPRESSION: Stable abnormal chest.
--- NOTE | 2020-04-28 06:22 | PM.PN ---
Subjective Subjective: Interval history: POD #2 status post left thoracotomy and decortication. Chest tube output 190 cc past 24 hours. No air leak. Chest x-ray continues to improve. Thoracotomy discomfort modestly improved. Vitals/I&O/Wt Last Vital Signs Temp 98.7 F 04/28/20 04:00 Pulse 98 04/28/20 05:48 Resp 16 04/28/20 05:48 BP 145/86 04/28/20 04:00 Pulse Ox 94 04/28/20 05:48 04/27/20 04/27/20 04/28/20 14:59 22:59 06:59 Intake Total 1900.583 / 1900.583 660 / 2560.583 1250.833 / 3811.416 Output Total 240 / 240 350 / 590 1450 / 2040 Balance 1660.583 / 1660.583 310 / 1970.583 -199.167 / 1771.416 Physical Exam Chest: COMMONS NORMALS: normal inspection of the chest (Surgical dressings dry.) and normal palpation of entire chest wall Resp: OTHER: Right side remains clear. Improving breath sounds in the left mid and lower lung mcclain laterally. Cardio: COMMON NORMALS: regular rate, regular rhythm, S1 normal heart sound present, No gallops present (Cardio) and No murmurs present (Cardio) RATE: regular rate RHYTHM: regular rhythm HEART SOUNDS: S1 normal heart sound present Extremity: COMMON NORMALS: no clubbing, cyanosis or edema Urinary Catheter Management^: Cannon: Cath Placed During This Visit: yes Reason for Continuing Indwelling Catheter: Perioperative Use in Selected Surgeries Urinary Catheter Date of Insertion: 04/26/20 Urinary Catheter Time of Insertion: 16:20 Data : 04/28/20 03:07 04/28/20 03:07 A&P Assessment and plan (1) Loculated pleural effusion: POD #2. Improving radiographic picture. Plan: Chest tube to waterseal. Prophylactic Lovenox. Out of bed in chair. DC Cannon catheter. Chest x-ray in a.m. Status: Acute Attestations Medical Necessity Statement*: POD #2 status post thoracotomy and decortication due to loculated effusion with empyema Time Spent in Patient Care: less than 15 minutes Coding Level of Care Code Acute Car Lot Attendant for [facility] Fwmaryjane Diagnoses Loculated pleural effusion J90
[2020-04-28] MEDS: enoxaparin 40 mg/0.4 mL Syringe SUBCUT (06:40)
[2020-04-28] MEDS: HYDROmorphone 1 mg/mL INJ 1 mL 0.5 MG IVP ×2 (07:30→19:27)
[2020-04-28] MEDS: HYDROcodone-acetaminophen 5-325 mg Tablet 1 TAB PO ×2 (08:04→13:02)
[2020-04-28] MEDS: pantoprazole DR 40 mg Tablet PO (09:11)
[2020-04-28] MEDS: allopurinol 100 mg Tablet PO (09:12)
[2020-04-28] MEDS: oxyCODONE-APAP 5-325 mg Tablet PO ×4 (10:15→22:06)
[2020-04-28 10:18] LABS: ANCA Interp Negative (Negative)
--- NOTE | 2020-04-28 14:14 | P.PN_ITS ---
Subjective Subjective: Interval history: 55 year old with past medical history of gasteroesophageal reflux disease, anxiety, depression, MRSA cellulites, and pulmonary alveolar proteinosis who presented to hospital with worsening dyspnea as well as left sided chest pain. Patient was initially seen on 04/22/2020 during this time he did have a CTA chest which showed diffuse interstitial and groundglass opacities in the lung compatible with mild pneumonitis. More prominent basilar airspace opacities and air bronchograms were noted concerning for pneumonic infiltrates. Patient did not want to be admitted during which time he was discharged on amoxicillin 500 mg PO TID and Z-pack. He returned to the hospital on 04/24 as he did not show any improvement. Laboratory work up on return to ER showed a WBC of 16.8, hemoglobin of 14.6, hematocrit of 43.1 and a platelet count of 234. Sodium of 132, potassium of 4.1, chloride of 97, bicarbonate of 20, BUN of 10 and a creatinine of 0.8. Procalcitonin of 0.86. Patient was started of Vancomycin and zosyn. CT chest/abdomen/pelvis was performed which showed worsening atelectasis of the left lower lobe/lingual with increasing interstitial infiltrates in the upper lobes. Also noted to have worsening atelectasis in the right middle lobe with scattered right lung interstitial infiltrates. Increasing loculated left pleural effusion was also seen. Subjective 04/25/2020 Patient was continued on supplemental o2 at 3L via NC. Did have significant desaturation with exertion. No fever or chills, Denied nausea, vomiting or abdominal pain. Patient did have attempted thoracentesis with pulmonary medicine however due to significant effusion with loculation CTS was consulted. 04/26/2020 No new clinical events overnight. No fever, or chills, no nausea or vomiting. Awaiting surgery 04/27/2020 Complaining of left chest wall and shoulder pain. Chest tube in place. Afebrile, no nausea or vomiting. 05/08/2020 Doing well overnight. Pain improved. Chest tube in place. No air leak. No fever, chills, nausea or vomiting. Vitals/I&O/Wt Last Vital Signs Temp 97.1 F L 04/28/20 08:00 Pulse 82 04/28/20 12:00 Resp 13 04/28/20 12:00 BP 151/87 04/28/20 12:00 Pulse Ox 95 04/28/20 12:00 04/27/20 04/28/20 04/28/20 22:59 06:59 14:59 Intake Total 660 / 2560.583 1550.833 / 4111.416 700 / 700 Output Total 350 / 590 1450 / 2040 Balance 310 / 1970.583 100.833 / 2071.416 700 / 700 Physical Exam Narrative: EXAM NARRATIVE: General : alert, awake, no distress. HEENT : Grossly unremarkable CVS: NSR CHEST : non-labored respiration on 5L of o2 via NC, Left sided chest tube in place. ABD : Nondistended. Ext : no edema Urinary Catheter Management^: Cannon: Cath Placed During This Visit: yes Reason for Continuing Indwelling Catheter: Perioperative Use in Selected Surgeries Urinary Catheter Date of Insertion: 04/26/20 Urinary Catheter Time of Insertion: 16:20 Data : 04/28/20 03:07 04/28/20 03:07 Micro: Microbiology 04/26/20 17:05 Gram Stain - Final Chest Wound Culture - Preliminary A&P Assessment and plan (1) Acute respiratory failure with hypoxia: Status: Acute (2) Loculated pleural effusion: Status: Acute (3) Pneumonia: Status: Acute Qualifiers: Laterality: bilateral Lung location: lower lobe of lung Pneumonia type: due to unspecified organism Qualified Code(s): J18.9 - Pneumonia, unspecified organism (4) Gout: Status: Acute Acute hypoxic respiratory failure due to multi-focal pneumonia with increasing loculated pleural effusion - POD# 2 status post left thoracotomy decortication - Continue supplemental o2 as needed. - Pulmonary on board / CTS on board - Blood culture - No growth - Pleural fluid culture OR- NGTD - Remains afebrile - Will stop Vancomycin - Continue Zosyn 3.375g IV q8hr - Will check pro-calcitonin in am - Continue albuterol/atrovent - COVID-19 PCR negative - D/C IVF - Pain control - Chest tube in place to suction - Management per CTS RF Positive - Will follow up outpatient with Rheum. - May consider bilateral hand/feet xray - Follow up on remainder of autoimmune work up Additional medical history Pulmonary alveolar proteonosis Anxiety/ Depression Gout GERD DVT ppx - SCDS only due to planned invasive procedure. Attestations Medical Necessity Statement*: Will require further hospitalization for management of chest tube and IV antibiotics Time Spent in Patient Care: Greater than 35 minutes (>than 50% of time spe nt in counselling and/or direct pt care on unit) . 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
[2020-04-28 14:28] LABS: THYROID PEROXIDASE ANTIBODIES 2 IU/mL (<9)
[2020-04-28 14:59] LABS: ANA SCREEN, IFA NEGATIVE (NEGATIVE)
--- NOTE | 2020-04-28 16:54 | PC.NURSE ---
Pain PRN pain medication has been given multiple times this shift. Patient states he thinks the pain will be relieved when the chest tube is removed.
[2020-04-28] MEDS: diphenhydrAMINE 25 mg Capsule PO (20:56)
[2020-04-29] VITALS (32 sets, daily range): BP systolic 130–165; BP diastolic 82–109; PULSE 77–107; RESP 13–23; TEMP 36–37.1; O2SAT 90–95
[2020-04-29] MEDS: labetalol 5 mg/mL SDV 20mL IVP (00:12)
[2020-04-29 00:58] LABS: DNA AB (DS) CRITHIDIA,IFA NEGATIVE (NEGATIVE)
[2020-04-29] MEDS: oxyCODONE-APAP 5-325 mg Tablet PO ×4 (03:03→19:38)
[2020-04-29] MEDS: piperacillin-tazobactam 3.375 GM in sodium chloride 0.9% (plus) 50 ML IV ×3 (03:03→18:18)
[2020-04-29 04:20] LABS: Basophils # 0.1 10^3/uL (0.0-0.1); Basophils % 0.6 %; Eosinophils # 0.7 10^3/uL (0.0-0.8); Eosinophils % 6.8 %; Hematocrit 38.2 % (42.0-52.0); Hemoglobin 12.4 g/dL (11.7-16.6); Lymphocytes # 1.7 10^3/uL (0.8-4.8); Lymphocytes % 16.2 %; Mean Corpuscular HGB Conc 32.5 g/dL (30.0-36.0); Mean Corpuscular Hemoglobin 30.4 pg (28.0-34.0); Mean Corpuscular Volume 93.6 fL (80-94); Mean Platelet Volume 11.8 fL (7.4-10.4); Monocytes # 0.9 10^3/uL (0.2-0.9); Neutrophils # 6.84 10^3/uL (1.8-7.7); Neutrophils % 66.5 %; Nucleated Red Blood Cells % 0 %; Platelet Count 321 10^3/cmm (130-400); Red Blood Count 4.08 10^6/uL (4.1-5.3); Red Cell Distribution Width 13.7 % (12.1-15.1); White Blood Count 10.3 10^3/uL (4.0-10.0)
[2020-04-29 04:47] LABS: Alanine Aminotransferase 32 U/L (0-41); Albumin Level 3.3 g/dL (3.5-5.2); Alkaline Phosphatase 87 IU/L (40-130); Aspartate Amino Transferase 30 U/L (0-40); Blood Urea Nitrogen 14 mg/dL (6-20); Calcium 9.1 mg/dL (8.5-10.5); Carbon Dioxide 27 mmol/L (22-29); Chloride 98 mmol/L (98-107); Globulin 2.8 g/dL (1.3-4.6); Glomerular Filtration Rate 100.7 mL/min (90-130); Glucose 101 mg/dL (65-115); Osmolality Calculated 285 mOsm/kg (285-295); Procalcitonin 0.17 ng/mL (0-0.5); Sodium 137 mmol/L (136-145); Total Bilirubin 0.2 mg/dL (0.15-1.2); Total Protein 6.1 g/dL (6.6-8.7)
[2020-04-29 05:32] LABS: Anion Gap 16.4 (5-19); Potassium 4.4 mmol/L (3.5-5.1)
[2020-04-29] MEDS: enoxaparin 40 mg/0.4 mL Syringe SUBCUT (05:47)
[2020-04-29] MEDS: HYDROmorphone 1 mg/mL INJ 1 mL 0.5 MG IVP (05:47)
--- NOTE | 2020-04-29 06:00 | XR_ITS ---
WS: [id number] XR chest 1V portable [id number] REASON FOR EXAM: POD #3 status post decortication FINDINGS: The chest appears unchanged compared to 04/28/2020. [address] in [address] in the left hemith orax. There is no pneumothorax. There is consolidative and atelectatic density in the left lower lung . The right lung remains relatively clear. XR/XR chest 1V portable [id number] IMPRESSION: Stable chest.
--- NOTE | 2020-04-29 08:38 | PM.PN ---
Subjective Subjective: Interval history: Day #3 status post left decortication. Low chest tube output. No air leak. Mr. Galvan looks quite good today. Thoracotomy discomfort under better control. He is performing pulmonary toilet well. Vitals/I&O/Wt Last Vital Signs Temp 98.6 F 04/29/20 04:00 Pulse 97 04/29/20 07:00 Resp 23 H 04/29/20 07:00 BP 147/109 04/29/20 07:00 Pulse Ox 91 04/29/20 07:00 04/28/20 04/29/20 04/29/20 22:59 06:59 14:59 Intake Total 50 / 1080 50 / 1130 Output Total 870 / 870 910 / 1780 250 / 250 Balance -820 / 210 -860 / -650 -250 / -250 Physical Exam Chest: COMMONS NORMALS: normal inspection of the chest (Surgical dressings dry. Incision line intact.) Resp: COMMON NORMALS: normal respiratory effort and No retractions EFFORT & INSPECTION: Yes able to speak in complete sentences OTHER: Improving aeration and breath sounds to the left lower lobe posteriorly and laterally. Cardio: COMMON NORMALS: regular rate, regular rhythm and S1 normal heart sound present RATE: regular rate RHYTHM: regular rhythm HEART SOUNDS: S1 normal heart sound present Extremity: COMMON NORMALS: no clubbing, cyanosis or edema Urinary Catheter Management^: Cannon: Cath Placed During This Visit: yes Reason for Continuing Indwelling Catheter: Perioperative Use in Selected Surgeries Urinary Catheter Date of Insertion: 04/26/20 Urinary Catheter Time of Insertion: 16:20 Data : 04/29/20 03:25 04/29/20 03:25 Micro: Microbiology 04/26/20 17:05 Gram Stain - Final Chest Anaerobic Culture - Preliminary Wound Culture - Preliminary A&P Assessment and plan (1) Empyema: Needs to improve well. I will remove chest tubes later today. Status: Acute Attestations Medical Necessity Statement*: Status post decortication due to empyema Time Spent in Patient Care: less than 15 minutes Coding Level of Care Code Acute Canal Tender for Pam Zabala Diagnoses Empyema J86.9
[2020-04-29] MEDS: chlorhexidine gluconate 4% Btl 118 mL 1 APPLIC TOPICAL (09:20)
[2020-04-29] MEDS: pantoprazole DR 40 mg Tablet PO (09:20)
[2020-04-29] MEDS: allopurinol 100 mg Tablet PO (09:20)
--- NOTE | 2020-04-29 09:44 | PC.NURSE ---
up in room no distress at this time . chest tube intact.
--- NOTE | 2020-04-29 13:07 | XR_ITS ---
WS: [id number] XR hand LT 2V [id number] REASON FOR EXAM: RF FINDINGS: An spaces of the left hand are relatively well-preserved. No fracture or other focal bony lesion. No bony erosion. No soft tissue abnormality. XR/XR hand LT 2V [id number] IMPRESSION: No significant abnormality.
--- NOTE | 2020-04-29 13:07 | XR_ITS ---
WS: [id number] XR foot RT 2V [id number] REASON FOR EXAM: rf FINDINGS: Mild narrowing of the right metatarsal phalangeal joint with subchondral sclerosis. Mild hallux valgu s deformity however the images nonweightbearing. Similar configuration is seen in the metatarsal phalangeal joints of the remaining toes but again, th is is nonweightbearing. The joint spaces are well preserved and there are no erosions or other focal bony abnormality. No soft tissue abnormality. 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
--- NOTE | 2020-04-29 13:07 | XR_ITS ---
WS: [id number] XR hand RT 2V [id number] REASON FOR EXAM: RF FINDINGS: Joint spaces of the right hand are relatively well preserved. No fracture or other focal bony abnormality. No bony erosions. No soft tissue abnormality. XR/XR hand RT 2V [id number] IMPRESSION: No significant abnormality.
--- NOTE | 2020-04-29 13:07 | XR_ITS ---
WS: [id number] XR foot LT 2V [id number] REASON FOR EXAM: rf FINDINGS: There is mild narrowing of the left great toe metatarsal phalangeal joint with subchondral sclerosis. There is a mild hallux valgus deformity however this is not a weightbearing image. Similar configura tion is seen at the metatarsophalangeal joints of the other toes as well, again this is nonweightbear ing. The joint spaces are well preserved. There are no fractures or focal bony lesions. No bony erosions. There is no soft tissue abnormality. XR/XR foot LT 2V [id number] IMPRESSION: Osteoarthropathy in the great toe as above.
--- NOTE | 2020-04-29 13:08 | P.PN_ITS ---
Subjective Subjective: Interval history: 55 year old with past medical history of gasteroesophageal reflux disease, anxiety, depression, MRSA cellulites, and pulmonary alveolar proteinosis who presented to hospital with worsening dyspnea as well as left sided chest pain. Patient was initially seen on 04/22/2020 during this time he did have a CTA chest which showed diffuse interstitial and groundglass opacities in the lung compatible with mild pneumonitis. More prominent basilar airspace opacities and air bronchograms were noted concerning for pneumonic infiltrates. Patient did not want to be admitted during which time he was discharged on amoxicillin 500 mg PO TID and Z-pack. He returned to the hospital on 04/24 as he did not show any improvement. Laboratory work up on return to ER showed a WBC of 16.8, hemoglobin of 14.6, hematocrit of 43.1 and a platelet count of 234. Sodium of 132, potassium of 4.1, chloride of 97, bicarbonate of 20, BUN of 10 and a creatinine of 0.8. Procalcitonin of 0.86. Patient was started of Vancomycin and zosyn. CT chest/abdomen/pelvis was performed which showed worsening atelectasis of the left lower lobe/lingual with increasing interstitial infiltrates in the upper lobes. Also noted to have worsening atelectasis in the right middle lobe with scattered right lung interstitial infiltrates. Increasing loculated left pleural effusion was also seen. Subjective 04/25/2020 Patient was continued on supplemental o2 at 3L via NC. Did have significant desaturation with exertion. No fever or chills, Denied nausea, vomiting or abdominal pain. Patient did have attempted thoracentesis with pulmonary medicine however due to significant effusion with loculation CTS was consulted. 04/26/2020 No new clinical events overnight. No fever, or chills, no nausea or vomiting. Awaiting surgery 04/27/2020 Complaining of left chest wall and shoulder pain. Chest tube in place. Afebrile, no nausea or vomiting. 04/28/2020 Doing well overnight. Pain improved. Chest tube in place. No air leak. No fever, chills, nausea or vomiting. 04/29/2020 No new clinical events overnight. Feeling much better today. No fever or chills. Anticipate chest tube removal today. Vitals/I&O/Wt Last Vital Signs Temp 96.8 F L 04/29/20 11:00 Pulse 93 04/29/20 11:00 Resp 18 12/11/20 11:47 BP 134/85 04/29/20 11:00 Pulse Ox 95 04/29/20 11:00 04/28/20 04/29/20 04/29/20 22:59 06:59 14:59 Intake Total 50 / 1080 50 / 1130 450 / 450 Output Total 870 / 870 910 / 1780 550 / 550 Balance -820 / 210 -860 / -650 -100 / -100 Physical Exam Narrative: EXAM NARRATIVE: General : alert, awake, no distress. HEENT : Grossly unremarkable CVS: NSR CHEST : non-labored respiration on RA. ABD : Nondistended. Ext : no edema Urinary Catheter Management^: Cannon: Cath Placed During This Visit: yes Reason for Continuing Indwelling Catheter: Perioperative Use in Selected Surgeries Urinary Catheter Date of Insertion: 04/26/20 Urinary Catheter Time of Insertion: 16:20 Data : 04/29/20 03:25 04/29/20 03:25 Micro: Microbiology 04/26/20 17:05 Gram Stain - Final Chest Anaerobic Culture - Preliminary Wound Culture - Preliminary 04/24/20 11:18 Blood Culture - Final Blood NO GROWTH AFTER 5 DAYS 04/24/20 09:32 Blood Culture - Final Blood NO GROWTH AFTER 5 DAYS A&P Assessment and plan (1) Acute respiratory failure with hypoxia: Status: Acute (2) Loculated pleural effusion: Status: Acute (3) Pneumonia: Status: Acute Qualifiers: Laterality: bilateral Lung location: lower lobe of lung Pneumonia type: due to unspecified organism Qualified Code(s): J18.9 - Pneumonia, unspecified organism (4) Gout: Status: Acute Acute hypoxic respiratory failure due to multi-focal pneumonia with increasing loculated pleural effusion - POD# 3 status post left thoracotomy decortication - Continue supplemental o2 as needed. - Pulmonary on board / CTS on board - Blood culture - No growth - Pleural fluid culture OR- NGTD - Remains afebrile - Will stop Vancomycin - Continue Zosyn 3.375g IV q8hr - Pro-calcitonin 0.86 on admission - > 0.17 - Continue albuterol/atrovent - COVID-19 PCR negative - Pain control - Chest tube to be removed today RF Positive - Will follow up outpatient with Rheum. - Bilateral hand/feet xray per rhe recommendation - Follow up on remainder of autoimmune work up Additional medical history Pulmonary alveolar proteonosis Anxiety/ Depression Gout GERD DVT ppx - SCDS only due to planned invasive procedure. Attestations Medical Necessity Statement*: Will require further hospitalization for management of post op decortication, empyema, on IV abx. Time Spent in Patient Care: Greater than 35 minutes (>than 50% of time spent in counselling and/or direct pt care on unit) . 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
--- NOTE | 2020-04-29 15:33 | PC.OT ---
OT THERAPY ATTEMPTED IN A.M.; CHEST TUBES REMAIN BUT ARE TO COME OUT TODAY. HOLD UNTIL P.M. OT THERAPY ATTEMPTED TWICE IN P.M.; CHEST TUBES REMOVED BUT PATIENT SLEEPING AT FIRST ATTEMPT AND NURSE ASKS US TO WAIT. 2ND ATTEMPT; PATIENT IN TOO MUCH PAIN. NURSING REQUESTS HOLD UNTIL TOMORROW.
--- NOTE | 2020-04-29 20:42 | PC.NURSE ---
Patient resting in bed with eyes open. Patient is a&ox4. Patient did voice pain and PRN pain mediation was given per orders. Patient does use pillow to splint when coughing. Call light within reach. Continue care.
[2020-04-29] MEDS: albuterol 8 gm MDI 2 PUFF INHALATION (21:50)
[2020-04-30] VITALS (14 sets, daily range): BP systolic 121–153; BP diastolic 71–99; PULSE 77–96; RESP 12–20; TEMP 36.7–36.8; O2SAT 90–98
[2020-04-30] MEDS: piperacillin-tazobactam 3.375 GM in sodium chloride 0.9% (plus) 50 ML IV ×2 (02:13→11:42)
--- NOTE | 2020-04-30 02:26 | PC.NURSE ---
Patient resting soundly in room with eyes closed. Patient denies any pain at this time. Call light is within reach. Continue care.
[2020-04-30] MEDS: oxyCODONE-APAP 5-325 mg Tablet PO ×3 (03:48→13:37)
[2020-04-30 04:51] LABS: Basophils # 0.1 10^3/uL (0.0-0.1); Basophils % 0.8 %; Eosinophils # 0.7 10^3/uL (0.0-0.8); Eosinophils % 6.6 %; Hematocrit 37.6 % (42.0-52.0); Hemoglobin 12.1 g/dL (11.7-16.6); Lymphocytes # 1.8 10^3/uL (0.8-4.8); Lymphocytes % 18.1 %; Mean Corpuscular HGB Conc 32.2 g/dL (30.0-36.0); Mean Corpuscular Volume 93.3 fL (80-94); Mean Platelet Volume 11.1 fL (7.4-10.4); Monocytes # 0.9 10^3/uL (0.2-0.9); Monocytes % 9.1 %; Neutrophils # 6.49 10^3/uL (1.8-7.7); Neutrophils % 63.8 %; Nucleated Red Blood Cells % 0 %; Platelet Count 420 10^3/cmm (130-400); Red Blood Count 4.03 10^6/uL (4.1-5.3); Red Cell Distribution Width 13.5 % (12.1-15.1); White Blood Count 10.2 10^3/uL (4.0-10.0)
[2020-04-30 05:16] LABS: Alanine Aminotransferase 36 U/L (0-41); Albumin Level 3.2 g/dL (3.5-5.2); Alkaline Phosphatase 85 IU/L (40-130); Anion Gap 16.3 (5-19); Aspartate Amino Transferase 28 U/L (0-40); Blood Urea Nitrogen 14 mg/dL (6-20); Calcium 9.6 mg/dL (8.5-10.5); Carbon Dioxide 25 mmol/L (22-29); Chloride 100 mmol/L (98-107); Globulin 3.8 g/dL (1.3-4.6); Glomerular Filtration Rate 100.7 mL/min (90-130); Glucose 110 mg/dL (65-115); Osmolality Calculated 285 mOsm/kg (285-295); Potassium 4.3 mmol/L (3.5-5.1); Sodium 137 mmol/L (136-145); Total Bilirubin 0.2 mg/dL (0.15-1.2)
[2020-04-30] MEDS: enoxaparin 40 mg/0.4 mL Syringe SUBCUT (05:44)
--- NOTE | 2020-04-30 05:58 | PC.NURSE ---
Uneventful shift: Patient rested soundly with no s/s of distress or complaints. Compliant with cares and staff. Call light within reach. Continue care.
--- NOTE | 2020-04-30 08:30 | PC.NURSE ---
Pain rating is now down to a 3 in the left side, back and shoulder after giving the prn oxycodone. unable to reassess on MAR
--- NOTE | 2020-04-30 09:21 | XRR_ITS ---
PROCEDURE INFORMATION: Exam: XR Chest, 1 View Exam date and time: 04/30/2020 11:25 AM Age: 55 years old Clinical indication: Device placement; Chest tube; Additional info: Status post decortication. Chest tubes removed. TECHNIQUE: Imaging protocol: XR of the chest Views: 1 view. COMPARISON: CR XR chest 1V portable [id number] 04/29/2020 5:12 AM FINDINGS: Lungs: Low lung volumes are seen. There is atelectasis in the left lower lobe. No consolidation. Pleural space: Unremarkable. No pleural effusion. No pneumothorax. Heart/Mediastinum: Unremarkable. No cardiomegaly. Bones/joints: Chronic fracture right 7th posterior rib stable since prior Previously present chest tube in the left lung has now been removed. Multiple metallic annita are seen in the left lower chest stable since prior XR/XR chest 1V portable [id number] IMPRESSION: 1. Low lung volumes seen. 2. Left lower lobe atelectasis. 3. Metallic annita in the left lower chest wall 4. Left lung chest tube has been removed 5. Chronic right 7th rib fracture
--- NOTE | 2020-04-30 09:23 | P.PN_ITS ---
Subjective Subjective: Interval history: Looks very good. Up in chair. Pulling 1500 cc on incentive spirometry. No chest x-ray was obtained this morning. Afebrile. White count 10,000. I removed chest tube yesterday. Vitals/I&O/Wt Last Vital Signs Temp 98.3 F 04/30/20 02:00 Pulse 96 04/30/20 08:00 Resp 12 04/30/20 08:00 BP 152/99 04/30/20 08:00 Pulse Ox 94 04/30/20 08:00 04/29/20 04/30/20 04/30/20 22:59 06:59 14:59 Intake Total 520 / 1210 30 / 1240 360 / 360 Output Total 800 / 1600 1500 / 3100 650 / 650 Balance -280 / -390 -1470 / -1860 -290 / -290 Physical Exam Chest: COMMONS NORMALS: normal inspection of the chest and normal palpation of entire chest wall Resp: AUSCULTATION: diminished lung sounds on the left in the lower lung mcclain Cardio: COMMON NORMALS: regular rate, regular rhythm and S1 normal heart sound present RATE: regular rate RHYTHM: regular rhythm HEART SOUNDS: S1 normal heart sound present Urinary Catheter Management^: Cannon: Cath Placed During This Visit: yes Reason for Continuing Indwelling Catheter: Perioperative Use in Selected Surg eries Urinary Catheter Date of Insertion: 04/26/20 Urinary Catheter Time of Insertion: 16:20 Data : 04/30/20 03:44 04/30/20 03:44 Micro: Microbiology 04/26/20 17:05 Gram Stain - Final Chest Anaerobic Culture - Preliminary Wound Culture - Preliminary 04/24/20 11:18 Blood Culture - Final Blood NO GROWTH AFTER 5 DAYS 04/24/20 09:32 Blood Culture - Final Blood NO GROWTH AFTER 5 DAYS A&P Assessment and plan (1) Loculated pleural effusion: Status post decortication. Progressing well. Plan: Recommend shower today with Betasept. May discharge at discretion of our hospitalist service. Follow-up in my clinic in 1 week with chest x-ray. 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
--- NOTE | 2020-04-30 09:26 | PC.NURSE ---
dr rosado at bedside encouraged tcdb exercises with the patient and a shower today after medicine sees the patient.
[2020-04-30] MEDS: allopurinol 100 mg Tablet PO (09:57)
[2020-04-30] MEDS: pantoprazole DR 40 mg Tablet PO (09:57)
[2020-04-30] MEDS: chlorhexidine gluconate 4% Btl 118 mL 1 APPLIC TOPICAL (11:57)
--- NOTE | 2020-04-30 12:20 | PC.OT ---
Patient's goals have all been met and no longer requires skilled OT services
--- NOTE | 2020-04-30 13:50 | PC.NURSE ---
discharge instructions given IV removed cath tip intact. Pain medication given prior to d/c to help with the extra movement and transportation home. discharge instructions given to the patient and his . dressing cared for and applied with the at bedside, education for dressing instructions completed. No needs or concerns voiced at this time. Pt ambulated out to personal vehicle with for home.
--- NOTE | 2020-04-30 17:22 | P.DS_ITS ---
Discharge Providers Date of Admission: 04/24/20 14:17 Date of Discharge: April 30, 2020 Attending Provider at Admission: Mica Guerra MD Attending Provider at Discharge: Guillermo King Primary Care Provider: Kassie Flannery APN Diagnoses at Discharge Discharge Diagnosis (1) Loculated pleural effusion: Status: Acute Reason for Visit Reason for Visit: SOB, AWAITING COVID TEST Hospital Course Hospital Course 55 year old with past medical history of gasteroesophageal reflux disease, anxiety, depression, MRSA cellulites, and pulmonary alveolar proteinosis who presented to hospital with worsening dyspnea as well as left sided chest pain. Patient was initially seen on 04/22/2020 during this time he did have a CTA chest which showed diffuse interstitial and groundglass opacities in the lung compatible with mild pneumonitis. More prominent basilar airspace opacities and air bronchograms were noted concerning for pneumonic infiltrates. Patient did not want to be admitted during which time he was discharged on amoxicillin 500 mg PO TID and Z-pack. He returned to the hospital on 04/24 as he did not show any improvement. Laboratory work up on return to ER showed a WBC of 16.8, hemoglobin of 14.6, hematocrit of 43.1 and a platelet count of 234. Sodium of 132, potassium of 4.1, chloride of 97, bicarbonate of 20, BUN of 10 and a creatinine of 0.8. Procalcitonin of 0.86. COVID-[address] chest/abdomen/pelvis was performed which showed worsening atelectasis of the left lower lobe/lingual with increasing interstitial infiltrates in the upper lobes. Also noted to have worsening atelectasis in the right middle lobe with scattered right lung interstitial infiltrates. Increasing loculated left pleural effusion was also seen. Patient was started on broad-spectrum antibiotics including vancomycin and Zosyn. Pulmonary medicine was consulted. On 04/25/2020 thoracentesis was attempted however unsuccessful as patient was suspected to have explosive Pleuritis. Subsequently cardiothoracic surgery was consulted. He was then taken for left thoracotomy and decortication. Postoperatively patient did have a chest tube in place which was successfully removed on 04/29/2020. In discussion with Cardiothoracic surgery this appeared to be an empyema. Fluid culture analysis was unfortunately not performed. Culture results were sent however did not show any growth. Procalcitonin had improved from 0.86 on admission to 0.17. He was transitioned to oral Augmentin and given a 7 day supply. In the interim he was to follow-up with primary care physician, Pulmonary Medicine. Additional workup included autoimmune which has shown a rheumatoid factor to be positive. Case was discussed with Rheumatology and per recommendations of bilateral hand and feet x-ray was performed. X-ray is noted above. patient was provided information to follow up in 2 weeks with Rhematology ( Dr. Guerra) On 04/30 he was doing well. Did not require any supplemental oxygen at rest or with ambulation. Respiratory status was stable. He was cleared by Cardiot horacic surgery and advised to follow-up in 1 week for repeat chest x-ray. Physical Exam Narrative: EXAM NARRATIVE: General : alert, awake, no distress. HEENT : Grossly unremarkable CVS: NSR CHEST : non-labored respiration on RA. ABD : Nondistended. Ext : no edema Urinary Catheter Management^: Cannon: Cath Placed During This Visit: yes Reason for Continuing Indwelling Catheter: Perioperative Use in Selected Surgeries Urinary Catheter Date of Insertion: 04/26/20 Urinary Catheter Time of Insertion: 16:20 Discharge Data Data Completed and Pending: Completed Studies During Hospitalization Category Date Time Status CT angio chest w abd pel w con Urge nt Cat Scan 04/24/20 11:21 Completed XR chest 1[place] [id number] Routine Exams 04/26/20 06:25 Completed XR chest 1V damion ble [id number] Routine Exams 04/27/20 06:00 Completed XR chest 1V damion ble [id number] Routine Exams 04/28/20 06:00 Completed XR chest 1V damion ble [id number] Routine Exams 04/29/20 06:00 Completed XR chest 1V damion ble [id number] Routine Exams 04/30/20 09:21 Completed XR chest 1V damion ble [id number] Stat Exams 04/24/20 08:39 Completed XR chest 1V damion ble [id number] Stat Exams 04/25/20 15:37 Completed XR foot LT 2V 736 20 Routine Exams 04/29/20 13:07 Completed XR foot RT 2V 736 20 Routine Exams 04/29/20 13:07 Completed XR hand LT 2V 731 20 Routine Exams 04/29/20 13:07 Completed XR hand RT 2V 731 20 Routine Exams 04/29/20 13:07 Completed Pathology: Surgic al [PTH] Routine Pth 04/26/20 18:08 Completed CV echo complete* [id number] Routine Ultrasound 04/25/20 06:00 Completed Pending at discharge Category Date Time Status Anaerobic Culture Stat Lab 04/26/20 17:05 Results Wound Culture and Gram Stain Stat Lab 04/26/20 17:05 Results Labs from last 24 hours 04/30/20 04/30/20 04/26/20 03:44 03:44 02:27 WBC 10.2 H RBC 4.03 L Hgb 12.1 Hct 37.6 L MCV 93.3 MCH 30.0 MCHC 32.2 RDW 13.5 Plt Count 420 H MPV 11.1 H Neut % (Auto) 63.8 Lymph % (Auto) 18.1 Stafford % (Auto) 9.1 Eos % (Auto) 6.6 Baso % (Auto) 0.8 Neut # (Auto) 6.49 Lymph # (Auto) 1.8 Stafford # (Auto) 0.9 Eos # (Auto) 0.7 Baso # (Auto) 0.1 Nucleated RBC % (a uto) 0 Nucleated RBCs # 0.0 Sodium 137 Potassium 4.3 Chloride 100 Carbon Dioxide 25 Anion Gap 16.3 BUN 14 Creatinine 0.8 GFR Calculation 100.7 Glucose 110 Calculated Osmolal ity 285 Calcium 9.6 Total Bilirubin 0.2 AST 28 ALT 36 Alkaline Phosphata se 85 Total Protein 7.0 Albumin 3.2 L Globulin 3.8 Crossmatch See Detail Vitals: Last Vital Signs Temp 98.1 F 04/30/20 13:45 Pulse 88 04/30/20 13:45 Resp 18 04/30/20 13:45 BP 126/71 04/30/20 13:45 Pulse Ox 98 04/30/20 13:45 Discharge Plan Discharge Patient Disposition: Home Condition: Stable Prescriptions: New Percocet 5-325 mg tablet 1 tab PO Q6H Qty: 14 RF: 0 Augmentin 875-125 mg tablet 1 tab PO BID Qty: 14 RF: 0 Continued allopurinol 100 mg tablet 100 mg PO DAILY@05 RF: 0 colchicine [Colcrys] 0.6 mg tablet 0.6 mg PO Q1H PRN (Reason: gout pain) RF: 0 Discontinued azithromycin 250 mg tablet See Rx Instructions .ROUTE .COMPLEX Qty: 6 RF: 0 diphenhydramine HCl [Benadryl] 50 mg Capsule 50 mg PO Q6H PRN (Reason: Allergy Symptoms) RF: 0 ibuprofen 200 mg Tablet 200 mg PO Q6H PRN (Reason: pain/fever) RF: 0 amoxicillin 500 mg capsule 1,000 mg PO TID@ RF: 0 Discharge Orders: Discharge Order (Routine); Ordered 04/30/20 Ordered By: Guillermo King Referrals: Mica Guerra MD [Physician] - 2 weeks Kassie Flannery APN [Primary Care Provider] - 1 week Dionte Youngblood MD [Physician] - 1 week Ashia Murphy MD [Physician] - 1 week Discharge Diet: Cardiac Discharge Activity: Increase activity as tolerated Patient Instructions: Oxycodone/Acetaminophen (By mouth), Amoxicillin/Clavulanate Potassium (By mouth), Chest Tubes (DC) Activity Restrictions/Additional Instructions: Take a shower daily with the ariana-hex 4 (chlorhexidine gluconate) solution and pat the incision dry with a towel. Dyer the incision with a betadine swab and cover with the telfa island dressing. 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
== END 2020-04-30 13:49 | disposition home or self-care (01) | DRG 163 ==
LOC: ER 13:39 → ICU 15:40
PROVIDERS: Thoracic Surgery (Cardiothoracic Vascular Surgery); Admitting Provider Internal Medicine; Emergency Provider Nurse Practitioner Family; PCP Nurse Practitioner; Visit Provider Hospitalist
PROC: 0BD Respiratory System, Extraction (ICD-10-PCS; principal; 2020-04-26 16:00)
DX: J90 Pleural effusion, not elsewhere classified (principal); J86.9 Pyothorax without fistula; K21.9 Gastro-esophageal reflux disease without esophagitis; F41.8 Other specified anxiety disorders; Z86.14 Personal history of Methicillin resistant Staphylococcus aureus infection; Z20.828 Contact with and (suspected) exposure to other viral communicable diseases
CPT/HCPCS: 12345; 36415; 36600; 51702; 71045; 71275; 73120; 73620; 74177; 80048; 80051; 80053; 80202; 81003; 82330; 82805; 83516; 83605; 83880; 84145; 84484; 85025; 85378; 85610; 85651; 85730; 86140; 86431; 86850; 86900; 86920; 87040; 87070; 87075; 87205; 87635; 87804; 88309; 93005; 93306; 94640; 94664; 96372; 96375; 97110; 97116; 97162; 97166; 97530; 99283; J0131; J0696; J1170; J1650; J1885; J2250; J2370; J2405; J2543; J2704; J2765; J3010; J3370; J3490; J3535; J7040; P9016; Q9967

== ENCOUNTER 2020-05-05 11:37 | Outpatient (CLI) | payer SELFPAY ==
--- NOTE | 2020-05-05 11:41 | XR_ITS ---
WS: [id number] XR chest 1V [id number] REASON FOR EXAM: J86.9 - Pyothorax without fistula FINDINGS: Status post left thoracotomy. Chest tubes were removed 04/30/2020. No pneumothorax or hydropneumothorax. Compared to the previous examination of 04/30/2020 there is increasing expansion of left lower lung t here is still interstitial and atelectatic appearing opacity in the left lower lung. The areas of atelectasis in the right lung have resolved. No other significant interval change or new finding. XR/XR chest 1V 63828 IMPRESSION: Status post thoracotomy for empyema as above.
== END 2020-05-05 11:38 | disposition home or self-care (01) ==
LOC: RAD 11:39
PROVIDERS: PCP Nurse Practitioner; Visit Provider Thoracic Surgery (Cardiothoracic Vascular Surgery)
DX: J86.9 Pyothorax without fistula (principal)
CPT/HCPCS: 71045

== ENCOUNTER → 2020-05-23 09:04 | Outpatient (BNVA) | payer SELFPAY | PROVIDERS: PCP Nurse Practitioner; Visit Provider Internal Medicine | DX: R76.8 Other specified abnormal immunological findings in serum (principal); M25.50 Pain in unspecified joint; Z11.59 Encounter for screening for other viral diseases; M10.9 Gout, unspecified; Z87.891 Personal history of nicotine dependence | CPT/HCPCS: 99203; 99204 ==

== ENCOUNTER 2020-07-01 09:11 | Outpatient (CLI) | payer SELFPAY ==
--- NOTE | 2020-07-01 09:18 | XR_ITS ---
WS: [id number] Chest PA view, 07/01/2020 Clinical Data: J86.9 - Pyothorax without fistula Comparison: PA chest, 05/05/2020. Findings: No nodules, masses or effusions are seen. The heart is normal. The pulmonary vascularity is not increased. No pneumonia or pneumothorax is seen. There is pleural reaction at the left lung base . There is erosion and absence of the lateral aspect of the right clavicle. XR/XR chest 1V 48364 Impression: Negative for acute cardiopulmonary change.
== END 2020-07-01 09:12 | disposition home or self-care (01) ==
PROVIDERS: PCP Nurse Practitioner; Visit Provider Thoracic Surgery (Cardiothoracic Vascular Surgery)
DX: J86.9 Pyothorax without fistula (principal)
CPT/HCPCS: 71045

== ENCOUNTER → 2020-09-08 08:56 | Outpatient (BNVA) | payer SELFPAY | PROVIDERS: PCP Nurse Practitioner; Visit Provider Internal Medicine | DX: R76.8 Other specified abnormal immunological findings in serum (principal); M25.50 Pain in unspecified joint; M10.9 Gout, unspecified; F17.210 Nicotine dependence, cigarettes, uncomplicated | CPT/HCPCS: 99213 ==

== ENCOUNTER 2020-09-20 11:21 | Outpatient (CLI) | payer SELFPAY ==
--- NOTE | 2020-09-20 11:26 | XRR_ITS ---
PROCEDURE INFORMATION: Exam: XR Chest Exam date and time: 09/20/2020 11:38 AM Age: 55 years old Clinical indication: Pain; Shortness of breath; Pleuordynia; Prior surgery; Surgery type: Left lung 05/08; Additional info: Shortness of breath/pleurodynia TECHNIQUE: Imaging protocol: XR of the chest. Views: 2 views. COMPARISON: CR XR chest 1V [id number] 07/01/2020 9:28 AM FINDINGS: Lungs: Lungs are well aerated without a focal area of consolidation. Pleural spaces: Small subpulmonic effusion versus pleural thickening on the left. Heart/Mediastinum: Unremarkable. No cardiomegaly. Bones/joints: Prior operative changes distal right clavicle. Correlate. XR/XR chest 2V* [id number] IMPRESSION: Lungs are well aerated without a focal area of consolidation.
== END 2020-09-20 11:22 | disposition home or self-care (01) ==
LOC: RAD 11:24
PROVIDERS: PCP Nurse Practitioner; Visit Provider Nurse Practitioner Family
DX: R06.02 Shortness of breath (principal); R07.81 Pleurodynia
CPT/HCPCS: 71046

== ENCOUNTER 2024-02-06 12:58 | Outpatient (CLI) | payer MEDICARE, SELFPAY ==
--- NOTE | 2024-02-06 13:10 | XR_ITS ---
WS: [id number] Right hand, 3 views, 02/06/2024 Clinical Data: RHEUMATOID ARTHRITIS Comparison: Right hand, 04/29/2020 Findings: No fractures or dislocations are seen. The soft tissues are unremarkable. The joint space s are normal No periarticular demineralization or calcifications are seen. XR/XR hand RT min 3V* [id number] Impression: Negative right hand.
--- NOTE | 2024-02-06 13:10 | XR_ITS ---
WS: [id number] Cervical spine, 3 views, 02/06/2024 Clinical Data: NECK PAIN Comparison: None. Findings: No compression fractures are seen. There is minimal disc space narrowing at C5-C6 and C6-C7 . There are minimal anterior osteophytes at all levels from C3-C7. There is no prevertebral soft tis evan swelling. The odontoid is unremarkable. There is minimal bilateral calcification at the level of the carotid bifurcations. XR/XR cervical spine 3V* [id number] Impression: 1. Minimal disc space narrowing at C5-C6 and C6-C7. 2. Minimal osteoarthritis with spurring C3-C7.
--- NOTE | 2024-02-06 13:10 | XR_ITS ---
WS: [id number] Left hand, 3 views, 02/06/2024 Clinical Data: RHEUMATOID ARTHRITIS Comparison: Left hand, 04/29/2020 Findings: No new fractures or dislocations are seen. There is a healed fracture of the distal left fifth metaca rpal. The soft tissues are unremarkable. The joint spaces are normal No periarticular demineralization or calcifications are seen. XR/XR hand LT min 3V* [id number] Impression: Negative left hand.
--- NOTE | 2024-02-06 13:10 | XR_ITS ---
WS: [id number] Lumbar spine, 3 views, 02/06/2024 Clinical Data: LOW BACK PAIN Comparison: Lumbar spine, 10/27/2003 Findings: No compression fractures or subluxation is seen. There is degenerative disc narrowing at all lumbar l evels. There are osteophytes at all the lumbar vertebral bodies. The transverse processes and SI manny ints are normal. There is calcification in the wall of the abdominal aorta but no aneurysm. XR/XR lumbar spine 2-3V* 87855 Impression: Multilevel degenerative disc narrowing and osteoarthritis.
== END 2024-02-06 12:59 | disposition home or self-care (01) ==
PROVIDERS: PCP Nurse Practitioner Family; Visit Provider Nurse Practitioner Family
DX: M51.36 Other intervertebral disc degeneration, lumbar region (principal); M25.78 Osteophyte, vertebrae; I70.0 Atherosclerosis of aorta; M06.9 Rheumatoid arthritis, unspecified
CPT/HCPCS: 72040; 72100; 73130